=== PATIENT | female | born 1960 | race African-American/Black ===

== ENCOUNTER 2019-05-17 18:24 | Observation (INO) | payer OTHER ==
[2019-05-17] MEDS ORDERED: METOPROLOL TARTRATE 5 MG/5 ML INJ IV ONE ×2 (18:56→19:27)
[2019-05-17] MEDS ORDERED: ENOXAPARIN 100 MG/ML SYR SQ ONE (18:56)
[2019-05-17] MEDS ORDERED: ASPIRIN 81 MG CHEWABLE TABLET ONE (18:56)
[2019-05-17 19:03] LABS: Protime INR 1.32
[2019-05-17 19:04] LABS: Basophils % 1.5 % (0-1.3); Hematocrit 41.5 % (36.0-45.0); Lymphocytes % 20.4 % (15.3-44.8); RBC Red Blood Cell Count 4.98 M/uL (3.86-4.86)
[2019-05-17 19:22] LABS: ALT/SGPT 21 U/L (12-78); AST/SGOT 13 U/L (15-37); Albumin 3.7 g/dL (3.4-5.0); Alkaline Phosphatase 101 U/L (45-117); BUN Blood Urea Nitrogen 8 mg/dL (7-18); Bicarbonate 27 mmol/L (21-32); Bilirubin Direct < 0.1 mg/dL (0-0.2); Bilirubin Total 0.2 mg/dL (0.2-1.0); Glucose Level 127 mg/dL (74-106); NT PRO-BNP 55 pg/mL (<125); Potassium 3.6 mmol/L (3.5-5.1); Protein, Total 8.5 g/dL (6.4-8.2); Sodium Level 143 mmol/L (136-145); Troponin (Emerg Dept Use Only) < 0.02 ng/mL (0.0-0.045)
[2019-05-17] MEDS ORDERED: NITROGLYCERIN 1 GM PKT TD ONE (19:27)
[2019-05-17 19:33] LABS: Blood Morphology Comment NOT SEEN (NOT SEEN); Platelet Estimate ADEQ
--- NOTE | 2019-05-17 19:33 | RAD REPORT ---
EXAM DESCRIPTION: Brando Single View05/17/2019 7:21 pm CLINICAL HISTORY: Chest pain COMPARISON: 2017 FINDINGS: The lungs appear clear of acute infiltrate. The heart is mildly enlarged IMPRESSION: No acute abnormalities displayed
--- NOTE | 2019-05-17 20:07 | EDPHYS ---
Physician Documentation [facility] Name: Chery Mane Age: 58 yrs Sex: Female : 1960 Arrival Date: 05/17/2019 Time: 18:27 Bed 18 Private MD: Caridad Gonzalez ED Physician Edwar Paez HPI: 05/17 18:46 This 58 yrs old Black Female presents to ER via Ambulatory with complaints of Chest pm1 pain. 18:46 The patient or guardian reports chest pain that is located primarily in the mid-sternal pm1 area. Onset: 1 hour prior to arrival. The pain does not radiate. Associated signs and symptoms: Pertinent positives: shortness of breath, Pertinent negatives: abdominal pain, dizziness, headache, nausea, vomiting. The chest pain is described as a pressure. Duration: The patient or guardian reports a single episode, that is still ongoing, but improving. Modifying factors: The symptoms are alleviated by NTG, X1. the symptoms are aggravated by exertion. Severity of pain: in the emergency department the pain has improved. The patient has not recently seen a physician. Patient has not been taking her prescription medications for the past 6 months. Patient is supposed to be taking carvedilol 12.5 mg and simvastatin. Patient with [place] and stent x 1 ten years ago. Historical: - Allergies: 18:45 Codeine; ss 18:45 Sulfa (Sulfonamide Antibiotics); ss 18:45 tramadol; ss 18:45 PENICILLINS; ss - PMHx: 18:45 Myocardial infarction; Hypertension; Hyperlipidemia; ss - PSHx: 18:45 cardiac stent; ss - Immunization history:: Adult Immunizations up to date. - Social history:: Smoking status: Patient/guardian denies using tobacco. - Ebola Screening: : Patient denies exposure to infectious person Patient denies travel to an Ebola-affected area in the 21 days before illness onset. ROS: 18:46 Constitutional: Negative for fever, chills, and weight loss, Eyes: Negative for injury, pm1 pain, redness, and discharge, ENT: Negative for injury, pain, and discharge, Neck: Negative for injury, pain, and swelling. 18:46 Abdomen/GI: Negative for abdominal pain, nausea, vomiting, diarrhea, and constipation, Back: Negative for injury and pain, : Negative for injury, bleeding, discharge, and swelling, MS/Extremity: Negative for injury and deformity, Skin: Negative for injury, rash, and discoloration, Neuro: Negative for headache, weakness, numbness, tingling, and seizure. 18:46 Cardiovascular: Positive for chest pain, palpitations, Negative for edema. 18:46 Respiratory: Positive for shortness of breath. Exam: 18:46 Constitutional: This is a well developed, well nourished patient who is awake, alert, pm1 and in no acute distress. Head/Face: Normocephalic, atraumatic. Eyes: Pupils equal round and reactive to light, extra-ocular motions intact. Lids and lashes normal. Conjunctiva and sclera are non-icteric and not injected. Cornea within normal limits. Periorbital areas with no swelling, redness, or edema. ENT: Nares patent. No nasal discharge, no septal abnormalities noted. Tympanic membranes are normal and external auditory canals are clear. Oropharynx with no redness, swelling, or masses, exudates, or evidence of obstruction, uvula midline. Mucous membranes moist. Neck: Trachea midline, no thyromegaly or masses palpated, and no cervical lymphadenopathy. Supple, full range of motion without nuchal rigidity, or vertebral point tenderness. No Meningismus. Chest/axilla: Normal chest wall appearance and motion. Nontender with no deformity. No lesions are appreciated. Respiratory: Lungs have equal breath sounds bilaterally, clear to auscultation and percussion. No rales, rhonchi or wheezes noted. No increased work of breathing, no retractions or nasal flaring. Abdomen/GI: Soft, non-tender, with normal bowel sounds. No distension or tympany. No guarding or rebound. No evidence of tenderness throughout. 18:46 Cardiovascular: Rate: tachycardic, actual rate is 139 bpm, Rhythm: irregular, Pulses: no pulse deficits are appreciated, Heart sounds: normal, Edema: is not appreciated. Vital Signs: 18:45 BP 148 / 74; Pulse 136; Resp 21; Pulse Ox 98% on R/A; Height 5 ft. 7 in. (170.18 cm); ss Pain 4/10; 18:48 Weight 106.14 kg (R); em 19:00 BP 156 / 84; Pulse 105; Resp 18; Pulse Ox 98% on R/A; em 19:52 BP 129 / 84; Pulse 83; Resp 18; Pulse Ox 97% ; wh 21:30 BP 111 / 55; Pulse 66; Resp 18; Pulse Ox 95% on R/A; wh 21:30 BP 124 / 79; Pulse 70; Resp 18; Pulse Ox 96% on R/A; wh 18:48 Body Mass Index 36.65 (106.14 kg, 170.18 cm) em MDM: 18:35 Patient medically screened. pm1 18:51 Data reviewed: vital signs. Data interpreted: Pulse oximetry: on room air is 98 %. pm1 Interpretation: normal. 20:40 Physician consultation: Edwar Oliveros MD was called at 20:46, was contacted at 20:40, pm1 regarding admission, patient's condition, and will see patient. 05/17 18:38 Order name: Basic Metabolic Panel pm1 05/17 18:38 Order name: CBC with Diff; Complete Time: 19:59 pm1 05/17 18:38 Order name: LFT's pm1 05/17 18:38 Order name: Magnesium; Complete Time: 19:24 pm1 05/17 18:38 Order name: NT PRO-BNP; Complete Time: 19:24 pm1 05/17 18:38 Order name: PT-INR; Complete Time: 19:15 pm1 05/17 18:38 Order name: Troponin (emerg Dept Use Only); Complete Time: 19:24 pm1 05/17 18:39 Order name: Basic Metabolic Panel; Complete Time: 19:24 EDMS 05/17 18:39 Order name: Liver (Hepatic) Function; Complete Time: 19:24 EDMS 05/17 19:06 Order name: Manual Differential; Complete Time: 19:59 EDMS 05/17 21:58 Order name: Basic Metabolic Panel EDMS 05/17 21:58 Order name: Basic Metabolic Panel EDMS 05/17 21:58 Order name: CBC with Automated Diff EDMS 05/17 21:58 Order name: CBC with Automated Diff EDMS 05/17 18:38 Order name: XRAY Chest (1 view); Complete Time: 22:39 pm1 05/17 18:38 Order name: EKG; Complete Time: 18:39 pm1 05/17 21:57 Order name: CONS Physician Consult EDMS 05/17 21:57 Order name: Heart Healthy [facility] 05/17 21:58 Order name: Echo with Doppler [facility] 05/17 21:58 Order name: EKG Electrocardiogram [facility] 05/17 21:58 Order name: Lipid Profile [facility] 05/17 21:58 Order name: Lipid Profile [facility] 05/17 21:58 Order name: Troponin I [facility] 05/17 21:58 Order name: Troponin I [facility] 05/17 21:58 Order name: Troponin I [facility] 05/17 18:38 Order name: Cardiac monitoring; Complete Time: 18:43 pm1 05/17 18:38 Order name: EKG - Nurse/Tech; Complete Time: 18:43 pm1 05/17 18:38 Order name: IV Saline Lock; Complete Time: 18:43 pm1 05/17 18:38 Order name: Labs collected and sent; Complete Time: 18:49 pm1 05/17 18:38 Order name: O2 Per Protocol; Complete Time: 18:49 pm1 05/17 18:38 Order name: O2 Sat Monitoring; Complete Time: 18:49 pm1 05/17 19:13 Order name: EKG - Nurse/Tech; Complete Time: 19:20 05/17 21:58 Order name: EKG Electrocardiogram [facility] EC:46 Rate is 139 beats/min. Rhythm is irregular. QRS [place] is Normal. SC interval is normal. pm1 No Q waves. T waves are Normal. No ST changes noted. Clinical impression: Atrial Fibrillation. 20:25 Rate is 88 beats/min. Rhythm is regular, Normal Sinus Rhythm with No ectopy. QRS [place] pm1 is Normal. No Q waves. T waves are Normal. No ST changes noted. Clinical impression: Normal ECG. Administered Medications: 18:58 Drug: Aspirin 325 mg Route: PO; em 20:42 Follow up: Response: No adverse reaction wh 19:12 Drug: Lovenox 1 mg/kg Route: Sub-Q; Site: right lower abdomen; wh 20:42 Follow up: Response: No adverse reaction wh 19:29 Drug: Nitro-Bid Ointment 2 % 1 inches Route: Transdermal; Site: anterior chest wall; wh 20:42 Follow up: Response: No adverse reaction; Marked relief of symptoms wh 19:36 Drug: Lopressor 5 mg {Note: HR 118 BP 126/107.} Route: IVP; Site: right forearm; wh 20:43 Follow up: Response: No adverse reaction 20:58 Drug: Lopressor 25 mg Route: PO; 21:50 Follow up: Response: No adverse reaction Disposition: 05/18 16:46 Co-signature as Attending Physician, Edwar Paez MD. ma2 Disposition: 05/17/19 20:06 Hospitalization ordered by Edwar Oliveros for Observation. Preliminary diagnosis are Unspecified atrial fibrillation - new onset, Chest pain, unspecified. - Bed requested for Telemetry/MedSurg (observation). - Status is Observation. - Condition is Stable. - Problem is new. - Symptoms have improved. UTI on Admission? No Signatures: Dispatcher [employer] EDAna Laura Melendez RN RN Yoav Moise, CREDENTIALING MANAGER CREDENTIALING MANAGER Jen Kimbrough RN RN ss Nathen Linn, ARCHIVES SPECIALIST ARCHIVES SPECIALIST pm1 Gianni Lynne Jeannine, MD ADRI Vann ma2 Corrections: (The following items were deleted from the chart) 05/17 22:10 20:06 Hospitalization Ordered by Edwar Oliveros MD for Observation. Preliminary diagnosis is Unspecified atrial fibrillation - new onsetChest pain, unspecified. Bed requested for Telemetry/MedSurg (observation). Status is Observation. Condition is Stable. Problem is new. Symptoms have improved. UTI on Admission? No. pm1 23:03 22:10 05/17/2019 20:06 Hospitalization Ordered by Edwar Oliveros MD for Observation. Preliminary diagnosis is Unspecified atrial fibrillation - new onsetChest pain, unspecified. Bed requested for Telemetry/MedSurg (observation). Status is Observation. Condition is Stable. Problem is new. Symptoms have improved. UTI on Admission? No. mw
--- NOTE | 2019-05-17 20:07 | ER ---
Nurse's Notes [facility] Name: Chery Mane Age: 58 yrs Sex: Female : 1960 Arrival Date: 05/17/2019 Time: 18:27 Bed 18 Private MD: Caridad Gonzalez Diagnosis: Chest pain, unspecified;Unspecified atrial fibrillation-new onset Presentation: 05/17 18:40 Presenting complaint: Patient states: abd cramping that began just prior to arrival, ss that lead to nausea. Patient reports she began having chest pain shortly after with palpitations, which she then took a nitro SL which seemed to relieve the pain. Patient reports she has a history of HTN and high cholesterol, but has not been taking her medications because she has not been able to afford them. Transition of care: patient was not received from another setting of care. Onset of symptoms was May 17, 2019. Risk Assessment: Do you want to hurt yourself or someone else? Patient reports no desire to harm self or others. Initial Sepsis Screen: Does the patient meet any 2 criteria? RR > 20 per min. HR > 90 bpm. Does the patient have a suspected source of infection? No. Patient's initial sepsis screen is negative. Note Patient is unsure whether or not she has a history of Atrial fib. 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 18:40 Method Of Arrival: Ambulatory ss 18:40 Acuity: JOHANN 2 ss Historical: - Allergies: 18:45 Codeine; ss 18:45 Sulfa (Sulfonamide Antibiotics); ss 18:45 tramadol; ss 18:45 PENICILLINS; ss - PMHx: 18:45 Myocardial infarction; Hypertension; Hyperlipidemia; ss - PSHx: 18:45 cardiac stent; ss - Immunization history:: Adult Immunizations up to date. - Social history:: Smoking status: Patient/guardian denies using tobacco. - Ebola Screening: : Patient denies exposure to infectious person Patient denies travel to an Ebola-affected area in the 21 days before illness onset. Screenin:47 Abuse screen: Denies threats or abuse. Denies injuries from another. Nutritional ss screening: No deficits noted. Tuberculosis screening: Never had TB. Fall Risk None identified. 18:50 Abuse screen: Denies threats or abuse. Nutritional screening: No deficits noted. em Tuberculosis screening: No symptoms or risk factors identified. Fall Risk None identified. Assessment: 18:47 General: Appears in no apparent distress. comfortable, Behavior is calm, cooperative, ss Denies fever, feeling ill, fatigue, chills. Pain: Complains of pain in chest Pain does not radiate. Pain currently is 4 out of 10 on a pain scale. Quality of pain is described as pressure, Pain began 1 hour ago. Is continuous, Alleviated by Nitro. Neuro: Level of Consciousness is awake, alert, obeys commands, Oriented to person, place, time, situation, Speech is normal, Facial symmetry appears normal, Pupils are PERRLA. Cardiovascular: Capillary refill < 3 seconds is brisk in bilateral fingers. Cardiovascular: Rhythm is atrial fibrillation with rapid ventricular response. Respiratory: Reports shortness of breath on exertion since 1 hour ago Airway is patent Respiratory effort is even, unlabored, Respiratory pattern is regular, symmetrical, Breath sounds are clear bilaterally. GI: Reports brief nausea after episode of abd cramping 1 hour ago just prior to chest pain beginning. : No signs and/or symptoms were reported regarding the genitourinary system. EENT: Oral mucosa is moist. Throat is clear. Derm: Skin is pink, warm \T\ dry. normal. Musculoskeletal: Circulation, motion, and sensation intact. Range of motion: intact in all extremities, Swelling absent. 19:03 Reassessment: held Lopressor, pt rhythm SR, provider notified. em 19:15 Reassessment: Patient appears in no apparent distress at this time. Patient and/or family updated on plan of care and expected duration. Pain level reassessed. Patient is alert, oriented x 3, equal unlabored respirations, skin warm/dry/pink. 19:51 Reassessment: Patient appears in no apparent distress at this time. No changes from previously documented assessment. Patient and/or family updated on plan of care and expected duration. Pain level reassessed. Patient is alert, oriented x 3, equal unlabored respirations, skin warm/dry/pink. 20:10 Reassessment: POC Discussed with Nathen Linn GEOSPATIAL EXTRACTOR ANALYSIS for hospitalization. Repeat EKG wh done with SR. Pt with no more chest pain . 21:00 Reassessment: Patient appears in no apparent distress at this time. No changes from previously documented assessment. Patient and/or family updated on plan of care and expected duration. Pain level reassessed. Patient is alert, oriented x 3, equal unlabored respirations, skin warm/dry/pink. Patient denies pain at this time. 22:05 Reassessment: Patient appears in no apparent distress at this time. No changes from previously documented assessment. Patient and/or family updated on plan of care and expected duration. Pain level reassessed. Patient is alert, oriented x 3, equal unlabored respirations, skin warm/dry/pink. Patient denies pain at this time. Patient states feeling better. Patient states symptoms have improved. 23:00 Reassessment: Patient appears in no apparent distress at this time. No changes from previously documented assessment. Patient and/or family updated on plan of care and expected duration. Pain level reassessed. Patient is alert, oriented x 3, equal unlabored respirations, skin warm/dry/pink. Patient denies pain at this time. Patient states feeling better. Patient states symptoms have improved. Vital Signs: 18:45 BP 148 / 74; Pulse 136; Resp 21; Pulse Ox 98% on R/A; Height 5 ft. 7 in. (170.18 cm); ss Pain 4/10; 18:48 Weight 106.14 kg (R); em 19:00 BP 156 / 84; Pulse 105; Resp 18; Pulse Ox 98% on R/A; em 19:52 BP 129 / 84; Pulse 83; Resp 18; Pulse Ox 97% ; wh 21:30 BP 111 / 55; Pulse 66; Resp 18; Pulse Ox 95% on R/A; wh 21:30 BP 124 / 79; Pulse 70; Resp 18; Pulse Ox 96% on R/A; wh 18:48 Body Mass Index 36.65 (106.14 kg, 170.18 cm) em ED Course: 18:27 Patient arrived in ED. mr 18:27 Caridad Gonzalez is Private Physician. mr 18:34 Nathen Linn NP is PHCP. pm1 18:34 Edwar Paez MD is Attending Physician. pm1 18:38 Yoav Moise LVN is Primary Nurse. em 18:44 Triage completed. ss 18:45 Arm band placed on right wrist. ss 18:47 Patient has correct armband on for positive identification. Placed in gown. Bed in low ss position. Call light in reach. Side rails up X 1. Adult w/ patient. phototypesetting equipment monitor on. Pulse ox on. NIBP on. 18:47 Patient maintains SpO2 saturation greater than 95% on room air. ss 19:22 XRAY Chest (1 view) In Process Unspecified. EDMS 20:05 Edwar Oliveros MD is Hospitalizing Provider. pm1 22:58 No provider procedures requiring assistance completed. Patient admitted, IV remains in place. Administered Medications: 18:58 Drug: Aspirin 325 mg Route: PO; em 20:42 Follow up: Response: No adverse reaction 19:12 Drug: Lovenox 1 mg/kg Route: Sub-Q; Site: right lower abdomen; 20:42 Follow up: Response: No adverse reaction 19:29 Drug: Nitro-Bid Ointment 2 % 1 inches Route: Transdermal; Site: anterior chest wall; 20:42 Follow up: Response: No adverse reaction; Marked relief of symptoms 19:36 Drug: Lopressor 5 mg {Note: HR 118 BP 126/107.} Route: IVP; Site: right forearm; 20:43 Follow up: Response: No adverse reaction 20:58 Drug: Lopressor 25 mg Route: PO; 21:50 Follow up: Response: No adverse reaction Outcome: 20:06 Decision to Hospitalize by Provider. pm1 22:59 Admitted to Tele accompanied by nurse, via wheelchair, room 406, with chart, Report wh called to Sandra Noble RN 22:59 Condition: stable 22:59 Instructed on the need for admit. 23:03 Patient left the ED. Signatures: Dispatcher [employer] HAZELMO Svetlana Still MoiseYoav, MANAGER HOTEL MANAGER HOTEL em Jen Urias, ROBIN RN ss Nathen Linn, GEOSPATIAL EXTRACTOR ANALYSIS GEOSPATIAL EXTRACTOR ANALYSIS pm1 Gianni Lynne Corrections: (The following items were deleted from the chart) 18:50 18:47 Respiratory: Airway is patent Respiratory effort is even, unlabored, Respiratory ss pattern is regular, symmetrical, Breath sounds are clear bilaterally. ss
[2019-05-17] MEDS ORDERED: METOPROLOL TAR 25 MG TAB ONE (20:52)
[2019-05-17] MEDS ORDERED: ACETAMINOPHEN 500 MG TAB PO PRN (21:52)
[2019-05-17] MEDS ORDERED: ALPRAZOLAM 0.25 MG TABLET PO PRN (21:52)
[2019-05-17 23:35] VITALS: BMI 37.3
[2019-05-18 04:27] LABS: Urine Appearance CLEAR; Urine Bilirubin NEGATIVE (NEG); Urine Blood NEGATIVE (NEG); Urine Color YELLOW; Urine Glucose NEGATIVE (NEG); Urine Protein NEGATIVE (NEG); Urine Specific Gravity >=1.030 (1.005-1.030)
[2019-05-18 04:34] LABS: Absolute Lymphocytes (CBC) 2.6 K/uL (0.7-4.9); Hematocrit 37.9 % (36.0-45.0); Lymphocytes % 30.6 % (15.3-44.8); MPV 9.3 fL (7.6-11.3); RBC Red Blood Cell Count 4.48 M/uL (3.86-4.86)
[2019-05-18 04:42] LABS: Potassium 3.9 mmol/L (3.5-5.1)
[2019-05-18 04:44] LABS: Urine Microscopic Reflex NO UMIC
[2019-05-18 05:10] LABS: Troponin I 0.03 ng/mL (0.0-0.045)
--- NOTE | 2019-05-18 07:23 | P.HP ---
Certification for Inpatient Patient admitted to: Observation With expected LOS: <2 Midnights Patient will require the following post-hospital care: None Practitioner: I am a practitioner with admitting privileges, knowledge of patient current condition, hospital course, and medical plan of care. Services: Services provided to patient in accordance with Admission requirements found in Title 42 Section 412.3 of the Code of Federal Regulations Patient History Date of Service: 05/17/19 Reason for admission: Chest pain r/o ACS History of Present Illness: Patient is a 58-year-old female came to the hospital with chest pain. Patient has some nausea. Patient hasn't been taking her medications as she was able to afford them. She did have some nitro laying around so she took a sublingual nitro. Her chest pain resolved. She came into the hospital for further evaluation. In the emergency room her heart rate was elevated. She was found to be in atrial fibrillation with EKG. She was given Lopressor x3 in her rate went to a sinus rhythm. She was also given Lovenox. Patient's initial troponin was negative. She will be admitted to the hospital for further evaluation. Concern for unstable angina as well. Will do a stress test and pending results may need further intervention. Allergies tramadol Allergy (Severe, Verified 12/25/11 14:45) Nausea/Vomiting codeine [Codeine] Allergy (Verified 12/24/11 12:36) Nausea/Vomiting Penicillins Allergy (Unverified 05/25/17 12:45) Unknown Sulfa (Sulfonamide Antibiotics) [Sulfa(Sulfonamide Antibiotics)] Allergy ( Verified 12/24/11 12:36) Rash Penici Allergy (Uncoded 03/21/17 01:35) Unknown Home Medications: Carvedilol [Coreg] 12.5 mg PO BID 05/18/19 - Past Medical/Surgical History Has patient received pneumonia vaccine in the past: No Diabetic: No -: [place] w/ stent placement -: HTN -: HLD -: JELANI w/ Cpap use -: R ankle surgery - Family History Father Medical History: Heart disease Notes: heart disease Sister Medical History: Stroke Notes: stroke Brother Medical History: Heart disease Notes: Heart attack Grand mother Medical History: Heart disease Notes: CHF Grand father Medical History: Stroke Notes: stroke - Social History Smoking Status: Never smoker Alcohol use: No CD- Drugs: No Caffeine use: Yes Place of Residence: Home Review of Systems 10-point ROS is otherwise unremarkable Physical Examination - Vital Signs Temperature: 97 F Blood Pressure: 129/61 Pulse: 65 Respirations: 16 Pulse Ox (%): 97 - Physical Exam General: Alert, In no apparent distress, Oriented x3 HEENT: Atraumatic, PERRLA, Mucous membr. moist/pink, EOMI, Sclerae nonicteric Neck: Supple, 2+ carotid pulse no bruit, No LAD, Without JVD or thyroid abnormality Respiratory: Clear to auscultation bilaterally, Normal air movement Cardiovascular: Regular rate/rhythm, Normal S1 S2, No murmurs Gastrointestinal: Normal bowel sounds, Soft and benign, Non-distended, No tenderness Musculoskeletal: No clubbing, No swelling, No tenderness Integumentary: No rashes Neurological: Normal gait, Normal speech, Normal strength at 5/5 x4 extr, Normal tone, Sensation intact, Cranial nerves 3-12 intact, Normal affect Lymphatics: No axilla or inguinal lymphadenopathy - Studies Laboratory Data (last 24 hrs) 05/17/19 18:50: PT 15.4 H, INR 1.32 05/17/19 18:50: WBC 9.9, Hgb 13.7, Hct 41.5, Plt Count 258 05/17/19 18:50: Sodium 143, Potassium 3.6, BUN 8, Creatinine 1.03, Glucose 127 H , Magnesium 2.0, Total Bilirubin 0.2, AST 13 L, ALT 21, Alkaline Phosphatase 101 Assessment & Plan - Problems (Diagnosis) (1) Chest pain, rule out acute myocardial infarction Current Visit: Yes Status: Acute (2) Unstable angina Current Visit: Yes Status: Acute (3) Atrial fibrillation Current Visit: Yes Status: Acute (4) Hypertension Current Visit: Yes Status: Acute Qualifiers: Hypertension type: essential hypertension Qualified Code(s): I10 - Essential (primary) hypertension - Plan 1. Serial troponins and EKG 2. Cardiology consultation to evaluate chest pain & atrial fibrillation 3. Echocardiogram and stress test in the morning 4. Anti-platelet therapy, anticoagulation, beta-danielito, statin, and O2 as needed 5. IV morphine for pain 6. Nitro paste 7. Strict blood pressure control 8. GI and DVT prophylaxis Discharge Plan: Home Plan to discharge in: 24 Hours - Advance Directives Does patient have a Living Will: No Does patient have a Durable POA for Healthcare: No - Code Status/Comfort Care Code Status Assessed: Yes Code Status: Full Code Critical Care: No Time Spent Managing PTS Care (In Minutes): 45
[2019-05-18] MEDS ORDERED: METOPROLOL TAR 50 MG TAB PO SCH ×2 (08:00→09:00)
[2019-05-18] MEDS: NITROGLYCERIN 1 GM PKT TD SCH ×2 (08:00→08:16)
[2019-05-18 08:04] LABS: Thyroid Stimulating Hormone 1.92 uIU/mL (0.360-3.740)
[2019-05-18] MEDS ORDERED: REGADENOSON 0.4 MG/5 ML SYR IV ONE (08:11)
--- NOTE | 2019-05-18 08:38 | EKG ---
Test Date: 2019-05-17 Test Time: 20:25:28 Entry Level Electrician: EBONIE MEASUREMENT RESULTS: Intervals: Rate: 88 RI: 138 QRSD: 78 QT: 368 QTc: 445 [place]: P: 48 RI: 138 QRS: 52 T: 51 INTERPRETIVE STATEMENTS: Normal sinus rhythm Normal ECG Compared to ECG 05/17/2019 19:16:33 Myocardial infarct finding no longer present Electronically Signed On 05-18-19 08:37:33 LEARNING SUPPORT SERVICES DIRECTOR by Michael Cornejo
[2019-05-18] MEDS ORDERED: SOTALOL HCL 80 MG TAB PO ONE (08:51)
[2019-05-18] MEDS ORDERED: APIXABAN 5 MG TABLET PO SCH (09:00)
[2019-05-18] MEDS ORDERED: ASPIRIN EC 81 MG TAB PO SCH (09:00)
--- NOTE | 2019-05-18 10:57 | P.DS ---
Admission Date: 05/17/19 Discharge Date: 05/18/19 Primary Care Provider: Len Gonzalez NP; Cardiology-Dr. Dodson Disposition: ROUTINE DISCHARGE Discharge Condition: GOOD Reason for Admission: Chest pain r/o ACS Consultations: Cardiology-Dr. Cornejo Procedures: ECHO: EF 61% LEFT VENTRICULAR WALL MOTION: NORMAL DOPPLER/COLOR FLOW: NO AORTIC STENOSIS OR AORTIC REGURGITATION. NORMAL CARDIAC DOPPLER. COMMENTS: NORMAL LEFT VENTRICULAR EJECTION FRACTION. MILD AORTIC SCLEROSIS WITH NO AORTIC STENOSIS OR AORTIC REGURGITATION. STUDY WAS DONE DURING NORMAL SINUS RHYTHM. Medical Problem List: Chest pain secondary to new onset atrial fibrillation with RVR, now normal sinus rhythm Hypertension Hyperlipidemia Brief History of Present Illness: 58-year-old female presented to emergency room with chest pain and nausea. Patient with history of hypertension and hyperlipidemia. Patient admits not taking her medication as she has not been able to get a refill from her PCP. She reports not being able to afford her medication. In the ER patient was found to have atrial fibrillation with RVR on EKG. Patient was given Lopressor. Patient went to sinus rhythm. Patient was admitted for further evaluation. Hospital Course: Patient presented with chest pain. Patient found to have new onset atrial fibrillation with RVR in the emergency room. Patient was given IV Lopressor. Patient converted to normal sinus rhythm. Patient was admitted for further evaluation. Patient seen and evaluated by Cardiology. Cardiology recommended initiation of medication including Eliquis and Betapace. No further intervention is needed at this time. At discharge she will continue with Eliquis 5 mg 1 pill twice daily and Betapace 40 mg 1 pill twice daily. Education on atrial fibrillation, Eliquis and Betapace will be provided. Recommend to follow up with cardiology in 1-2 weeks to follow up this hospitalization. Recommend to recheck lab-BMP and CBC in 1-2 weeks to monitor her progress. Social work consulted to help provide resource is to continue her new medications. Patient with history of hypertension and hyperlipidemia. Patient had not been able to follow up with a PCP to refill medication. Patient previously on carvedilol. Medication has been discontinued since the patient will be on new medication including Betapace. At discharge patient will continue with her regimen as stated above. Patient will continue with Lipitor 20 mg daily for her hyperlipidemia. Recommend to recheck lab-CMP and fasting lipid panel in 4- 6 weeks to monitor progress. Vital Signs/Physical Exam: Temp Pulse Resp BP Pulse Ox 96.8 F 68 18 139/77 96 05/18/19 08:00 05/18/19 08:00 05/18/19 08:00 05/18/19 08:00 05/18/19 08:00 General: Alert, In no apparent distress, Oriented x3, Cooperative HEENT: Atraumatic Neck: Supple Respiratory: Clear to auscultation bilaterally, Normal air movement Cardiovascular: Normal pulses, Regular rate/rhythm Gastrointestinal: Normal bowel sounds, Soft and benign, Non-distended, No tenderness, No masses, No rebound, No guarding Musculoskeletal: No erythema, No tenderness, No warmth Integumentary: No erythema, No warmth, No cyanosis Neurological: Normal speech, Normal strength at 5/5 x4 extr, Normal tone, Normal affect Laboratory Data at Discharge: WBC 8.4 K/uL (4.3-10.9) D 05/18/19 03:35 Hgb 12.3 g/dL (12.0-15.0) 05/18/19 03:35 Hct 37.9 % (36.0-45.0) 05/18/19 03:35 Plt Count 235 K/uL (152-406) 05/18/19 03:35 PT 15.4 SECONDS (9.5-12.5) H 05/17/19 18:50 INR 1.32 05/17/19 18:50 Sodium 143 mmol/L (136-145) 05/18/19 03:35 Potassium 3.9 mmol/L (3.5-5.1) 05/18/19 03:35 BUN 9 mg/dL (7-18) 05/18/19 03:35 Creatinine 0.88 mg/dL (0.55-1.3) 05/18/19 03:35 Glucose 90 mg/dL (74-106) 05/18/19 03:35 Magnesium 2.0 mg/dL (1.8-2.4) 05/17/19 18:50 Total Bilirubin 0.2 mg/dL (0.2-1.0) 05/17/19 18:50 AST 13 U/L (15-37) L 05/17/19 18:50 ALT 21 U/L (12-78) 05/17/19 18:50 Alkaline Phosphatase 101 U/L (45-117) 05/17/19 18:50 Troponin I 0.03 ng/mL (0.0-0.045) 05/18/19 03:35 Triglycerides Cancelled 05/18/19 06:00 Cholesterol Cancelled 05/18/19 06:00 HDL Cholesterol Cancelled 05/18/19 06:00 Cholesterol/HDL Ratio Cancelled 05/18/19 06:00 Home Medications: Apixaban [Eliquis] 5 mg PO BID #60 tablet 05/18/19 Atorvastatin Calcium [Lipitor*] 20 mg PO BEDTIME #30 tab 05/18/19 Sotalol HCl [Betapace*] 40 mg PO BID 6AM 6PM #60 tab 05/18/19 New Medications: Apixaban [Eliquis] 5 mg PO BID #60 tablet Atorvastatin Calcium [Lipitor*] 20 mg PO BEDTIME #30 tab Sotalol HCl [Betapace*] 40 mg PO BID 6AM 6PM #60 tab Patient Discharge Instructions: 1. Follow up with her PCP in 1 week to follow up this hospitalization. 2. Patient presented with chest pain. Patient found to have new onset atrial fibrillation with RVR in the emergency room. Patient was given IV Lopressor. Patient converted to normal sinus rhythm. Patient was admitted for further evaluation. Patient seen and evaluated by Cardiology. Cardiology recommended initiation of medication including Eliquis and Betapace. No further intervention is needed at this time. At discharge she will continue with Eliquis 5 mg 1 pill twice daily and Betapace 40 mg 1 pill twice daily. Education on atrial fibrillation, Eliquis and Betapace will be provided. Recommend to follow up with cardiology in 1-2 weeks to follow up this hospitalization. Recommend to recheck lab-BMP and CBC in 1-2 weeks to monitor her progress. Social work consulted to help provide resource is to continue her new medications. 3. Patient with history of hypertension and hyperlipidemia. Patient had not been able to follow up with a PCP to refill medication. Patient previously on carvedilol. Medication has been discontinued since the patient will be on new medication including Betapace. At discharge patient will continue with her regimen as stated above. Patient will continue with Lipitor 20 mg daily for her hyperlipidemia. Recommend to recheck lab-CMP and fasting lipid panel in 4-6 weeks to monitor progress. Diet: AHA Activity: Fall precautions Time spent managing pt's care (in minutes): 55
--- NOTE | 2019-05-18 11:44 | ECHO ---
HEIGHT: 5 ft 7 in WEIGHT: 238 lb 9.6 oz DATE OF STUDY: 05/18/[address]: Edwar Oliveros MD 2-DIMENSIONAL: YES M.MODE: YES DOPPLER: YES COLOR FLOW: YES TDS: NO PORTABLE: NO DEFINITY: NO BUBBLE STUDY: NO DIAGNOSIS: ATRIAL FIBRILLATION CARDIAC HISTORY: CATHERIZATION: YES SURGERY: NO PROSTHETIC VALVE: NO PACEMAKER: NO MEASUREMENTS (cm) DIASTOLIC (NORMALS) SYSTOLIC (NORMALS) IVSd 1.0 (0.6-1.2) LA Diam 3.5 (1.9-4.0) LVEF 61% LVIDd 4.3 (3.5-5.7) LVIDs 2.9 (2.0-3.5) %FS 32% LVPWd 1.0 (0.6-1.2) Ao Diam 2.5 (2.0-3.7) 2 DIMENSIONAL ASSESSMENT: RIGHT ATRIUM: NORMAL LEFT ATRIUM: NORMAL RIGHT VENTRICLE: NORMAL LEFT VENTRICLE: NORMAL TRICUSPID VALVE: NORMAL MITRAL VALVE: NORMAL PULMONIC VALVE: NORMAL AORTIC VALVE:MILD LEAFLET THICKENING, 3 CUSP PERICARDIAL EFFUSION: NONE AORTIC ROOT: NORMAL LEFT VENTRICULAR WALL MOTION: NORMAL DOPPLER/COLOR FLOW: NO AORTIC STENOSIS OR AORTIC REGURGITATION. NORMAL CARDIAC DOPPLER. COMMENTS: NORMAL LEFT VENTRICULAR EJECTION FRACTION. MILD AORTIC SCLEROSIS WITH NO AORTIC STENOSIS OR AORTIC REGURGITATION. STUDY WAS DONE DURING NORMAL SINUS RHYTHM. TECHNOLOGIST: Kandi MARTINES
[2019-05-18 12:18] VITALS: BP 147/71; TEMP 96.9
--- NOTE | 2019-05-18 13:19 | CON ---
Identifying Data: 58-year-old woman. Chief Complaint: Chest pain. Reason For Consult: Atrial fibrillation. History Of Present Illness: Ms. Mane started having chest pain. She felt her heart fluttering. R oughly an hour later, she came to the hospital. She was in atrial fibrillation. She is in sinus rhy thm presently on telemetry. I do not believe an EKG has been done to prove that. This is the patien t's first episode of chest pain. She had a cardiac cath a little bit more than a year ago that showe d minor coronary plaquing, normal ejection fraction. As an outpatient, she takes carvedilol 12.5 b.i .d. for hypertension. Since being in the hospital, her troponins are all normal. She has resumed si nus rhythm and she feels back to her usual self. Allergies: SHE IS ALLERGIC TO TRAMADOL, CODEINE, PENICILLINS, AND SULFA ANTIBIOTICS. Physical Examination: Vital Signs: 5 feet 7 inches. 238 pounds. General: Obese, alert, oriented, pleasant. Not in distress. Lungs: Clear. Cardiac: Within normal limits. Abdomen: Soft. Extremities: No edema, cyanosis, or clubbing. Laboratory Data: Troponins are all normal. Impression: The patient has paroxysmal atrial fibrillation. We should stop her carvedilol and give her Betapace and Eliquis. Thank you very much for your kind referral of Ms. Mane. I will follow her with you. DIMITRI Voice ID: [id number] Report ID: [id number]
[2019-05-18 14:54] VITALS: O2SAT 95
--- NOTE | 2019-05-18 15:56 | EKG ---
Test Date: 2019-05-17 Test Time: 18:39:38 Sales Trader: ONDINA MEASUREMENT RESULTS: Intervals: Rate: 139 DC: QRSD: 80 QT: 308 QTc: 468 [place]: P: DC: QRS: 62 T: -42 INTERPRETIVE STATEMENTS: Atrial fibrillation with rapid ventricular response Nonspecific ST and T wave abnormality Abnormal ECG Compared to ECG 12/26/2011 07:20:14 ST (T wave) deviation now present Sinus bradycardia no longer present Electronically Signed On 05-18-19 15:54:31 ALLIED HEALTH TEACHER by Michael Cornejo
--- NOTE | 2019-05-18 15:56 | EKG ---
Test Date: 2019-05-17 Test Time: 19:16:33 Fruit Loader Machine Operator: ONDINA MEASUREMENT RESULTS: Intervals: Rate: 99 CA: 130 QRSD: 82 QT: 360 QTc: 462 [place]: P: 47 CA: 130 QRS: 64 T: 131 INTERPRETIVE STATEMENTS: Normal sinus rhythm Lateral infarct, age undetermined Abnormal ECG Compared to ECG 05/17/2019 18:39:38 Myocardial infarct finding now present Atrial fibrillation no longer present ST (T wave) deviation no longer present Electronically Signed On 05-18-19 15:54:27 HOUSEKEEPING COORDINATOR by Michael Cornejo
[2019-05-18] MEDS ORDERED: SOTALOL HCL 80 MG TAB PO SCH (18:00)
[2019-05-18] MEDS ORDERED: ATORVASTATIN 20 MG TAB PO SCH (21:00)
== END 2019-05-18 13:56 | disposition home or self-care (01) ==
LOC: ER 18:24 → 4TH 22:41
PROVIDERS: ADMIT Hospitalist; ATTEND Family Medicine
DX: I48.91 Unspecified atrial fibrillation (principal); I10 Essential (primary) hypertension; E78.5 Hyperlipidemia, unspecified; Z88.0 Allergy status to penicillin; Z88.2 Allergy status to sulfonamides
CPT/HCPCS: 93005 ×3; 93306; 85025 ×2; 80048 ×2; 36415; 83735; 85610; 80061; 80076; 84443; 81003; 84484 ×3; 84439; 83880; 71045; 96372; 96374; 99285; J1650; G0378 ×2; J2785

== ENCOUNTER 2020-04-09 16:15 | Observation (INO) | payer OTHER ==
[2020-04-09 18:10] LABS: Absolute Lymphocytes (CBC) 1.8 K/uL (0.7-4.9); Basophils % 1.4 % (0-1.3); Hematocrit 40.7 % (36.0-45.0); Lymphocytes % 21.9 % (15.3-44.8); MPV 8.8 fL (7.6-11.3); RBC Red Blood Cell Count 4.91 M/uL (3.86-4.86)
[2020-04-09 18:11] LABS: Protime INR 1.57
--- NOTE | 2020-04-09 18:37 | RAD REPORT ---
EXAM DESCRIPTION: RAD - Chest Single View - 04/09/2020 5:50 pm CLINICAL HISTORY: CHEST PAIN Chest pain. COMPARISON: Chest Single View dated 05/17/2019; Chest Pa And Lat (2 Views) dated 03/21/2017; CHEST PA AND LAT 2 VIEW dated 05/21/2012; CHEST SINGLE VIEW dated 12/24/2011 FINDINGS: Portable technique limits examination quality. Mild interstitial pulmonary edema. The heart is moderately enlarged in size. No displaced fractures. IMPRESSION: Mild CHF.
[2020-04-09 18:42] LABS: ALT/SGPT 25 U/L (12-78); AST/SGOT 15 U/L (15-37); Albumin 3.4 g/dL (3.4-5.0); Alkaline Phosphatase 99 U/L (45-117); BUN Blood Urea Nitrogen 10 mg/dL (7-18); Bicarbonate 29 mmol/L (21-32); Bilirubin Direct 0.1 mg/dL (0-0.2); Bilirubin Total 0.4 mg/dL (0.2-1.0); Glucose Level 105 mg/dL (74-106); Magnesium 2.1 mg/dL (1.8-2.4); NT PRO-BNP 56 pg/mL (<125); Potassium 3.7 mmol/L (3.5-5.1); Protein, Total 7.9 g/dL (6.4-8.2); Sodium Level 142 mmol/L (136-145); Troponin (Emerg Dept Use Only) < 0.02 ng/mL (0.0-0.045)
[2020-04-09] MEDS ORDERED: FENTANYL CITR 100 MCG/2 ML ONE (18:46)
--- NOTE | 2020-04-09 18:58 | ER ---
Nurse's Notes [facility] Name: Chery Mane Age: 59 yrs Sex: Female : 1960 Arrival Date: 04/09/2020 Time: 16:16 Bed 13 Private MD: Caridad Gonzalez Diagnosis: Fluid overload, unspecified;Chest pain, unspecified Presentation: 04/09 16:34 Chief complaint: Patient states: Chest pain x 3 days, on the L side, intermittent, ca1 described as sharp pain in the beginning now a cramping pain, non-radiating, pain scale 7/10. Denies injury to chest, Denies cough. Reports CAD with stent. Reports Hx of heart attack. Coronavirus screen: Client denies travel out of the [place] in the last 14 days. At this time, the client does not indicate any symptoms associated with coronavirus-19. Ebola Screen: Patient negative for fever greater than or equal to 101.5 degrees Fahrenheit, and additional compatible Ebola Virus Disease symptoms Patient denies exposure to infectious person. Patient denies travel to an Ebola-affected area in the 21 days before illness onset. No symptoms or risks identified at this time. Initial Sepsis Screen: Does the patient meet any 2 criteria? No. Patient's initial sepsis screen is negative. Does the patient have a suspected source of infection? No. Patient's initial sepsis screen is negative. Risk Assessment: Do you want to hurt yourself or someone else? Patient reports no desire to harm self or others. Onset of symptoms was April 09, 2020. 16:34 Method Of Arrival: Ambulatory ca1 16:34 Acuity: JOHANN 3 ca1 Historical: - Allergies: 16:39 Codeine; ca1 16:39 Sulfa (Sulfonamide Antibiotics); ca1 16:39 PENICILLINS; ca1 16:39 tramadol; ca1 - Home Meds: 16:39 Eliquis 5 mg oral tab 1 tab 2 times per day [Active]; sotalol 80 mg Oral tab 1 tab 2 ca1 times per day [Active]; atorvastatin 20 mg oral tab 1 tab once daily [Active]; - PMHx: 16:39 Hyperlipidemia; Myocardial infarction; Hypertension; CAD; ca1 - PSHx: 16:39 cardiac stent; ca1 - Immunization history:: Adult Immunizations up to date. - Social history:: Smoking status: Patient/guardian denies using tobacco, the patient reports quitting approximately 15 years ago. Screenin:59 Abuse screen: Denies threats or abuse. Nutritional screening: No deficits noted. jd3 Tuberculosis screening: No symptoms or risk factors identified. Fall Risk Ambulatory Aid- None/Bed Rest/Nurse Assist (0 pts). Gait- Normal/Bed Rest/Wheelchair (0 pts) Mental Status- Oriented to own ability (0 pts). Total Silveira Fall Scale indicates No Risk (0-24 pts). Assessment: 16:58 General: Appears in no apparent distress. uncomfortable, Behavior is calm, cooperative, jd3 appropriate for age. Pain: Complains of pain in chest Pain does not radiate. Quality of pain is described as pressure, Pain began gradually, Is intermittent. Neuro: Level of Consciousness is awake, alert, obeys commands, Oriented to person, place, time, situation. Cardiovascular: Heart tones present Capillary refill < 3 seconds Patient's skin is warm and dry. Rhythm is irregular. Respiratory: Reports shortness of breath at rest Airway is patent Respiratory effort is even, unlabored, Respiratory pattern is regular, symmetrical, Breath sounds are clear bilaterally. GI: No signs and/or symptoms were reported involving the gastrointestinal system. : No signs and/or symptoms were reported regarding the genitourinary system. EENT: No signs and/or symptoms were reported regarding the EENT system. Derm: Skin is intact, Skin is dry, Skin is normal, Skin temperature is warm. Musculoskeletal: Circulation, motion, and sensation intact. Range of motion: intact in all extremities. 18:40 Reassessment: Patient appears in no apparent distress at this time. No changes from jd3 previously documented assessment. Patient and/or family updated on plan of care and expected duration. Pain level reassessed. Patient is alert, oriented x 3, equal unlabored respirations, skin warm/dry/pink. 19:51 Reassessment: Patient appears in no apparent distress at this time. Patient and/or jd3 family updated on plan of care and expected duration. Pain level reassessed. Patient is alert, oriented x 3, equal unlabored respirations, skin warm/dry/pink. awaiting admission. Vital Signs: 16:34 BP 143 / 73; Pulse 84; Resp 18 S; Temp 97.5; Pulse Ox 100% on R/A; Weight 106.59 kg ca1 (R); Height 5 ft. 7 in. (170.18 cm) (R); Pain 7/10; 18:40 BP 133 / 53; Pulse 75; Resp 18 S; Pulse Ox 96% on R/A; jd3 19:51 BP 150 / 59; Pulse 77; Resp 17 S; Pulse Ox 98% on R/A; jd3 16:34 Body Mass Index 36.81 (106.59 kg, 170.18 cm) ca1 ED Course: 16:16 Patient arrived in ED. ag5 16:16 Caridad Gonzalez is Private Physician. ag5 16:37 Triage completed. ca1 16:39 Arm band placed on right wrist. ca1 16:48 Ariadna Garcia FNP-C is [facility]. snw 16:48 Evelio Medrano MD is Attending Physician. snw 16:53 Gamal Coleman RN is Primary Nurse. jd3 16:59 Patient has correct armband on for positive identification. Placed in gown. Bed in low jd3 position. Call light in reach. Side rails up X2. Adult w/ patient. groundwater monitoring technician on. Pulse ox on. NIBP on. 17:00 Patient maintains SpO2 saturation greater than 95% on room air. jd3 17:51 XRAY Chest (1 view) In Process Unspecified. EDMS 18:57 Иван Ulloa MD is Hospitalizing Provider. snw 19:57 No provider procedures requiring assistance completed. Patient admitted, IV remains in lp1 place. Administered Medications: 18:38 Drug: fentaNYL (PF) 25 mcg Route: IVP; Site: right wrist; jd3 19:33 Drug: Aspirin Chewable Tablet 324 mg Route: PO; jd3 19:33 Drug: GI Cocktail without - (Maalox Suspension 30 ml, Lidocaine Liquid 2 % 15 jd3 ml) Route: PO; Outcome: 18:57 Decision to Hospitalize by Provider. snw 19:57 Admitted to Med/surg room 212, with chart, Report called to ROBIN Erwin lp1 20:11 Patient left the ED. jd3 20:11 Condition: stable jd3 Signatures: Dispatcher [employer] EDFL Ariadna Garcia FNP-C TIE TAPE MACHINE OPERATOR-Csnw Radha Cornelius RN RN lp1 Gamal Coleman RN RN jd3 Sonya Bailey, RN RN ca1 Duane, Carline ag5
--- NOTE | 2020-04-09 18:58 | EDPHYS ---
Physician Documentation [facility] Name: Chery Mane Age: 59 yrs Sex: Female : 1960 Arrival Date: 04/09/2020 Time: 16:16 Bed 13 Private MD: Caridad Gonzalez ED Physician Evelio Medrano HPI: 04/09 17:39 This 59 yrs old Black Female presents to ER via Ambulatory with complaints of Chest snw Pain. 17:39 Onset: The symptoms/episode began/occurred 3 day(s) ago, and became persistent. snw Associated signs and symptoms: Pertinent positives: chest pain. Modifying factors: The patient symptoms are alleviated by nothing. The patient has experienced a previous episode. It is unknown whether or not the patient has recently seen a physician. sees Len Gonzalez NP and Dr. Dodson. Historical: - Allergies: 16:39 Codeine; ca1 16:39 Sulfa (Sulfonamide Antibiotics); ca1 16:39 PENICILLINS; ca1 16:39 tramadol; ca1 - Home Meds: 16:39 Eliquis 5 mg oral tab 1 tab 2 times per day [Active]; sotalol 80 mg Oral tab 1 tab 2 ca1 times per day [Active]; atorvastatin 20 mg oral tab 1 tab once daily [Active]; - PMHx: 16:39 Hyperlipidemia; Myocardial infarction; Hypertension; CAD; ca1 - PSHx: 16:39 cardiac stent; ca1 - Immunization history:: Adult Immunizations up to date. - Social history:: Smoking status: Patient/guardian denies using tobacco, the patient reports quitting approximately 15 years ago. ROS: 17:36 Constitutional: Negative for fever, chills, and weight loss, Eyes: Negative for injury, snw pain, redness, and discharge, ENT: Negative for injury, pain, and discharge, Neck: Negative for injury, pain, and swelling, Respiratory: Negative for shortness of breath, cough, wheezing, and pleuritic chest pain, Abdomen/GI: Negative for abdominal pain, nausea, vomiting, diarrhea, and constipation, Back: Negative for injury and pain, : Negative for injury, bleeding, discharge, and swelling, MS/Extremity: Negative for injury and deformity, Skin: Negative for injury, rash, and discoloration, Neuro: Negative for headache, weakness, numbness, tingling, and seizure, Psych: Negative for depression, anxiety, suicide ideation, homicidal ideation, and hallucinations. 17:36 Cardiovascular: Positive for chest pain, of the anterior aspect of left upper chest. Exam: 17:36 Constitutional: This is a well developed, well nourished patient who is awake, alert, snw and in no acute distress. Head/Face: Normocephalic, atraumatic. Eyes: Pupils equal round and reactive to light, extra-ocular motions intact. Lids and lashes normal. Conjunctiva and sclera are non-icteric and not injected. Cornea within normal limits. Periorbital areas with no swelling, redness, or edema. ENT: Nares patent. No nasal discharge, no septal abnormalities noted. Tympanic membranes are normal and external auditory canals are clear. Oropharynx with no redness, swelling, or masses, exudates, or evidence of obstruction, uvula midline. Mucous membranes moist. Neck: Trachea midline, no thyromegaly or masses palpated, and no cervical lymphadenopathy. Supple, full range of motion without nuchal rigidity, or vertebral point tenderness. No Meningismus. Chest/axilla: Normal chest wall appearance and motion. Nontender with no deformity. No lesions are appreciated. Respiratory: Lungs have equal breath sounds bilaterally, clear to auscultation and percussion. No rales, rhonchi or wheezes noted. No increased work of breathing, no retractions or nasal flaring. Abdomen/GI: Soft, non-tender, with normal bowel sounds. No distension or tympany. No guarding or rebound. No evidence of tenderness throughout. Back: No spinal tenderness. No costovertebral tenderness. Full range of motion. Skin: Warm, dry with normal turgor. Normal color with no rashes, no lesions, and no evidence of cellulitis. MS/ Extremity: Pulses equal, no cyanosis. Neurovascular intact. Full, normal range of motion. Neuro: Awake and alert, GCS 15, oriented to person, place, time, and situation. Cranial nerves II-XII grossly intact. Motor strength 5/5 in all extremities. Sensory grossly intact. Cerebellar exam normal. Normal gait. Psych: Awake, alert, with orientation to person, place and time. Behavior, mood, and affect are within normal limits. 17:36 Cardiovascular: Rate: normal, Rhythm: regular, Pulses: no pulse deficits are appreciated, Heart sounds: murmur, systolic, grade 3 over 6, Edema: is not appreciated. 17:36 ECG was reviewed by the Attending Physician. Vital Signs: 16:34 BP 143 / 73; Pulse 84; Resp 18 S; Temp 97.5; Pulse Ox 100% on R/A; Weight 106.59 kg ca1 (R); Height 5 ft. 7 in. (170.18 cm) (R); Pain 7/10; 18:40 BP 133 / 53; Pulse 75; Resp 18 S; Pulse Ox 96% on R/A; jd3 19:51 BP 150 / 59; Pulse 77; Resp 17 S; Pulse Ox 98% on R/A; jd3 16:34 Body Mass Index 36.81 (106.59 kg, 170.18 cm) ca1 MDM: 17:24 Patient medically screened. snw 18:50 Data reviewed: vital signs, nurses notes. Counseling: I had a detailed discussion with snw the patient and/or guardian regarding: the historical points, exam findings, and any diagnostic results supporting the discharge/admit diagnosis, lab results, radiology results, the need for further work-up and treatment in the hospital. Physician consultation: Kwadwo KRUGER was called at 18:51, was contacted at 18:51, regarding admission, to the telemetry unit. 04/09 17:25 Order name: Basic Metabolic Panel; Complete Time: 18:50 snw 04/09 17:25 Order name: CBC with Diff; Complete Time: 18:12 snw 04/09 17:25 Order name: LFT's; Complete Time: 18:50 snw 04/09 17:25 Order name: Magnesium; Complete Time: 18:50 snw 04/09 17:25 Order name: NT PRO-BNP; Complete Time: 18:50 snw 04/09 17:25 Order name: PT-INR; Complete Time: 18:12 snw 04/09 16:40 Order name: EKG; Complete Time: 16:40 ca1 04/09 16:40 Order name: EKG - Nurse/Tech; Complete Time: 16:40 ca1 04/09 17:25 Order name: Troponin (emerg Dept Use Only); Complete Time: 18:50 snw 04/09 17:25 Order name: XRAY Chest (1 view); Complete Time: 18:50 snw 04/09 17:25 Order name: Cardiac monitoring; Complete Time: 18:17 snw 04/09 17:25 Order name: IV Saline Lock; Complete Time: 18:17 snw 04/09 17:25 Order name: Labs collected and sent; Complete Time: 18:17 snw 04/09 17:25 Order name: O2 Per Protocol; Complete Time: 18:17 snw 04/09 17:25 Order name: O2 Sat Monitoring; Complete Time: 18:17 snw EC:36 Rate is 83 beats/min. Rhythm is regular. QRS [place] is Normal. [place] interval is normal. QRS snw interval is normal. QT interval is normal. Clinical impression: NSR w/ Non-specific ST/T Changes. Administered Medications: 18:38 Drug: fentaNYL (PF) 25 mcg Route: IVP; Site: right wrist; jd3 19:33 Drug: Aspirin Chewable Tablet 324 mg Route: PO; jd3 19:33 Drug: GI Cocktail without - (Maalox Suspension 30 ml, Lidocaine Liquid 2 % 15 jd3 ml) Route: PO; Disposition: 04/09/20 18:57 Hospitalization ordered by Иван Ulloa for Observation. Preliminary diagnosis are Fluid overload, unspecified, Chest pain, unspecified. - Bed requested for Telemetry/MedSurg (observation). - Status is Observation. jd3 - Condition is Stable. - Problem is new. - Symptoms are unchanged. Addendum: 04/11/2020 07:06 Co-signature as Attending Physician, Evelio Medrano MD I agree with the assessment and k dr plan of care. Signatures: Dispatcher [employer] EDFL Evelio Medrano MD MD kdr Waters, Shelly, BRIM BUSTER-C BRIM BUSTER-Yvette Smart RN RN cg Gamal Coleman RN RN jd3 Sonya Bailey RN RN ca1 Corrections: (The following items were deleted from the chart) 04/09 19:25 18:57 Hospitalization Ordered by Иван Ulloa MD for Observation. Preliminary cg diagnosis is Fluid overload, unspecified; Chest pain, unspecified. Bed requested for Telemetry/MedSurg (observation). Status is Observation. Condition is Stable. Problem is new. Symptoms are unchanged. snw 20:11 19:25 04/09/2020 18:57 Hospitalization Ordered by Иван Ulloa MD for Observation. jd3 Preliminary diagnosis is Fluid overload, unspecified; Chest pain, unspecified. Bed requested for Telemetry/MedSurg (observation). Status is Observation. Condition is Stable. Problem is new. Symptoms are unchanged. cg
--- NOTE | 2020-04-09 19:28 | P.HP ---
Certification for Inpatient Patient admitted to: Observation With expected LOS: <2 Midnights Patient will require the following post-hospital care: None Practitioner: I am a practitioner with admitting privileges, knowledge of patient current condition, hospital course, and medical plan of care. Services: Services provided to patient in accordance with Admission requirements found in Title 42 Section 412.3 of the Code of Federal Regulations <JennaKwadwo - Last Filed: 04/09/20 19:25> Patient History Date of Service: 04/09/20 Primary Care Provider: Caridad Gonzalez, cardiology- Dr. Dodson Reason for admission: Chest pain History of Present Illness: 59-year-old female with history of hypertension, hyperlipidemia, paroxysmal atrial fibrillation on chronic anticoagulation therapy presents emergency department for chest pain. Patient reports the chest pain began approximately 2 days ago and has been constant. Patient describes pain as sharp or Shocky. Pain is nonradiating. Patient reports that she took 1 of her nitro tabs which did relieve the pain for approximately 5 min. Patient had admission in May 2019 with echocardiogram done showing EF of 61%. Patient was admitted and AFib RVR at that time but now is in sinus rhythm. Patient reports last heart catheterization was in 2008 and she had 1 stent placed at that time in unknown vessel. Workup in the emergency department unremarkable, troponin within normal limits, EKG without acute findings. ED provider wishes to admit patient for further evaluation and management. When I saw the patient in the emergency room she is awake, alert, orient x3. Patient is still complaining of sharp chest pain while in the emergency department, will try GI cocktail. Home medications list reviewed: Yes - Past Medical/Surgical History Diabetic: No -: MD w/ stent placement -: Hypertension -: Hyperlipidemia -: JELANI w/ Cpap use -: Paroxysmal atrial fibrillaton on Eliquis -: R ankle surgery Psychosocial/ Personal History: Patient lives at home with her and is disabled. - Family History Father -: Heart disease Notes: heart disease Sister -: Stroke Notes: stroke Brother -: Heart disease Notes: Heart attack Grand mother -: Heart disease Notes: CHF Grand father -: Stroke Notes: stroke - Social History Smoking Status: Never smoker Alcohol use: No CD- Drugs: No Caffeine use: Yes Place of Residence: Home <Kwadwo West - Last Filed: 04/09/20 19:25> Date of Service: 04/13/20 <Иван Ulloa - Last Filed: 04/13/20 13:20> Allergies tramadol Allergy (Severe, Verified 12/25/11 14:45) Nausea/Vomiting codeine [Codeine] Allergy (Verified 12/24/11 12:36) Nausea/Vomiting Sulfa (Sulfonamide Antibiotics) [Sulfa(Sulfonamide Antibiotics)] Allergy (Verified 12/24/11 12:36) Rash Home Medications: Atorvastatin Calcium [Lipitor*] 20 mg PO BEDTIME #30 tab 05/18/19 Apixaban [Eliquis] 5 mg PO DAILY 04/09/20 Sotalol HCl [Betapace*] 80 mg PO BID #60 tab 04/11/20 Review of Systems 10-point ROS is otherwise unremarkable Cardiovascular: Chest Pain, Palpitations <Kwadwo West - Last Filed: 04/09/20 19:25> Physical Examination - Physical Exam General: Alert, In no apparent distress HEENT: Atraumatic, PERRLA, Mucous membr. moist/pink Neck: Supple, 2+ carotid pulse no bruit, No LAD Respiratory: Clear to auscultation bilaterally, Normal air movement Cardiovascular: Regular rate/rhythm, Normal S1 S2 Gastrointestinal: Normal bowel sounds, No tenderness Musculoskeletal: No tenderness Integumentary: No rashes Neurological: Normal gait, Normal speech, Normal strength at 5/5 x4 extr, Normal tone, Normal affect - Studies Laboratory Data (last 24 hrs) 04/09/20 18:01: PT 18.4 H, INR 1.57 04/09/20 18:01: WBC 8.4, Hgb 13.3, Hct 40.7, Plt Count 253 04/09/20 18:01: Sodium 142, Potassium 3.7, BUN 10, Creatinine 1.03, Glucose 105, Magnesium 2.1, Total Bilirubin 0.4, AST 15, ALT 25, Alkaline Phosphatase 99 <Kwadwo West - Last Filed: 04/09/20 19:25> Assessment and Plan - Plan Assessment Chest pain rule out ACS Paroxysmal atrial fibrillation on chronic anticoagulation therapy Hypertension Hyperlipidemia Plan Chest pain rule out ACS: Cardiology consult in place, will trend troponins. Nitro as needed, continue sotalol, Eliquis. Monitor on telemetry. Appreciate further input from cardiology. Paroxysmal atrial fibrillation on chronic anticoagulation therapy: Continue Eliquis, monitor on telemetry. Hypertension: Home medication continued, sotalol. Hyperlipidemia: Continued atorvastatin. Discharge Plan: Home Plan to discharge in: 24 Hours - Advance Directives Does patient have a Living Will: No Does patient have a Durable POA for Healthcare: No - Code Status/Comfort Care Code Status Assessed: Yes (Patient is full code) Critical Care: No Time Spent Managing Pts Care (In Minutes): 55 <Kwadwo West - Last Filed: 04/09/20 19:25> Physician Review Additional Text: Plan of care discussed with Kwadwo West, and I agree with the management plan as noted above. <Иван Ulloa - Last Filed: 04/13/20 13:20>
[2020-04-09] MEDS ORDERED: ASPIRIN 81 MG CHEWABLE TABLET ONE (19:35)
[2020-04-09] MEDS ORDERED: LIDOCAINE VISCOUS 2% SOLN 15 ML UDC ONE (19:35)
[2020-04-09] MEDS ORDERED: MAGNE/ALUM HYDROXD 30 ML UCUP ONE (19:35)
[2020-04-09] MEDS ORDERED: ONDANSETRON 4 MG/2 ML VIAL IV PRN (20:11)
[2020-04-09] MEDS ORDERED: NITROGLYCERIN 0.4 MG/TAB SL PRN (20:11)
[2020-04-09] MEDS ORDERED: ACETAMINOPHEN 500 MG TAB PO PRN (20:11)
[2020-04-09 20:25] VITALS: BMI 36.0
[2020-04-09] MEDS ORDERED: ATORVASTATIN 40 MG TAB PO SCH (21:00)
[2020-04-09] MEDS ORDERED: APIXABAN 5 MG TABLET PO SCH (21:00)
[2020-04-10] MEDS: SOTALOL HCL 80 MG TAB PO SCH ×2 (06:03→17:53)
[2020-04-10] MEDS: PANTOPRAZOLE 40MG TABLET PO SCH (06:03)
[2020-04-10 06:46] LABS: Absolute Lymphocytes (CBC) 1.8 K/uL (0.7-4.9); Basophils % 0.5 % (0-1.3); Hematocrit 39.1 % (36.0-45.0); Lymphocytes % 28.1 % (15.3-44.8); MPV 8.8 fL (7.6-11.3); RBC Red Blood Cell Count 4.71 M/uL (3.86-4.86)
[2020-04-10 07:06] LABS: Potassium 3.7 mmol/L (3.5-5.1); Thyroid Stimulating Hormone 2.04 uIU/mL (0.360-3.740)
[2020-04-10] MEDS: ASPIRIN EC 81 MG TAB PO SCH (07:56)
[2020-04-10] MEDS ORDERED: APIXABAN 5 MG TABLET PO SCH (09:00)
--- NOTE | 2020-04-10 09:18 | P.PN ---
Subjective Date of Service: 04/10/20 Primary Care Provider: Caridad Gonzlaez, cardiology- Dr. Dodson Chief Complaint: Chest pain Subjective: Improving (Slight improvement in chest pain, continues with a mild heaviness in her central chest No shortness of breath at this time, no palpitations) Review of Systems 10-point ROS is otherwise unremarkable Physical Examination - Vital Signs Temperature: 97.0 F Blood Pressure: 113/57 Pulse: 70 Respirations: 17 Pulse Ox (%): 91 - Physical Exam General: Alert, In no apparent distress, Oriented x3 HEENT: Mucous membr. moist/pink Neck: Supple, JVD not distended Respiratory: Clear to auscultation bilaterally, Normal air movement Cardiovascular: Regular rate/rhythm, Normal S1 S2 Gastrointestinal: Soft and benign, Non-distended, No tenderness Musculoskeletal: No tenderness Integumentary: No rashes Neurological: Normal speech, Normal affect - Studies Laboratory Data (last 24 hrs) 04/09/20 18:01: PT 18.4 H, INR 1.57 04/09/20 18:01: WBC 8.4, Hgb 13.3, Hct 40.7, Plt Count 253 04/09/20 18:01: Sodium 142, Potassium 3.7, BUN 10, Creatinine 1.03, Glucose 105, Magnesium 2.1, Total Bilirubin 0.4, AST 15, ALT 25, Alkaline Phosphatase 99 Assessment & Plan Physician Review Additional Text: Chest pain rule out ACS Paroxysmal atrial fibrillation on chronic anticoagulation therapy Hypertension Hyperlipidemia Plan Chest pain, rule out ACS -troponins are negative, continues with some mild heaviness -patient reports prior cardiac catheterization, and believes a stent was placed -normal sinus rhythm on telemetry -continue sotalol; Eliquis held for catheterization tomorrow -cardiology consulted, patient will have cardiac catheterization tomorrow Paroxysmal atrial fibrillation on chronic anticoagulation therapy: Eliquis, monitor on telemetry. Hypertension: -Home medication continued, sotalol. Hyperlipidemia: Continue home atorvastatin. Dispo: pending cardiac cath tomorrow, anticipate dc home in 24-48hrs Time Spent Managing Pts Care (In Minutes): 35
[2020-04-10] MEDS ORDERED: INFLUENZA VACCINE (for 3y+) 0.5 ML DOSE IMVAC ONE (11:00)
[2020-04-10] MEDS ORDERED: ATORVASTATIN 20 MG TAB PO SCH (21:00)
[2020-04-11 04:37] LABS: Hematocrit 39.4 % (36.0-45.0); MPV 9.2 fL (7.6-11.3); RBC Red Blood Cell Count 4.78 M/uL (3.86-4.86)
[2020-04-11 04:42] LABS: Protime INR 1.31
[2020-04-11 04:56] LABS: Potassium 3.9 mmol/L (3.5-5.1)
[2020-04-11] MEDS: SOTALOL HCL 80 MG TAB PO SCH ×2 (05:53→17:23)
[2020-04-11] MEDS: PANTOPRAZOLE 40MG TABLET PO SCH (05:53)
[2020-04-11] MEDS: ASPIRIN EC 81 MG TAB PO SCH (05:53)
[2020-04-11] MEDS ORDERED: HEPA 1000U/500MLS 2,000 UNIT/1,000 ML BAG IV ONE (06:56)
[2020-04-11] MEDS ORDERED: NA CHLORIDE 0.9% 500 ML ONE (08:07)
--- NOTE | 2020-04-11 09:20 | CON ---
Date of Consultation: 04/09/2020 Reason For Consultation: Chest pain, unstable angina. History Of Present Illness: Ms. Mane is a 59-year-old woman who has a history of atrial fibrillati on, coronary artery disease, hypertension, and dyslipidemia. She came in with substernal chest press ure on exertion radiating to the shoulder with some nausea, diaphoresis, shortness of breath. She de nied any PND, orthopnea, pedal edema, palpitation, or syncope. Her symptoms are exertional. Past Medical History: As stated above. Allergies: PENICILLIN, SULFA, CODEINE, AND TRAMADOL. Social History: Negative. Family History: Negative. Review of Systems: Negative. Medications: At home include sotalol, Eliquis, aspirin, and Lipitor. Physical Examination: Vital Signs: Stable. She was afebrile. HEENT: Negative. Neck: Supple. No bruit. Chest: Clear to auscultation and percussion. Cardiac: Exam revealed a regular rhythm and rate. No murmurs, gallops, or rubs. Abdomen: Benign. Extremities: Revealed no clubbing, cyanosis, or edema. Skin: Dry and intact. Neurological: She was nonfocal. Pulses were present distally bilaterally. Diagnostic Data: Her EKG showed LVH. She had a normal echocardiogram in 2019. She had a heart cath eterization approximately 10 years ago showing minimal coronary artery disease. Chest x-ray showed m ild congestive heart failure. Impression And Plan: 1.Ms. Mane is a 59-year-old with classic symptoms for coronary artery disease and had mild coronar y artery disease 10 years ago. Her symptoms are consistent with unstable angina. I think we need to continue her aspirin and Lipitor. I think we need to hold her Eliquis. Continue on sotalol. Plan for heart catheterization early next week. Patient understands the risk and the benefits of the proc edure and she agrees to proceed. 2.Atrial fibrillation and sinus rhythm, on sotalol and Eliquis. 3.Dyslipidemia, on Lipitor. 4.Hypertension, well controlled. NB/MODL Voice ID: [id number] Report ID: [id number]
--- NOTE | 2020-04-11 10:22 | PN ---
Date of Progress Note: 04/10/2020 Subjective: Ms. Mane had come in on 04/09/2020 and was seen on for dyslipidemia, atrial fibrillation, history of coronary artery disease, hypertension, and unstable angina. Her Eliquis waldron s been held. Overnight, she remains in sinus rhythm and does not have any chest pain. Her chest x-r ay has showed mild congestive heart failure. She has been diuresed. She is not having any shortness of breath. She has a normal creatinine. Last catheterization was about 10 years ago with mild abbie nary artery disease and now with unstable angina. Plan: Plan is for heart catheterization on 04/11/2020. We will see what that shows before we make a ny further decisions. CECY Voice ID: [id number] Report ID: [id number]
[2020-04-11] MEDS ORDERED: HEPARIN 5000 UNIT/ML 1 ML VIAL ONE (10:47)
[2020-04-11] MEDS ORDERED: MIDAZOLAM HCL 2 MG/2 ML INJ ONE (10:47)
[2020-04-11] MEDS ORDERED: FENTANYL CITR 100 MCG/2 ML ONE (10:47)
[2020-04-11] MEDS ORDERED: NITROGLYCERIN 100 MCG/ML SYR (for cath lab use only) IV ONE (10:48)
[2020-04-11] MEDS ORDERED: ATROPINE SULF 1 MG/10 ML SYR IV ONE (10:48)
[2020-04-11] MEDS ORDERED: NICARDIPINE HCL 25 MG/10 ML IV ONE (10:48)
[2020-04-11] MEDS ORDERED: ONDANSETRON 4 MG/2 ML VIAL ONE (12:01)
[2020-04-11 12:44] VITALS: O2SAT 99
[2020-04-11 17:16] VITALS: BP 130/61; TEMP 97
--- NOTE | 2020-04-11 21:23 | P.DS ---
Admission Date: 04/09/20 Discharge Date: 04/11/20 Primary Care Provider: Caridad Gonzalez, cardiology- Dr. Dodson Disposition: ROUTINE DISCHARGE Discharge Condition: GOOD Reason for Admission: Chest pain Consultations: Cardiology - Dr. Dodson, Dr. Moran Procedures: CXR (04/09): Mild insterstitial pulmonary edema. The heart is moderately enlarged in size. No displaced fractures. Cardiac Cath (04/11): RCA: 40-50%, LAD: 30%, Diag 40%. No intervention done. Full cath report unavailable at time of discharge. Problem List Chest pain rule out ACS CAD s/p stent Paroxysmal atrial fibrillation on chronic anticoagulation therapy Hypertension Hyperlipidemia Brief History of Present Illness: 59yo F, PMH: HTN, HLD, P. Afib on eliquis, CAD s/p stent who presented to ED due to 2 days of constant chest pain, described as sharp or "shocky" and nondradiation. Patient reports that she took 1 of her nitro tabs which did relieve the pain for approximately 5 min. Workup in the emergency department unremarkable, troponin within normal limits, EKG without acute findings. Hospital Course: Patient was admitted for further evaluation, ACS rule out. Her troponins remained negative. Cardiology was consulted and decided to take patient for cardiac catheterization given her history and continued chest pain She underwent cardiac catheterization as noted above. She was discharged home to / with Cardiology as an outpatient where she will likely be scheduled for FFR. She is to continue her home medications. Vital Signs/Physical Exam: Temp Pulse Resp BP Pulse Ox 97.0 F 54 17 130/61 93 04/11/20 16:00 04/11/20 16:00 04/11/20 16:00 04/11/20 16:00 04/11/20 16:00 General: Alert, In no apparent distress, Obese HEENT: Mucous membr. moist/pink Neck: JVD not distended, No LAD Respiratory: Clear to auscultation bilaterally, Normal air movement Cardiovascular: No edema, Regular rate/rhythm, Normal S1 S2 Gastrointestinal: Normal bowel sounds, Soft and benign, No tenderness Musculoskeletal: No erythema, No tenderness Integumentary: No rashes Neurological: Normal speech, Normal affect Laboratory Data at Discharge: WBC 8.0 K/uL (4.3-10.9) D 04/11/20 03:46 Hgb 13.0 g/dL (12.0-15.0) 04/11/20 03:46 Hct 39.4 % (36.0-45.0) 04/11/20 03:46 Plt Count 228 K/uL (152-406) 04/11/20 03:46 PT 15.4 SECONDS (9.5-12.5) H 04/11/20 03:46 INR 1.31 04/11/20 03:46 Sodium 141 mmol/L (136-145) 04/11/20 03:46 Potassium 3.9 mmol/L (3.5-5.1) 04/11/20 03:46 BUN 11 mg/dL (7-18) 04/11/20 03:46 Creatinine 0.94 mg/dL (0.55-1.3) 04/11/20 03:46 Glucose 89 mg/dL (74-106) 04/11/20 03:46 Magnesium 2.1 mg/dL (1.8-2.4) 04/09/20 18:01 Total Bilirubin 0.4 mg/dL (0.2-1.0) 04/09/20 18:01 AST 15 U/L (15-37) 04/09/20 18:01 ALT 25 U/L (12-78) 04/09/20 18:01 Alkaline Phosphatase 99 U/L (45-117) 04/09/20 18:01 Troponin I < 0.02 ng/mL (0.0-0.045) 04/10/20 06:24 Triglycerides 62 mg/dL (<150) 04/10/20 06:24 Cholesterol 166 mg/dL (<200) 04/10/20 06:24 HDL Cholesterol 55 mg/dL (40-60) 04/10/20 06:24 Cholesterol/HDL Ratio 3.02 04/10/20 06:24 Home Medications: Atorvastatin Calcium [Lipitor*] 20 mg PO BEDTIME #30 tab 05/18/19 Apixaban [Eliquis] 5 mg PO DAILY 04/09/20 Sotalol HCl [Betapace*] 80 mg PO BID #60 tab 04/11/20 Patient Discharge Instructions: Follow up with PCP within 1 week. Follow up with Dr. Dodson in ~2 weeks. Resume home medications. Diet: AHA Activity: Ad yaima Followup: Miguel Dodson MD [ACTIVE - CAN ADMIT] - Time spent managing pt's care (in minutes): 35
--- NOTE | 2020-04-12 00:59 | OP ---
Date of Procedure: 04/11/2020 Surgeon: HALEIGH NIEVES Procedure Performed: Selective coronary angiogram. Indication: Unstable angina. Access: Right radial artery 6-Prydeinig closed with TR band. Anesthesia: Total sedation time was 20 minutes. Complications: None. Bleeding: Less than 5 mL. Description Of Procedure: After risks and benefits and alternatives were explained to the patient ag armando to procedure and signed informed consent and then the patient was brought into the cardiac jacek terization laboratory, prepped and draped in usual sterile fashion, and used fentanyl and Versed in i ncremental doses to achieve adequate moderate sedation. Then, we proceeded with a pediatric micropun cture kit to access the right radial artery and placed a 6-Prydeinig slender sheath, then we took a 5-Fr ench [place] catheter into the aortic root, engaged the left main coronary artery, took standard views, and then engaged the right coronary artery and took standard views and then took the catheter out an d the sheath was removed and placed TR band with good hemostasis. Findings: 1.Left main is normal. 2.LAD proximal and mid normal and has 30% to 40% stenosis in the distal portion. 3.D1 has mid 40%. 4.LCX small with no disease. 5.RCA large dominant vessel with 40% to 50% mid section disease. Conclusion: Moderate coronary artery disease. Recommendation: FFR of the RCA and the LAD. SR/MODL Voice ID: [id number] Report ID: [id number]
== END 2020-04-11 18:48 | disposition home or self-care (01) ==
LOC: ER 16:15 → ERHOLD 19:41 → 2ND 20:05
PROVIDERS: ADMIT Hospitalist; ATTEND Hospitalist
DX: I25.10 Atherosclerotic heart disease of native coronary artery without angina pectoris (principal); Z95.5 Presence of coronary angioplasty implant and graft; I48.0 Paroxysmal atrial fibrillation; Z79.01 Long term (current) use of anticoagulants; E78.5 Hyperlipidemia, unspecified; R07.9 Chest pain, unspecified; I11.0 Hypertensive heart disease with heart failure; I50.9 Heart failure, unspecified; G47.33 Obstructive sleep apnea (adult) (pediatric); I25.2 Old myocardial infarction; Z20.828 Contact with and (suspected) exposure to other viral communicable diseases
CPT/HCPCS: 93005; 85025 ×2; 80048 ×3; 36415 ×3; 83735; 85610 ×2; 80061; 80076; 84443; 85027; 84484 ×3; 84439; 83880; 71045; 93454; 96374; 99285; U0002; C1893; J1644 ×2; J2250; J3010 ×2; G0378 ×5; J7040; J2405

== ENCOUNTER 2020-07-16 10:05 | Emergency (ER) | payer OTHER ==
[2020-07-16 10:49] LABS: Protime INR 1.63
[2020-07-16 10:51] LABS: Absolute Lymphocytes (CBC) 1.6 K/uL (0.7-4.9); Basophils % 1.3 % (0-1.3); Hematocrit 40.9 % (36.0-45.0); Lymphocytes % 17.8 % (15.3-44.8); RBC Red Blood Cell Count 5.02 M/uL (3.86-4.86)
--- NOTE | 2020-07-16 11:00 | RAD REPORT ---
EXAM DESCRIPTION: CT - Head Brain Wo Cont - 07/16/2020 10:51 am CLINICAL HISTORY: DIZZINESS, headache, near syncope, hypertension history COMPARISON: No comparisons TECHNIQUE: Axial 5 mm thick images of the head were obtained without IV contrast. All CT scans are performed using dose optimization technique as appropriate and may include automated exposure control or mA/KV adjustment according to patient size. FINDINGS: No intracranial hemorrhage, mass, edema or shift of mid-line structures. No acute infarcti on changes seen. No abnormal extra-axial fluid collections. Ventricles are normal. Mastoid air cells and visualized portions of the paranasal sinuses are clear. No acute bony findings. IMPRESSION: Negative non-contrast CT head examination.
[2020-07-16 11:04] LABS: ALT/SGPT 19 U/L (12-78); AST/SGOT 15 U/L (15-37); Albumin 3.6 g/dL (3.4-5.0); Alkaline Phosphatase 100 U/L (45-117); BUN Blood Urea Nitrogen 10 mg/dL (7-18); Bicarbonate 31 mmol/L (21-32); Bilirubin Direct < 0.1 mg/dL (0-0.2); Bilirubin Total 0.5 mg/dL (0.2-1.0); Glucose Level 96 mg/dL (74-106); Magnesium 2.1 mg/dL (1.8-2.4); NT PRO-BNP 82 pg/mL (<125); Potassium 3.8 mmol/L (3.5-5.1); Protein, Total 8.5 g/dL (6.4-8.2); Sodium Level 140 mmol/L (136-145); Troponin (Emerg Dept Use Only) < 0.02 ng/mL (0.0-0.045)
[2020-07-16] MEDS ORDERED: MECLIZINE HCL 12.5 MG TAB ONE (11:10)
[2020-07-16] MEDS ORDERED: ONDANSETRON 4 MG/2 ML VIAL ONE (11:10)
[2020-07-16] MEDS ORDERED: NA CHLORIDE 0.9% 500 ML ONE (11:10)
--- NOTE | 2020-07-16 12:07 | RAD REPORT ---
EXAM DESCRIPTION: CT - Neck Angio - 07/16/2020 11:52 am CLINICAL HISTORY: dizziness, weakness, stroke-like symptoms TECHNIQUE: During dynamic enhancement using nonionic IV contrast, axial 2 mm thick images of the nec k were obtained. Sagittal and axial reconstruction images were generated using MIP technique and revi ewed. All CT scans are performed using dose optimization technique as appropriate and may include automated exposure control or mA/KV adjustment according to patient size. COMPARISON: CT head same date FINDINGS: No aneurysm or vascular malformation identified. No carotid or vertebral dissection. Aortic arch is bovine configuration variant. Aortic and great vessel origin calcifications are presen t without significant luminal narrowing. Vertebral artery origins are unremarkable. No vasculitis fin dings. Carotid bulb atherosclerotic changes are present bilaterally. No significant degree of luminal narrowing is seen. Left vertebral artery is the slightly more dominant vessel has a normal variant. No atherosclerotic change or luminal narrowing. No dissection or acute vascular finding. IMPRESSION: Negative CT angio neck examination for acute or significant finding.
--- NOTE | 2020-07-16 12:10 | RAD REPORT ---
EXAM DESCRIPTION: CT - Head angio - 07/16/2020 11:52 am CLINICAL HISTORY: DIZZINESS, weakness, stroke-like symptoms TECHNIQUE: During dynamic enhancement using nonionic IV contrast, axial 1 millimeter thick images of the head were obtained. Sagittal and axial reconstruction images were generated using MIP technique and reviewed. All CT scans are performed using dose optimization technique as appropriate and may include automated exposure control or mA/KV adjustment according to patient size. COMPARISON: CT head same date, CT angio neck same date FINDINGS: No aneurysm or vascular malformation identified. Major venous sinuses are patent. No stenosis, named branch occlusion, vasculitis or other significant vascular finding identifiable. A therosclerotic calcifications are present in the cavernous portion of each internal carotid artery wi thout significant luminal narrowing. A large right posterior communicating artery is present and norm al variant. Small left posterior communicating artery is seen. Anterior communicating artery is also present. IMPRESSION: Atherosclerotic calcifications present in the cavernous portion of each internal caroti d artery. No significant luminal narrowing. CT angio head examination is otherwise without significant finding.
--- NOTE | 2020-07-16 12:39 | RAD REPORT ---
EXAM DESCRIPTION: RAD - Chest Single View - 07/16/2020 11:26 am CLINICAL HISTORY: dizziness, shortness of breath COMPARISON: Portable April 2020 TECHNIQUE: AP portable chest image was obtained 07/16/2020 11:26 am . FINDINGS: No peripheral mass or consolidation seen. Under penetrated technique and large body habitu s further accentuate inherent limitations portable imaging. Heart size is prominent. Central vasculat ure also prominent. No measurable pleural effusion and no pneumothorax. No acute bony abnormality see n. No acute aortic findings suspected. IMPRESSION: No focal mass or consolidation. Mild failure or volume overload suspected.
--- NOTE | 2020-07-16 12:50 | ER ---
Nurse's Notes [facility] Name: Chery Mane Age: 60 yrs Sex: Female : 1960 Arrival Date: 07/16/2020 Time: 10:07 Bed 19 Private MD: Caridad Gonzalez Diagnosis: Dizziness and giddiness Presentation: 07/16 10:16 Chief complaint: Patient states: Dizziness/lightheaded started yesterday, woke at 0800 jl7 with minor GOETZ that's feeling better now. Reports when walking feels like walking downhill. Coronavirus screen: Client denies travel out of the [place] in the last 14 days. At this time, the client does not indicate any symptoms associated with coronavirus-19. Ebola Screen: No symptoms or risks identified at this time. Initial Sepsis Screen: Does the patient meet any 2 criteria? No. Patient's initial sepsis screen is negative. Does the patient have a suspected source of infection? No. Patient's initial sepsis screen is negative. Risk Assessment: Do you want to hurt yourself or someone else? Patient reports no desire to harm self or others. Onset of symptoms was July 15, 2020. Care prior to arrival: None. Transition of care: patient was not received from another setting of care. 10:16 Method Of Arrival: Wheelchair [facility] 10:16 Acuity: JOHANN 2 jl7 Triage Assessment: 10:20 Headache History: The patient has had previous headaches and this one is similar to jl7 previous episodes. General: Appears in no apparent distress. uncomfortable, Behavior is calm, cooperative, appropriate for age. Pain: Complains of pain in GOETZ Pain currently is 3 out of 10 on a pain scale. Pain began 2 hours ago. Also complains of no other associated symptoms. Neuro: Level of Consciousness is awake, alert, obeys commands, Oriented to person, place, time, situation. Historical: - Allergies: 10:20 Codeine; jl7 10:20 PENICILLINS; jl7 10:20 Sulfa (Sulfonamide Antibiotics); jl7 10:20 tramadol; jl7 - Home Meds: 10:20 atorvastatin 20 mg Oral tab 1 tab once daily [Active]; Eliquis 5 mg Oral tab 1 tab jl7 [Active]; sotalol 80 mg Oral tab 1 tab 2 times per day [Active]; - PMHx: 10:20 CAD; Hyperlipidemia; Hypertension; Myocardial infarction; jl7 - PSHx: 10:20 cardiac stent; jl7 - Immunization history:: Adult Immunizations not up to date. - Social history:: Smoking status: Patient denies any tobacco usage or history of. Screenin:20 Abuse screen: Denies threats or abuse. Denies injuries from another. Nutritional ca1 screening: No deficits noted. Tuberculosis screening: No symptoms or risk factors identified. Fall Risk IV access (20 points). Assessment: 10:20 General: Appears in no apparent distress. comfortable, Behavior is calm, cooperative, ca1 appropriate for age. Pain: Complains of pain in forehead Pain does not radiate. Pain currently is 2 out of 10 on a pain scale. Pain began 1 day ago. Is continuous. Neuro: Level of Consciousness is awake, alert, obeys commands, Oriented to person, place, time, situation, Reports dizziness, since yesterday headache frontal area, since yesterday. Cardiovascular: Heart tones S1 S2 present Capillary refill < 3 seconds Patient's skin is warm and dry. Rhythm is sinus rhythm. Respiratory: Airway is patent Respiratory effort is even, unlabored, Respiratory pattern is regular, symmetrical, Breath sounds are clear bilaterally. GI: Abdomen is round non-distended, Bowel sounds present X 4 quads. Abd is soft and non tender X 4 quads. : No signs and/or symptoms were reported regarding the genitourinary system. EENT: No signs and/or symptoms were reported regarding the EENT system. Derm: Skin is intact, is healthy with good turgor, Skin is pink, warm \T\ dry. Musculoskeletal: Circulation, motion, and sensation intact. Capillary refill < 3 seconds. 10:50 Reassessment: Pt in CT at this time. ca1 11:00 Reassessment: Pt back from CT. ca1 12:03 Reassessment: Patient appears in no apparent distress at this time. Patient and/or ca1 family updated on plan of care and expected duration. Pain level reassessed. Patient is alert, oriented x 3, equal unlabored respirations, skin warm/dry/pink. 13:01 Reassessment: Patient appears in no apparent distress at this time. Patient and/or rb3 family updated on plan of care and expected duration. Pain level reassessed. Patient is alert, oriented x 3, equal unlabored respirations, skin warm/dry/pink. Vital Signs: 10:16 BP 179 / 88; Pulse 74; Resp 17; Temp 97.2; Pulse Ox 98% ; Weight 104.33 kg; Height 5 jl7 ft. 8 in. (172.72 cm); Pain 3/10; 11:00 BP 156 / 75; Pulse 68; Resp 15 S; Pulse Ox 95% on R/A; ca1 11:15 BP 156 / 73 Supine; Pulse 66; jb1 11:15 BP 159 / 75 Sitting; Pulse 64; jb1 11:15 BP 153 / 80 Standing; Pulse 71; jb1 12:15 BP 146 / 76; Pulse 64; Resp 18; Pulse Ox 93% ; rb3 13:00 BP 162 / 76; Pulse 67; Resp 15; Pulse Ox 95% ; rb3 10:16 Body Mass Index 34.97 (104.33 kg, 172.72 cm) jl7 ED Course: 10:07 Patient arrived in ED. ag5 10:08 Caridad Gonzalez is Private Physician. ag5 10:15 Sonya Bailey, RN is Primary Nurse. ca1 10:15 Charanjit Valenzuela PA is PHCP. cp 10:15 Alexander Ulloa MD is Attending Physician. cp 10:18 Triage completed. jl7 10:20 Arm band placed on right wrist. jl7 10:20 Patient has correct armband on for positive identification. Placed in gown. Bed in low ca1 position. Call light in reach. Side rails up X2. athletic monitor on. Pulse ox on. NIBP on. Door closed. Noise minimized. Lights dimmed. Warm blanket given. 10:38 Initial lab(s) drawn, by hi, sent to lab. Inserted saline lock: 20 gauge in right ca1 antecubital area, using aseptic technique. Blood collected. 10:51 CT Head Brain wo Cont In Process Unspecified. EDMS 11:26 XRAY Chest (1 view) In Process Unspecified. EDMS 11:52 CT Head Angio In Process Unspecified. EDMS 11:53 CT Neck Angio In Process Unspecified. EDMS 12:50 Caridad Gonzalez is Referral Physician. cp 13:11 No provider procedures requiring assistance completed. IV discontinued, intact, rb3 bleeding controlled, No redness/swelling at site. Pressure dressing applied. Administered Medications: 10:55 Drug: NS 0.9% 500 ml Route: IV; Rate: bolus; Site: right antecubital; ca1 11:30 Follow up: Response: No adverse reaction; IV Status: Completed infusion; IV Intake: ca1 500ml 10:56 Drug: Zofran (Ondansetron) 4 mg Route: IVP; Site: right antecubital; ca1 12:00 Follow up: Response: No adverse reaction; Nausea is decreased ca1 11:00 Drug: Meclizine 25 mg Route: PO; ca1 12:00 Follow up: Response: No adverse reaction; Marked relief of symptoms ca1 Intake: 11:30 IV: 500ml; Total: 500ml. ca1 Outcome: 12:50 Discharge ordered by MD. cp 13:11 Discharged to home via wheelchair, with family. rb3 13:11 Condition: stable 13:11 Discharge instructions given to patient, Instructed on discharge instructions, follow up and referral plans. medication usage, Demonstrated understanding of instructions, follow-up care, medications, Prescriptions given X 2. 13:12 Patient left the ED. rb3 Signatures: Dispatcher [employer] EDMS Carter Burrell1 Charanjit Valenzuela PA PA cp Leal, Jahala RN RN jl7 Sonya Bailey RN RN ca1 Carline Zepeda Cathy Lopez, RN RN rb3
--- NOTE | 2020-07-16 12:50 | EDPHYS ---
Physician Documentation [facility] Name: Chery Mane Age: 60 yrs Sex: Female : 1960 Arrival Date: 07/16/2020 Time: 10:07 Bed 19 Private MD: Caridad Gonzalez ED Physician Alexander Ulloa HPI: 07/16 10:50 This 60 yrs old Black Female presents to ER via Wheelchair with complaints of cp Dizziness, Headache. 10:50 The patient presents with unsteady. Onset: The symptoms/episode began/occurred last cp night. Associated signs and symptoms: Pertinent positives: headache, nausea. Patient's baseline: Neuro: alert and fully oriented, Motor: no deficits, Ambulation: walks without assistance, Speech: normal. 10:50 Severity of symptoms: in the emergency department the symptoms are unchanged. cp 10:50 Modifying factors: the symptoms are aggravated by walking. Patient's describes symptoms cp as "walking downhill", unsteady. Historical: - Allergies: 10:20 Codeine; jl7 10:20 PENICILLINS; jl7 10:20 Sulfa (Sulfonamide Antibiotics); jl7 10:20 tramadol; jl7 - Home Meds: 10:20 atorvastatin 20 mg Oral tab 1 tab once daily [Active]; Eliquis 5 mg Oral tab 1 tab jl7 [Active]; sotalol 80 mg Oral tab 1 tab 2 times per day [Active]; - PMHx: 10:20 CAD; Hyperlipidemia; Hypertension; Myocardial infarction; jl7 - PSHx: 10:20 cardiac stent; jl7 - Immunization history:: Adult Immunizations not up to date. - Social history:: Smoking status: Patient denies any tobacco usage or history of. ROS: 10:51 Constitutional: Negative for body aches, chills, fever, poor PO intake. cp 10:51 Eyes: Negative for injury, pain, redness, and discharge. cp 10:51 Neck: Negative for pain with movement, pain at rest, stiffness. 10:51 Cardiovascular: Negative for chest pain, palpitations. 10:51 Respiratory: Negative for cough, shortness of breath, wheezing. 10:51 Abdomen/GI: Positive for nausea, Negative for abdominal pain, vomiting, diarrhea, constipation, black/tarry stool, rectal bleeding. 10:51 Neuro: Positive for dizziness, headache, Negative for altered mental status, syncope, weakness. 10:51 All other systems are negative. Exam: 10:51 ECG was reviewed by the Attending Physician. cp 10:55 Head/Face: Normocephalic, atraumatic. cp 10:55 Constitutional: The patient appears in no acute distress, alert, awake, non-diaphoretic, non-toxic, well developed, well nourished. 10:55 Eyes: Periorbital structures: appear normal, Pupils: equal, round, and reactive to cp light and accomodation, Extraocular movements: intact throughout, Conjunctiva: normal, no exudate, no injection, Sclera: no appreciated abnormality, Lids and lashes: appear normal, bilaterally. 10:55 ENT: External ear(s): are unremarkable, Ear canal(s): are normal, clear, TM's: dullness, bilaterally, Nose: is normal, Mouth: Lips: moist, Oral mucosa: moist, Posterior pharynx: Airway: no evidence of obstruction, patent. 10:55 Neck: ROM/movement: is normal, is supple, without pain, no range of motions limitations. 10:55 Chest/axilla: Inspection: normal. 10:55 Cardiovascular: Rate: normal, Rhythm: regular, Edema: is not appreciated, JVD: is not appreciated. 10:55 Respiratory: the patient does not display signs of respiratory distress, Respirations: normal, no use of accessory muscles, no retractions, labored breathing, is not present, Breath sounds: are clear throughout, no decreased breath sounds. 10:55 Abdomen/GI: Inspection: abdomen appears normal, Palpation: abdomen is soft and non-tender, in all quadrants, involuntary guarding, is not appreciated. 10:55 Back: pain, is absent, ROM is normal. 10:55 Neuro: Orientation: to person, place \\T\\ time. Mentation: is normal, Cerebellar function: Romberg testing is negative, normal finger to nose testing, heel to barrett testing is normal, Motor: moves all fours, strength is normal, Sensation: is normal. Vital Signs: 10:16 BP 179 / 88; Pulse 74; Resp 17; Temp 97.2; Pulse Ox 98% ; Weight 104.33 kg; Height 5 jl7 ft. 8 in. (172.72 cm); Pain 3/10; 11:00 BP 156 / 75; Pulse 68; Resp 15 S; Pulse Ox 95% on R/A; ca1 11:15 BP 156 / 73 Supine; Pulse 66; jb1 11:15 BP 159 / 75 Sitting; Pulse 64; jb1 11:15 BP 153 / 80 Standing; Pulse 71; jb1 12:15 BP 146 / 76; Pulse 64; Resp 18; Pulse Ox 93% ; rb3 13:00 BP 162 / 76; Pulse 67; Resp 15; Pulse Ox 95% ; rb3 10:16 Body Mass Index 34.97 (104.33 kg, 172.72 cm) jl7 MDM: 10:19 Patient medically screened. cp 11:00 Differential diagnosis: cardiac arrhythmia, CVA, GI bleed, hypovolemia, idiopathic cp dizziness, TIA, vertigo. 12:50 Data reviewed: vital signs, nurses notes, lab test result(s), EKG, radiologic studies, cp CT scan, plain films, I have discussed the patient's presentation/case with the attending Emergency Department Physician; and as a result, I will discharge patient. 12:50 Test interpretation: by ED physician or midlevel provider: ECG. Counseling: I had a cp detailed discussion with the patient and/or guardian regarding: the historical points, exam findings, and any diagnostic results supporting the discharge/admit diagnosis, the presence of at least one elevated blood pressure reading (>120/80) during this emergency department visit, lab results, radiology results, the need for outpatient follow up, a family practitioner, to return to the emergency department if symptoms worsen or persist or if there are any questions or concerns that arise at home. Response to treatment: VSS. Patient reports symptoms improved. Will discharge to home for continued monitoring. 07/16 10:26 Order name: Basic Metabolic Panel; Complete Time: 11:17 cp 07/16 12:42 Interpretation: Normal except: GFR 78. cp 07/16 10:26 Order name: CBC with Diff; Complete Time: 11:17 cp 07/16 10:26 Order name: LFT's; Complete Time: 11:17 cp 07/16 10:26 Order name: Magnesium; Complete Time: 11:17 cp 07/16 10:26 Order name: NT PRO-BNP; Complete Time: 11: cp 07/16 10:26 Order name: PT-INR; Complete Time: 11:17 cp 07/16 10:26 Order name: CT Head Brain wo Cont; Complete Time: 11:17 cp 07/16 10:26 Order name: Troponin (emerg Dept Use Only); Complete Time: 11:17 cp 07/16 10:26 Order name: XRAY Chest (1 view); Complete Time: 12:41 cp 07/16 11:19 Order name: CT Head Angio; Complete Time: 12:39 cp 07/16 11:19 Order name: CT Neck Angio; Complete Time: 12:39 cp 07/16 12:40 Interpretation: Report reviewed. 07/16 10:26 Order name: EKG; Complete Time: 10:27 cp 07/16 10:26 Order name: Cardiac monitoring; Complete Time: 10:47 cp 07/16 10:26 Order name: EKG - Nurse/Tech; Complete Time: 10:47 cp 07/16 10:26 Order name: IV Saline Lock; Complete Time: 10:47 cp 07/16 10:26 Order name: Labs collected and sent; Complete Time: 10:47 cp 07/16 10:26 Order name: O2 Per Protocol; Complete Time: 10:47 cp 07/16 10:26 Order name: O2 Sat Monitoring; Complete Time: 10:47 cp EC:51 Rate is 64 beats/min. Rhythm is regular. NC interval is normal. QRS interval is normal. cp QT interval is normal. T waves are Inverted in lead aVR. Interpreted by me. Reviewed by me. Administered Medications: 10:55 Drug: NS 0.9% 500 ml Route: IV; Rate: bolus; Site: right antecubital; ca1 11:30 Follow up: Response: No adverse reaction; IV Status: Completed infusion; IV Intake: ca1 500ml 10:56 Drug: Zofran (Ondansetron) 4 mg Route: IVP; Site: right antecubital; ca1 12:00 Follow up: Response: No adverse reaction; Nausea is decreased ca1 11:00 Drug: Meclizine 25 mg Route: PO; ca1 12:00 Follow up: Response: No adverse reaction; Marked relief of symptoms ca1 Disposition: 14:15 Co-signature as Attending Physician, Alexander Ulloa MD. rn Disposition: 07/16/20 12:50 Discharged to Home. Impression: Dizziness and giddiness. - Condition is Stable. - Discharge Instructions: Dizziness. - Prescriptions for Meclizine 25 mg Oral Tablet - take 1 tablet by ORAL route every 8 hours As needed; 30 tablet. Zofran 4 mg Oral Tablet - take 1 tablet by ORAL route every 12 hours As needed; 20 tablet. - Medication Reconciliation Form, Thank You Letter, Antibiotic Education, Prescription Opioid Use form. - Follow up: Caridad Gonzalez; When: 2 - 3 days; Reason: Recheck today's complaints. - Problem is new. - Symptoms have improved. Signatures: Dispatcher [employer] EDMS Alexander Ulloa MD MD rn Charanjit Valenzuela PA PA cp Leal, Jahala RN RN jl7 Sonya Bailey RN RN ca1 Cathy Fleming RN RN rb3 Corrections: (The following items were deleted from the chart) 13:12 12:50 07/16/2020 12:50 Discharged to Home. Impression: Dizziness and giddiness. rb3 Condition is Stable. Forms are Medication Reconciliation Form, Thank You Letter, Antibiotic Education, Prescription Opioid Use. Follow up: Caridad Gonzalez; When: 2 - 3 days; Reason: Recheck today's complaints. Problem is new. Symptoms have improved. cp
[2020-07-16 13:16] VITALS: TEMP 97.2
[2020-07-16 13:21] VITALS: BP 162/76; O2SAT 95
--- NOTE | 2020-07-17 07:26 | EKG ---
Test Date: 2020-07-16 Test Time: 10:43:36 Biomass Technician: NICHOLAS MEASUREMENT RESULTS: Intervals: Rate: 64 MD: 140 QRSD: 80 QT: 442 QTc: 455 Sharples: P: 57 MD: 140 QRS: 55 T: 31 INTERPRETIVE STATEMENTS: Normal sinus rhythm Normal ECG Compared to ECG 04/09/2020 16:41:07 No significant changes Electronically Signed On 07-17-20 07:24:08 LOG STACKER OPERATOR by Miguel Dodson
== END 2020-07-16 13:12 | disposition home or self-care (01) ==
LOC: ER 10:05
DX: R42 Dizziness and giddiness (principal); R51.9 Headache, unspecified; I25.10 Atherosclerotic heart disease of native coronary artery without angina pectoris; E78.5 Hyperlipidemia, unspecified; I10 Essential (primary) hypertension; I25.2 Old myocardial infarction; Z95.5 Presence of coronary angioplasty implant and graft
CPT/HCPCS: 96361; 93005; 85025; 80048; 36415; 83735; 85610; 80076; 84484; 83880; 70450; 70496; 70498; 71045; 96374; 99284; Q9967; J7040; J2405

== ENCOUNTER 2020-10-04 21:05 | Emergency (ER) | payer OTHER ==
[2020-10-04] MEDS ORDERED: ACETAMINOPHEN 500 MG TAB ONE (23:24)
[2020-10-04 23:48] LABS: SARS-COV-2 RT PCR POSITIVE (NEGATIVE)
[2020-10-05] MEDS ORDERED: NA CHLORIDE 0.9% 500 ML ONE (00:12)
[2020-10-05 00:34] LABS: Absolute Lymphocytes (CBC) 0.6 K/uL (0.7-4.9); Basophils % 0.5 % (0-1.3); Hematocrit 41.1 % (36.0-45.0); Lymphocytes % 13.1 % (15.3-44.8); MPV 9.1 fL (7.6-11.3); RBC Red Blood Cell Count 5.05 M/uL (3.86-4.86)
[2020-10-05 00:41] LABS: ALT/SGPT 36 U/L (12-78); AST/SGOT 29 U/L (15-37); Albumin 3.4 g/dL (3.4-5.0); Alkaline Phosphatase 86 U/L (45-117); BUN Blood Urea Nitrogen 8 mg/dL (7-18); Bicarbonate 28 mmol/L (21-32); Bilirubin Direct 0.1 mg/dL (0-0.2); Bilirubin Total 0.5 mg/dL (0.2-1.0); Glucose Level 95 mg/dL (74-106); Lipase 53 U/L (73-393); Potassium 3.6 mmol/L (3.5-5.1); Protein, Total 8.2 g/dL (6.4-8.2); Sodium Level 136 mmol/L (136-145)
--- NOTE | 2020-10-05 01:56 | ER ---
Nurse's Notes [facility] Name: Chery Mane Age: 60 yrs Sex: Female : 1960 Arrival Date: 10/04/2020 Time: 21:13 Bed 5 Private MD: Diagnosis: Coronavirus infection, unspecified Presentation: 10/04 21:27 Chief complaint: Patient states: L abd pain, fever, body aches, fatigue, weakness for 1 ll1 week. No appetite. Coronavirus screen: Client denies travel out of the [place] in the last 14 days. diarrhea, fatigue, fever, nausea, Client presents with at least one sign or symptom that may indicate coronavirus-19. Standard/surgical mask placed on the client. Ebola Screen: Patient denies travel to an Ebola-affected area in the 21 days before illness onset. Initial Sepsis Screen: Does the patient meet any 2 criteria? HR > 90 bpm. No. Patient's initial sepsis screen is negative. Does the patient have a suspected source of infection? Yes: Acute abdominal pain. Risk Assessment: Do you want to hurt yourself or someone else? Patient reports no desire to harm self or others. Onset of symptoms was September 26, 2020. 21:27 Method Of Arrival: Wheelchair ll1 21:27 Acuity: JOHANN 3 ll1 Historical: - Allergies: 21:30 Codeine; ll1 21:30 Sulfa (Sulfonamide Antibiotics); ll1 21:30 tramadol; ll1 - PMHx: 21:30 CAD; Hyperlipidemia; Hypertension; Myocardial infarction; ll1 - PSHx: 21:30 cardiac stent; ll1 - Immunization history:: Flu vaccine is not up to date. - Social history:: Smoking status: Patient denies any tobacco usage or history of. Screenin:13 Abuse screen: Denies threats or abuse. Nutritional screening: No deficits noted. ea Tuberculosis screening: No symptoms or risk factors identified. Fall Risk None identified. Assessment: 23:12 General: Appears in no apparent distress. Behavior is calm, cooperative, appropriate ea for age. Pain: Denies pain. Neuro: Level of Consciousness is awake, alert, obeys commands, Oriented to person, place, time, situation. Cardiovascular: Patient's skin is warm and dry. Respiratory: Airway is patent Respiratory effort is even, unlabored, Respiratory pattern is regular, symmetrical. Derm: Skin is pink, warm \T\ dry. 10/05 01:04 Reassessment: Patient and/or family updated on plan of care and expected duration. Pain ea level reassessed. Patient is alert, oriented x 3, equal unlabored respirations, skin warm/dry/pink. Pt returned from CT. 02:06 Reassessment: Patient and/or family updated on plan of care and expected duration. Pain ea level reassessed. Patient is alert, oriented x 3, equal unlabored respirations, skin warm/dry/pink. discharge instruction given to patient verbalized the understanding of instruction. Pt left ED ambulatory tolerating well. Vital Signs: 10/04 21:27 BP 166 / 81; Pulse 106; Resp 20; Temp 101.0; Pulse Ox 92% on R/A; Weight 102.06 kg; ll1 Height 5 ft. 8 in. (172.72 cm); Pain 8/10; 10/05 02:15 BP 144 / 84; Pulse 90; Resp 18; Temp 99.0; Pulse Ox 90% ; ea 10/04 21:27 Body Mass Index 34.21 (102.06 kg, 172.72 cm) ll1 ED Course: 10/04 21:13 Patient arrived in ED. ag3 21:29 Triage completed. ll1 21:30 Arm band placed on. ll1 22:53 Nathen Linn, ZACKARY is PHCP. pm1 22:53 Alexander Ulloa MD is Attending Physician. pm1 23:05 Yaima Estrella, ROBIN is Primary Nurse. ea 23:13 Patient has correct armband on for positive identification. Bed in low position. Call ea light in reach. Side rails up X2. 10/05 00:08 Inserted saline lock: 20 gauge in right forearm, using aseptic technique. Blood ea collected. 00:30 Chest Single View XRAY In Process Unspecified. EDMS 01:08 CT Abd/Pelvis - IV Contrast Only In Process Unspecified. EDMS 02:15 No provider procedures requiring assistance completed. IV discontinued, intact, ea bleeding controlled, No redness/swelling at site. Pressure dressing applied. Administered Medications: 10/04 23:08 Drug: Tylenol 1000 mg Route: PO; ea 10/05 02:20 Follow up: Response: No adverse reaction ea 00:06 Drug: NS 0.9% 500 ml Route: IV; Rate: bolus; Site: right forearm; ea Outcome: 01:56 Discharge ordered by . pm1 02:20 Patient left the ED. ea 02:21 Discharged to ea 02:21 Condition: stable 02:21 Discharge instructions given to patient, Instructed on discharge instructions, follow up and referral plans. Signatures: Dispatcher [employer] EDNathen Dennison NP BILL OF MATERIALS CLERK pm1 Yaima Estrella RN RN Sonia Lopez 3 Helene Mosley RN RN ll1
--- NOTE | 2020-10-05 01:56 | EDPHYS ---
Physician Documentation [facility] Name: Chery Mane Age: 60 yrs Sex: Female : 1960 Arrival Date: 10/04/2020 Time: 21:13 Bed 5 Private MD: ED Physician Alexander Ulloa HPI: 10/04 23:44 This 60 yrs old Black Female presents to ER via Wheelchair with complaints of Fever. pm1 23:44 The patient reports fever, not measured (subjective). Onset: The symptoms/episode pm1 began/occurred 1 week(s) ago. Modifying factors: The patient has had contact with sick significant other, who has similar symptoms. Associated signs and symptoms: Pertinent positives: diarrhea, left flank pain and left lower quadrant pain. Body aches and fatigue, Pertinent negatives: cough, shortness of breath, sore throat. Severity of symptoms: in the emergency department the symptoms are unchanged. The patient has not experienced similar symptoms in the past. The patient has not recently seen a physician. Historical: - Allergies: 21:30 Codeine; ll1 21:30 Sulfa (Sulfonamide Antibiotics); ll1 21:30 tramadol; ll1 - PMHx: 21:30 CAD; Hyperlipidemia; Hypertension; Myocardial infarction; ll1 - PSHx: 21:30 cardiac stent; ll1 - Immunization history:: Flu vaccine is not up to date. - Social history:: Smoking status: Patient denies any tobacco usage or history of. ROS: 23:44 Eyes: Negative for injury, pain, redness, and discharge, ENT: Negative for injury, pm1 pain, and discharge, Neck: Negative for injury, pain, and swelling, Cardiovascular: Negative for chest pain, palpitations, and edema, Respiratory: Negative for shortness of breath, cough, wheezing, and pleuritic chest pain. 23:44 : Negative for injury, bleeding, discharge, and swelling, MS/Extremity: Negative for injury and deformity, Skin: Negative for injury, rash, and discoloration, Neuro: Negative for headache, weakness, numbness, tingling, and seizure. 23:44 Constitutional: Positive for body aches, fatigue, fever, poor PO intake. 23:44 Abdomen/GI: Positive for abdominal pain, diarrhea, of the left lower quadrant, Negative for nausea and vomiting. 23:44 Back: Positive for flank pain, on the left. Exam: 23:44 Constitutional: This is a well developed, well nourished patient who is awake, alert, pm1 and in no acute distress. Head/Face: Normocephalic, atraumatic. 23:44 Respiratory: Lungs have equal breath sounds bilaterally, clear to auscultation and percussion. No rales, rhonchi or wheezes noted. No increased work of breathing, no retractions or nasal flaring. 23:44 Skin: Warm, dry with normal turgor. Normal color with no rashes, no lesions, and no evidence of cellulitis. MS/ Extremity: Pulses equal, no cyanosis. Neurovascular intact. Full, normal range of motion. 23:44 Cardiovascular: Exam negative for acute changes, Rate: tachycardic, actual rate is 105 bpm, Rhythm: regular, Pulses: no pulse deficits are appreciated. 23:44 Abdomen/GI: Inspection: obese Palpation: soft, in all quadrants, mild abdominal tenderness, in the left lower quadrant. 23:44 Back: pain, is absent, CVA tenderness, is absent, vertebral tenderness, is not appreciated. 23:44 Neuro: Exam negative for acute changes, Orientation: is normal, Mentation: is normal, Motor: is normal, moves all fours. Vital Signs: 21:27 BP 166 / 81; Pulse 106; Resp 20; Temp 101.0; Pulse Ox 92% on R/A; Weight 102.06 kg; ll1 Height 5 ft. 8 in. (172.72 cm); Pain 8/10; 10/05 02:15 BP 144 / 84; Pulse 90; Resp 18; Temp 99.0; Pulse Ox 90% ; ea 10/04 21:27 Body Mass Index 34.21 (102.06 kg, 172.72 cm) ll1 MDM: 10/04 23:14 Patient medically screened. pm1 10/05 01:38 Data reviewed: vital signs. pm1 01:50 ED course: Chest X-ray negative per radiologist. pm1 01:56 Counseling: I had a detailed discussion with the patient and/or guardian regarding: the pm1 historical points, exam findings, and any diagnostic results supporting the discharge/admit diagnosis, lab results, radiology results, the need for outpatient follow up, to return to the emergency department if symptoms worsen or persist or if there are any questions or concerns that arise at home. 10/04 23:44 Order name: Basic Metabolic Panel pm1 10/04 23:44 Order name: CBC with Diff pm1 10/04 23:44 Order name: Hepatic Function pm1 10/04 23:44 Order name: Lipase pm1 10/04 23:44 Order name: Urine Microscopic Only pm1 10/04 23:45 Order name: Basic Metabolic Panel; Complete Time: 00:56 EDMS 10/04 23:45 Order name: CBC with Automated Diff; Complete Time: 00:56 EDMS 10/04 23:45 Order name: Liver (Hepatic) Function; Complete Time: 00:56 EDMS 10/04 23:45 Order name: Lipase; Complete Time: 00:56 EDMS 10/04 23:49 Order name: COVID-19/FLU A+B; Complete Time: 00:02 EDMS 10/05 01:58 Order name: Urine Dipstick--Ancillary (enter results) ds4 10/04 23:44 Order name: IV Saline Lock; Complete Time: 00:07 pm1 10/04 23:44 Order name: Labs collected and sent; Complete Time: 00:07 pm1 10/04 23:44 Order name: Urine Dipstick-Ancillary (obtain specimen); Complete Time: 01:56 pm1 10/04 23:44 Order name: CT Abd/Pelvis - IV Contrast Only pm10/05 00:05 Order name: Chest Single View XRAY pm1 10/05 01:58 Order name: Urine Dipstick-Ancillary EDMS Administered Medications: 10/04 23:08 Drug: Tylenol 1000 mg Route: PO; ea 10/05 02:20 Follow up: Response: No adverse reaction 00:06 Drug: NS 0.9% 500 ml Route: IV; Rate: bolus; Site: right forearm; ea Disposition: 03:53 Co-signature as Attending Physician, Alexander Ulloa MD. rn Disposition: 10/05/20 01:56 Discharged to Home. Impression: Coronavirus infection, unspecified. - Condition is Stable. - Discharge Instructions: COVID-19. - Medication Reconciliation Form, Thank You Letter, Antibiotic Education, Prescription Opioid Use form. - Follow up: Emergency Department; When: As needed; Reason: Worsening of condition. Follow up: Private Physician; When: 2 - 3 days; Reason: Recheck today's complaints, Continuance of care, Re-evaluation by your physician. - Problem is new. - Symptoms have improved. Signatures: Dispatcher [employer] [facility] Alexander Ulloa MD MD rn Marinas, Patrick, AMUSEMENT EQUIPMENT OPERATOR AMUSEMENT EQUIPMENT OPERATOR pm1 Yaima Estrella, RN Helene Archer ea RN RN ll1 Corrections: (The following items were deleted from the chart) 10/04 22:32 22:06 CORONAVIRUS+MR.LAB.BRZ ordered. [facility] :32 22:06 Influenza Screen (A \T\ B)+BA.LAB.BRZ ordered. [facility] 10/05 01:51 01:50 ED course: Chest X-ray negative. pm1 pm1 02:20 01:56 10/05/2020 01:56 Discharged to Home. Impression: Coronavirus infection, ea unspecified. Condition is Stable. Forms are Medication Reconciliation Form, Thank You Letter, Antibiotic Education, Prescription Opioid Use. Follow up: Emergency Department; When: As needed; Reason: Worsening of condition. Follow up: Private Physician; When: 2 - 3 days; Reason: Recheck today's complaints, Continuance of care, Re-evaluation by your physician. Problem is new. Symptoms have improved. pm1
[2020-10-05 02:44] LABS: Urine Blood TRACE (Negative); Urine Glucose NEGATIVE (Negative); Urine Protein 1+ (Negative)
[2020-10-05 04:51] VITALS: BP 166/81; TEMP 101; O2SAT 92
--- NOTE | 2020-10-05 09:36 | RAD REPORT ---
EXAM DESCRIPTION: Abdomen Pelvis W Contrast 10/05/2020 1:20 AM CDT CLINICAL HISTORY: 60 years, Female, FLANK PAIN COMPARISON: None TECHNIQUE: Contrast-enhanced images of the abdomen and pelvis were performed utilizing 5 mm slice th ickness at 5 mm interval reconstruction from the lung bases to the ischial tuberosities after the adm inistration of IV contrast. No dosing amount was provided for interpretation. In addition delayed por alvaro venous phase bolus performed. In addition multiplanar reformats in the coronal and sagittal plane were obtained and reviewed. An individualized dose optimization technique, Automated Exposure Control, was utilized for the perfo rmed procedure. FINDINGS: The lung bases demonstrate to be clear. The liver demonstrate slight decreased attenuation perhaps ingesting mild fatty infiltration. Otherwi se the liver, gallbladder, pancreas, spleen and adrenal glands demonstrate to be unremarkable, no foc al lesions are noted. The kidneys demonstrate normal uptake of contrast media. No nephrolithiasis and/or hydronephrosis w as identified. Grossly the unopacified stomach, small bowel and large bowel demonstrate to be within normal limits. There is no evidence for bowel dilatation/or free air. The appendix was not visualized although no significant inflammatory changes are seen within the right lower quadrant. There is very minimal dive rticulosis within the sigmoid colon. The urinary bladder demonstrate to be unremarkable. The uterus demonstrate the presence of the part ially calcified fundal fibroid on axial image 69/95. The aorta demonstrate atherosclerotic disease extending into the aortic bifurcation. There is no retroperitoneal lymphadenopathy. There is no solomon dence for ascites and/or significant abnormal fluid collections. The rest of the soft tissue and bony structures are within normal limits. IMPRESSION: Mild fatty infiltration of the liver. Uterine fibroid. Atherosclerotic disease of the aorta. No evidence for acute intra-abdominal process. Electronically signed by: Carter East MD 10/05/2020 1:24 AM CDT Due to temporary technical issues with the PACS/Fluency reporting system, reports are being signed by the in house radiologist without review as a courtesy to ensure prompt reporting. The interpreting r adiologist is fully responsible for the content of the report.
--- NOTE | 2020-10-05 09:39 | RAD REPORT ---
EXAM DESCRIPTION: Chest Single View 10/05/2020 12:43 AM CDT CLINICAL HISTORY: 60 years, Female, FEVER COMPARISON: None. FINDINGS: Single view of the chest was obtained portable. No prior films are available for compariso n. The cardiomediastinal silhouette demonstrate to be unremarkable. For heart is not enlarged. The thoracic aorta demonstrate minimal intimal calcification. Costophrenic angles are sharp. No areas o f consolidation or masses are seen. The minimal degenerative changes right AC joint. IMPRESSION: NO ACUTE CARDIOPULMONARY DISEASE SEEN. Electronically signed by: Carter East MD 10/05/2020 12:43 AM CDT Due to temporary technical issues with the PACS/Fluency reporting system, reports are being signed by the in house radiologist without review as a courtesy to ensure prompt reporting. The interpreting r adiologist is fully responsible for the content of the report.
== END 2020-10-05 02:20 | disposition home or self-care (01) ==
LOC: ER 21:05
DX: U07.1 COVID-19 (principal); I10 Essential (primary) hypertension; Z95.818 Presence of other cardiac implants and grafts; Z88.2 Allergy status to sulfonamides; Z88.5 Allergy status to narcotic agent; Z88.6 Allergy status to analgesic agent
CPT/HCPCS: 85025; 80048; 36415; 80076; 81003; 83690; 0240U; 74177; 71045; Q9967; 99284

== ENCOUNTER 2020-10-07 22:34 | Inpatient (IN) | payer OTHER ==
[2020-10-07] MEDS ORDERED: METHYLPREDNISOLONE 125 MG INJ ONE (23:51)
[2020-10-07] MEDS ORDERED: NA CHLORIDE 0.9% 1,000 ML ONE (23:58)
[2020-10-07] MEDS ORDERED: ONDANSETRON 4 MG/2 ML VIAL ONE (23:58)
[2020-10-08 00:02] LABS: Absolute Lymphocytes (CBC) 0.5 K/uL (0.7-4.9); Basophils % 0.4 % (0-1.3); Hematocrit 42.3 % (36.0-45.0); Lymphocytes % 9.5 % (15.3-44.8); MPV 8.7 fL (7.6-11.3); RBC Red Blood Cell Count 5.13 M/uL (3.86-4.86)
[2020-10-08 00:03] LABS: Protime INR 1.58
--- NOTE | 2020-10-08 00:19 | ER ---
Nurse's Notes [facility] Name: Chery Mane Age: 60 yrs Sex: Female : 1960 Arrival Date: 10/07/2020 Time: 22:35 Bed 20 Private MD: Diagnosis: Pneumonia due to SARS-associated coronavirus;Acute respiratory failure with hypoxia Presentation: 10/07 22:36 Acuity: JOHANN 2 sg 22:36 Chief complaint: Patient states: Recently DX with COVID at last ER visit earlier this sg week, states having shortness of breath as well as having dry heaving/vomiting, and reports only able to have a "trinkle" when urinating, also states having an increase in urinary frequency. Coronavirus screen: Client presents with at least one sign or symptom that may indicate coronavirus-19. Standard/surgical mask placed on the client. Provider contacted for isolation considerations. Client reports previous positive COVID test result. Date of collection: October 04, 2020 in EMR results are located within the EHR/EMR. Staff notified of need for isolation. Ebola Screen: Patient negative for fever greater than or equal to 101.5 degrees Fahrenheit, and additional compatible Ebola Virus Disease symptoms Patient denies exposure to infectious person. Patient denies travel to an Ebola-affected area in the 21 days before illness onset. No symptoms or risks identified at this time. Initial Sepsis Screen: Does the patient meet any 2 criteria? No. Patient's initial sepsis screen is negative. Does the patient have a suspected source of infection?. Risk Assessment: Do you want to hurt yourself or someone else? Patient reports no desire to harm self or others. Onset of symptoms was October 07, 2020. Care prior to arrival: None. Transition of care: patient was not received from another setting of care. 22:36 Method Of Arrival: Wheelchair sg 22:58 Note pt placed to 4 lpm NC and o2 saturation increased to 95%. sg Historical: - Allergies: 22:43 Codeine; sg 22:43 Sulfa (Sulfonamide Antibiotics); sg 22:43 tramadol; sg - PMHx: 22:43 CAD; Hyperlipidemia; Myocardial infarction; Hypertension; sg - PSHx: 22:43 cardiac stent; sg - Immunization history:: Adult Immunizations up to date. - Social history:: Smoking status: Patient denies any tobacco usage or history of. Screenin/03 00:18 Abuse screen: Denies threats or abuse. Denies injuries from another. Nutritional mg2 screening:. Tuberculosis screening: No symptoms or risk factors identified. Fall Risk IV access (20 points). Assessment: 10/07 23:00 General: Appears in no apparent distress. comfortable, Behavior is calm, cooperative. mg2 Pain: Denies pain. Neuro: Level of Consciousness is awake, alert, obeys commands, Oriented to person, place, time, situation. Cardiovascular: Capillary refill < 3 seconds Patient's skin is warm and dry. Respiratory: Airway is patent Respiratory effort is even, unlabored, Respiratory pattern is regular, symmetrical. GI: Reports nausea, vomiting. : Reports burning with urination. EENT: No signs and/or symptoms were reported regarding the EENT system. Derm: Skin is intact, is healthy with good turgor, Skin is pink, warm \\T\\ dry. normal. Musculoskeletal: Circulation, motion, and sensation intact. Capillary refill < 3 seconds. Vital Signs: 22:36 BP 93 / 50; Pulse 78 MON; Resp 20 S; Temp 98.7(TE); Pulse Ox 86% on R/A; sg 10/08 00:34 BP 134 / 71; Pulse 81; Resp 18; Pulse Ox 100% on 3 lpm NC; mg2 01:46 BP 144 / 69; Pulse 81; Resp 18; Pulse Ox 99% on 3 lpm NC; mg2 ED Course: 10/07 22:35 Patient arrived in ED. cl3 22:36 Triage completed. sg 22:36 Arm band placed on. sg 22:38 Alexis Navarro PA is PHCP. jr8 22:38 Charanjit Crowder MD is Attending Physician. jr8 22:56 Triage completed. sg 23:15 Inserted saline lock: 20 gauge in right forearm, using aseptic technique. Blood mg2 collected. 23:39 Evens Galdamez, ROBIN is Primary Nurse. mg2 23:40 CXR XRAY In Process Unspecified. EDMS 10/08 00:17 Иван Ulloa MD is Hospitalizing Provider. jr8 00:18 Patient has correct armband on for positive identification. statistical clerk advertising on. Pulse mg2 ox on. NIBP on. Door closed. 00:18 No provider procedures requiring assistance completed. mg2 00:34 Gaines cath inserted, using sterile technique, 18 Fr., by wy, balloon inflated, urine mg2 specimen collected. Patient admitted, IV remains in place. Administered Medications: 10/07 23:39 Drug: SOLU-Medrol 125 mg Route: IVP; Site: right forearm; mg2 10/08 00:33 Follow up: Response: No adverse reaction mg2 10/07 23:45 Drug: NS 0.9% 1000 ml Route: IV; Rate: 1 bolus; Site: right forearm; mg2 23:46 Drug: Zofran (Ondansetron) 4 mg Route: IVP; Site: right forearm; mg2 Outcome: 10/08 00:18 Decision to Hospitalize by Provider. jr8 01:53 Admitted to Tele accompanied by tech, via stretcher, room 408, with oxygen, with chart, mg2 Report called to ROBIN Garcia 01:53 Condition: stable 01:53 Instructed on the need for admit, Demonstrated understanding of instructions. 01:54 Patient left the ED. mg2 Signatures: Dispatcher [employer] EDMS Luc Roberts RN RN sg Alexis Navarro PA PA jr8 Evens Galdamez RN RN mg2 Quincy Mosley cl3 Corrections: (The following items were deleted from the chart) 10/07 22:56 22:36 Acuity: JOHANN 3 sg sg 10/08 01:37 10/07 22:36 Coronavirus screen: Client presents with at least one sign or symptom that sg may indicate coronavirus-19. Standard/surgical mask placed on the client. Provider contacted for isolation considerations. Client reports previous positive COVID test result. in EMR sg
--- NOTE | 2020-10-08 00:19 | EDPHYS ---
Physician Documentation [facility] Name: Chery Mane Age: 60 yrs Sex: Female : 1960 Arrival Date: 10/07/2020 Time: 22:35 Bed 20 Private MD: ED Physician Charanjit Crowder HPI: 10/07 23:11 This 60 yrs old Black Female presents to ER via Wheelchair with complaints of COVID+, jr8 Vomiting, Urinary Problem. 23:11 Patient tested positive for COVID 19 this past Saturday. She has since felt worse and is jr8 having difficulty keeping food and liquid down and is SOB. . Historical: - Allergies: 22:43 Codeine; sg 22:43 Sulfa (Sulfonamide Antibiotics); sg 22:43 tramadol; sg - PMHx: 22:43 CAD; Hyperlipidemia; Myocardial infarction; Hypertension; sg - PSHx: 22:43 cardiac stent; sg - Immunization history:: Adult Immunizations up to date. - Social history:: Smoking status: Patient denies any tobacco usage or history of. ROS: 23:12 Cardiovascular: Negative for chest pain, palpitations, and edema, MS/Extremity: jr8 Negative for injury and deformity, Skin: Negative for injury, rash, and discoloration, Neuro: Negative for headache, weakness, numbness, tingling, and seizure. 23:12 Constitutional: Positive for body aches, fever, malaise, poor PO intake. 23:12 Respiratory: Positive for shortness of breath. 23:12 Abdomen/GI: Positive for nausea, vomiting. 23:12 All other systems are negative. jr8 Exam: 23:12 Chest/axilla: Normal chest wall appearance and motion. Nontender with no deformity. jr8 No lesions are appreciated. Cardiovascular: Regular rate and rhythm with a normal S1 and S2. No gallops, murmurs, or rubs. Normal PMI, no JVD. No pulse deficits. Abdomen/GI: Soft, non-tender, with normal bowel sounds. No distension or tympany. No guarding or rebound. No evidence of tenderness throughout. MS/ Extremity: Pulses equal, no cyanosis. Neurovascular intact. Full, normal range of motion. Neuro: Awake and alert, GCS 15, oriented to person, place, time, and situation. Cranial nerves II-XII grossly intact. Motor strength 5/5 in all extremities. Sensory grossly intact. Cerebellar exam normal. Normal gait. 23:12 Constitutional: The patient appears alert, awake, obviously ill. 23:12 Respiratory: mild respiratory distress is noted, Respirations: tachypnea, that is mild, Breath sounds: are clear throughout. 23:12 Abdomen/GI: Inspection: abdomen appears normal, Bowel sounds: normal, Palpation: abdomen is soft and non-tender, in all quadrants. Vital Signs: 22:36 BP 93 / 50; Pulse 78 MON; Resp 20 S; Temp 98.7(TE); Pulse Ox 86% on R/A; sg 10/08 00:34 BP 134 / 71; Pulse 81; Resp 18; Pulse Ox 100% on 3 lpm NC; mg2 01:46 BP 144 / 69; Pulse 81; Resp 18; Pulse Ox 99% on 3 lpm NC; mg2 MDM: 10/07 22:38 Patient medically screened. [facility] 10/08 00:17 Data reviewed: vital signs, nurses notes, lab test result(s), EKG, radiologic studies, [facility] plain films. Data interpreted: Pulse oximetry: on room air is 86 %. Interpretation: hypoxia. Counseling: I had a detailed discussion with the patient and/or guardian regarding: the historical points, exam findings, and any diagnostic results supporting the discharge/admit diagnosis, lab results, radiology results, the need for further work-up and treatment in the hospital. 10/07 23:07 Order name: Blood Culture Adult (2) [facility] 10/07 23:07 Order name: BMP [facility] 10/07 23:07 Order name: C-Reactive Protein [facility] 10/07 23:07 Order name: CBC with Diff; Complete Time: 00:06 [facility] 10/07 23:07 Order name: D-Dimer; Complete Time: 00:06 [facility] 10/07 23:07 Order name: Ferritin; Complete Time: 00:41 [facility] 10/07 23:07 Order name: Lactate; Complete Time: 00:11 [facility] 10/07 23:07 Order name: LFT's; Complete Time: 00:41 [facility] 10/07 23:07 Order name: Procalcitonin; Complete Time: 00:52 [facility] 10/07 23:07 Order name: PT-INR; Complete Time: 00:06 [facility] 10/07 23:07 Order name: Ptt, Activated; Complete Time: 00:06 jr8 10/07 23:07 Order name: Troponin (emerg Dept Use Only); Complete Time: 00:41 jr8 10/07 23:08 Order name: Blood Culture EDTX 10/07 23:08 Order name: Basic Metabolic Panel; Complete Time: 00:41 EDMS 10/07 23:07 Order name: CXR XRAY jr8 10/07 23:07 Order name: EKG; Complete Time: 23:08 8 10/07 23:07 Order name: Cardiac monitoring; Complete Time: 23:46 jr8 10/07 23:07 Order name: Droplet/Contact Precautions; Complete Time: 23:46 8 10/07 23:07 Order name: EKG - Nurse/Tech; Complete Time: 23:46 8 10/07 23:07 Order name: Gaines; Complete Time: 00:34 jr8 10/07 23:07 Order name: IV Start; Complete Time: 23:46 8 10/07 23:07 Order name: Labs collected and sent; Complete Time: 23:46 8 10/07 23:07 Order name: O2 Per Protocol; Complete Time: 23:46 jr8 10/07 23:07 Order name: O2 Sat Monitoring; Complete Time: 23:46 8 10/07 23:07 Order name: Urine Dipstick-Ancillary (obtain specimen); Complete Time: 00:44 jr8 10/07 23:08 Order name: C-Reactive Protein; Complete Time: 00:41 EDMS 10/08 00:34 Order name: Urine Dipstick-Ancillary; Complete Time: 00:41 EDMS Administered Medications: 10/07 23:39 Drug: SOLU-Medrol 125 mg Route: IVP; Site: right forearm; mg2 10/08 00:33 Follow up: Response: No adverse reaction mg2 10/07 23:45 Drug: NS 0.9% 1000 ml Route: IV; Rate: 1 bolus; Site: right forearm; mg2 23:46 Drug: Zofran (Ondansetron) 4 mg Route: IVP; Site: right forearm; mg2 Disposition: 10/08 08:52 Co-signature as Attending Physician, Charanjit Crowder MD I agree with the assessment and kalyani plan of care. Disposition: 04/03/21 00:18 Hospitalization ordered by Иван Ulloa for Inpatient Admission. Preliminary diagnosis are Pneumonia due to SARS-associated coronavirus, Acute respiratory failure with hypoxia. - Bed requested for Telemetry/MedSurg (Inpatient). - Status is Inpatient Admission. mg2 - Condition is Fair. - Problem is new. - Symptoms have improved. Signatures: Dispatcher [employer] EDMS Luc Roberts RN RN Charanjit Crowder MD MD cha Roszak, Josh, PA PA jr8 Yvette Avina RN RN Evens Galdamez RN RN mg2 Corrections: (The following items were deleted from the chart) 01:43 00:18 Hospitalization Ordered by Иван Ulloa MD for Inpatient Admission. Preliminary cg diagnosis is Pneumonia due to SARS-associated coronavirus; Acute respiratory failure with hypoxia. Bed requested for Telemetry/MedSurg (Inpatient). Status is Inpatient Admission. Condition is Fair. Problem is new. Symptoms have improved. jr8 01:54 01:43 10/08/2020 00:18 Hospitalization Ordered by Иван Ulloa MD for Inpatient mg2 Admission. Preliminary diagnosis is Pneumonia due to SARS-associated coronavirus; Acute respiratory failure with hypoxia. Bed requested for Telemetry/MedSurg (Inpatient). Status is Inpatient Admission. Condition is Fair. Problem is new. Symptoms have improved. cg
[2020-10-08 00:35] LABS: Urine Blood Negative (Negative); Urine Glucose Negative (Negative); Urine Protein 2+ (Negative); Urine Specific Gravity 1.025 (1.005-1.030)
[2020-10-08 00:38] LABS: ALT/SGPT 38 U/L (12-78); AST/SGOT 46 U/L (15-37); Albumin 2.9 g/dL (3.4-5.0); Alkaline Phosphatase 77 U/L (45-117); BUN Blood Urea Nitrogen 9 mg/dL (7-18); Bicarbonate 29 mmol/L (21-32); Bilirubin Direct 0.1 mg/dL (0-0.2); Bilirubin Total 0.4 mg/dL (0.2-1.0); Ferritin 540.2 ng/mL (8-388); Glucose Level 104 mg/dL (74-106); Potassium 3.6 mmol/L (3.5-5.1); Protein, Total 7.7 g/dL (6.4-8.2); Sodium Level 134 mmol/L (136-145); Troponin (Emerg Dept Use Only) < 0.02 ng/mL (0.0-0.045)
[2020-10-08] MEDS ORDERED: BENZONATATE 100 MG CAP PO PRN (01:59)
[2020-10-08] MEDS ORDERED: MELATONIN 5 MG TABLET PO PRN (01:59)
[2020-10-08] MEDS ORDERED: ONDANSETRON 4 MG/2 ML VIAL IV PRN (01:59)
[2020-10-08] MEDS ORDERED: NA CHLORIDE 0.9% 1,000 ML IV SCH (02:00)
--- NOTE | 2020-10-08 02:06 | P.HP ---
Certification for Inpatient Patient admitted to: Inpatient With expected LOS: >2 Midnights Patient will require the following post-hospital care: None Practitioner: I am a practitioner with admitting privileges, knowledge of patient current condition, hospital course, and medical plan of care. Services: Services provided to patient in accordance with Admission requirements found in Title 42 Section 412.3 of the Code of Federal Regulations <Kwadwo West - Last Filed: 10/08/20 02:02> Patient History Date of Service: 10/08/20 Reason for admission: COVID pneumonia History of Present Illness: 60-year-old female with history of paroxysmal atrial fibrillation on chronic anticoagulation therapy, hypertension, hyperlipidemia presents emergency department for shortness of breath. Patient reports testing positive for Monte virus on October 04, 2020 with increasing shortness of breath, vomiting since then. Patient reports decreased urine out, nausea and shortness of breath at this time. Evaluated in the emergency department labs significant for mildly elevated D-dimer 540 CRP 132 pro calcitonin 0.18 ferritin 540 sodium 134. Chest x-ray demonstrates viral infiltrate pattern. Patient requiring nasal cannula oxygen at 2-4 L to maintain saturations greater than 90%, for this reason ED provider wishes to admit for further evaluation and management. - Past Medical/Surgical History Diabetic: No -: [place] w/ stent placement -: Hypertension -: Hyperlipidemia -: JELANI w/ Cpap use -: Paroxysmal atrial fibrillaton on Eliquis -: R ankle surgery Psychosocial/ Personal History: Patient lives at home with her and is disabled. - Family History Father -: Heart disease Notes: heart disease Sister -: Heart disease, Diabetes, Stroke Notes: stroke Brother -: Heart disease Notes: Heart attack Mother -: Heart disease, GI disease Grand mother -: Heart disease Notes: CHF Grand father -: Stroke Notes: stroke - Social History Alcohol use: No CD- Drugs: No Caffeine use: Yes <Kwadwo West - Last Filed: 10/08/20 02:02> Date of Service: 10/08/20 <Иван Ulloa - Last Filed: 10/08/20 09:26> Allergies tramadol Allergy (Severe, Verified 12/25/11 14:45) Nausea/Vomiting codeine [Codeine] Allergy (Verified 12/24/11 12:36) Nausea/Vomiting Sulfa (Sulfonamide Antibiotics) [Sulfa(Sulfonamide Antibiotics)] Allergy (Verified 12/24/11 12:36) Rash Home Medications: Atorvastatin Calcium [Lipitor*] 20 mg PO BEDTIME #30 tab 05/18/19 Apixaban [Eliquis] 5 mg PO BID 04/09/20 Sotalol HCl [Betapace*] 80 mg PO BID #60 tab 04/11/20 Fluoxetine HCl [Prozac] 40 mg PO DAILY 10/08/20 Review of Systems 10-point ROS is otherwise unremarkable General: Fever, Chills, Weakness, Malaise Respiratory: Cough, Shortness of Breath Gastrointestinal: Abdominal Pain (Mild right lower quadrant abdominal pain) Genitourinary: Other (Decreased urine output) <Kwadwo West - Last Filed: 10/08/20 02:02> Physical Examination - Physical Exam General: Alert, In no apparent distress HEENT: Atraumatic, PERRLA, Other (Mucous membranes dry), EOMI, Sclerae nonicteric Neck: Supple, 2+ carotid pulse no bruit, No LAD, Without JVD or thyroid abnormality Respiratory: Normal air movement, Diminished (Bilaterally) Cardiovascular: Regular rate/rhythm, Normal S1 S2 Capillary refill: <2 Seconds Gastrointestinal: Normal bowel sounds, No tenderness Musculoskeletal: No tenderness Integumentary: No rashes Neurological: Normal speech, Normal strength at 5/5 x4 extr, Normal tone, Normal affect - Studies Laboratory Data (last 24 hrs) 10/07/20 23:15: PT 18.3 H, INR 1.58, APTT 32.5 10/07/20 23:15: WBC 5.80 D, Hgb 13.8, Hct 42.3, Plt Count 211 10/07/20 23:15: Sodium 134 L, Potassium 3.6, BUN 9, Creatinine 0.59, Glucose 104, Total Bilirubin 0.4, AST 46 H, ALT 38, Alkaline Phosphatase 77 <Kwadwo West - Last Filed: 10/08/20 02:02> - Studies Laboratory Data (last 24 hrs) 10/07/20 23:15: PT 18.3 H, INR 1.58, APTT 32.5 10/07/20 23:15: WBC 5.80 D, Hgb 13.8, Hct 42.3, Plt Count 211 10/07/20 23:15: Sodium 134 L, Potassium 3.6, BUN 9, Creatinine 0.59, Glucose 104, Total Bilirubin 0.4, AST 46 H, ALT 38, Alkaline Phosphatase 77 <Иван Ulloa - Last Filed: 10/08/20 09:26> Assessment and Plan - Plan Assessment Hypoxia secondary to COVID pneumonia Paroxysmal atrial fibrillation on chronic anticoagulation therapy Hypertension Hyperlipidemia CAD Plan Hypoxia secondary to COVID pneumonia: Continue IV steroids, oral supplemen tations, ivermectin. Pulmonology consulted, and oxygen supplementation as needed, respiratory therapy consult in place. Daily room air saturations. Continue Eliquis for DVT prophylaxis. Patient is DNR but states that she is not yet sure if she would be okay with being intubated if her respiratory symptoms significantly worsen, stated she did discuss this with her family. Paroxysmal atrial fibrillation on chronic anticoagulation therapy: Continue Eliquis, sotalol. Monitor on tele Hypertension: Continue sotalol Hyperlipidemia: Continue atorvastatin CAD: Stable, continue home meds. Discharge Plan: Home Plan to discharge in: 48 Hours - Advance Directives Does patient have a Living Will: No Does patient have a Durable POA for Healthcare: No - Code Status/Comfort Care Code Status Assessed: Yes (DNR) Critical Care: No Time Spent Managing Pts Care (In Minutes): 55 <Kwadwo West - Last Filed: 10/08/20 02:02> - Plan Plan of care reviewed as noted above by Kwadwo West Acute hypoxemic respiratory failure secondary to COVID 19 pneumonia IV steroids, oral supplementations, ivermectin ordered Continue home Eliquis and other home medications seen later this morning, pt still hypoxic, feels slightly better continue IVF likely dc home in ~24-48hrs, will likely need home O2 <Иван Ulloa - Last Filed: 10/08/20 09:26>
[2020-10-08 03:02] VITALS: BMI 34.4
[2020-10-08] MEDS: SOTALOL HCL 80 MG TAB PO SCH ×2 (05:32→17:13)
[2020-10-08 05:46] LABS: Thyroid Stimulating Hormone 0.694 uIU/mL (0.360-3.740)
[2020-10-08] MEDS ORDERED: POTASSIUM CL SA 10 MEQ TAB PO ONE (09:00)
--- NOTE | 2020-10-08 09:30 | RAD REPORT ---
EXAM DESCRIPTION: Brando Single View10/07/2020 11:40 pm CLINICAL HISTORY: Shortness of breath COMPARISON: October 05 FINDINGS: [id number] bilateral pulmonary opacities. Heart is mildly enlarged IMPRESSION: Mild to moderate bilateral pulmonary opacities likely pneumonia
[2020-10-08] MEDS: IVERMECTIN 3 MG TABLET PO SCH (09:47)
[2020-10-08] MEDS: ASCORBIC ACID 500 MG TABLET PO SCH ×4 (09:47→20:17)
[2020-10-08] MEDS: APIXABAN 5 MG TABLET PO SCH ×2 (09:47→20:16)
[2020-10-08] MEDS: THIAMINE HCL 100 MG TABLET PO SCH (09:47)
[2020-10-08] MEDS: VITAMIN D 1000 UNIT TAB PO SCH (09:48)
[2020-10-08] MEDS: METHYLPREDNISOLONE 40 MG INJ IV SCH ×2 (09:48→20:17)
[2020-10-08] MEDS: ZINC SULFATE 220 MG CAP PO SCH (09:49)
[2020-10-08] MEDS: ACETAMINOPHEN 500 MG TAB PO PRN ×2 (10:32→20:16)
[2020-10-08] MEDS ORDERED: Remdesivir 200 MG in NA CHLORIDE 0.9% 250 ML IV ONE (12:00)
--- NOTE | 2020-10-08 12:04 | P.CNS ---
Date of Consult: 10/08/20 Reason for Consult: Monte virus pneumonia Chief Complaint: COVID pneumonia History of Present Illness: Patient is 60 years of age admitted with progressive shortness of breath she was diagnosed with monte virus in October 04 was discharged from the emergency room came back again worsening dyspnea feeling better on steroid Patient has chronic AFib on anticoagulation Allergies tramadol Allergy (Severe, Verified 12/25/11 14:45) Nausea/Vomiting codeine [Codeine] Allergy (Verified 12/24/11 12:36) Nausea/Vomiting Sulfa (Sulfonamide Antibiotics) [Sulfa(Sulfonamide Antibiotics)] Allergy (Verified 12/24/11 12:36) Rash Home Medications: Atorvastatin Calcium [Lipitor*] 20 mg PO BEDTIME #30 tab 05/18/19 Apixaban [Eliquis] 5 mg PO BID 04/09/20 Sotalol HCl [Betapace*] 80 mg PO BID #60 tab 04/11/20 Fluoxetine HCl [Prozac] 40 mg PO DAILY 10/08/20 - Past Medical/Surgical History Diabetic: No -: [place] w/ stent placement -: Hypertension -: Hyperlipidemia -: JELANI w/ Cpap use -: Paroxysmal atrial fibrillaton on Eliquis -: R ankle surgery Psychosocial/ Personal History: Patient lives at home with her and is disabled. - Family History Father Medical History: Heart disease Notes: heart disease Sister Medical History: Heart disease, Diabetes, Stroke Notes: stroke Brother Medical History: Heart disease Notes: Heart attack Mother Medical History: Heart disease, GI disease Grand mother Medical History: Heart disease Notes: CHF Grand father Medical History: Stroke Notes: stroke - Social History Smoking Status: Unknown if ever smoked Alcohol use: No CD- Drugs: No Caffeine use: Yes Place of Residence: Home Review of Systems General: Weakness Respiratory: Shortness of Breath Physical Examination Temp Pulse Resp BP Pulse Ox 97 F 76 17 118/56 L 93 10/08/20 08:00 10/08/20 08:00 10/08/20 08:00 10/08/20 08:00 10/08/20 08:00 Laboratory Data (last 24 hrs) 10/07/20 23:15: PT 18.3 H, INR 1.58, APTT 32.5 10/07/20 23:15: WBC 5.80 D, Hgb 13.8, Hct 42.3, Plt Count 211 10/07/20 23:15: Sodium 134 L, Potassium 3.6, BUN 9, Creatinine 0.59, Glucose 104, Total Bilirubin 0.4, AST 46 H, ALT 38, Alkaline Phosphatase 77 - Problems (1) Acute respiratory failure due to severe acute respiratory syndrome coronavirus 2 (SARS-CoV-2) infection Current Visit: Yes Status: Acute Plan: Patient is 60 years of age admitted with acute respiratory failure from monte virus chest x-ray shows minimal interstitial changes patient is stable on nasal cannula oxygen labs read continue with present therapy possible discharge in 1 or 2 days on oxygen continue with prednisone at discharge 20 b.i.d. for a week then 10 twice a day with me in a week anticoagulation
[2020-10-08] MEDS: ATORVASTATIN 20 MG TAB PO SCH (20:16)
[2020-10-09 05:19] LABS: Absolute Lymphocytes (CBC) 0.6 K/uL (0.7-4.9); Basophils % 0.1 % (0-1.3); Hematocrit 37.1 % (36.0-45.0); Lymphocytes % 6.7 % (15.3-44.8); MPV 8.5 fL (7.6-11.3); RBC Red Blood Cell Count 4.59 M/uL (3.86-4.86)
[2020-10-09 05:27] LABS: ALT/SGPT 33 U/L (12-78); AST/SGOT 31 U/L (15-37); Albumin 2.6 g/dL (3.4-5.0); Alkaline Phosphatase 71 U/L (45-117); BUN Blood Urea Nitrogen 10 mg/dL (7-18); Bicarbonate 32 mmol/L (21-32); Bilirubin Direct 0.1 mg/dL (0-0.2); Bilirubin Total 0.3 mg/dL (0.2-1.0); Ferritin 432.4 ng/mL (8-388); Glucose Level 121 mg/dL (74-106); Magnesium 2.4 mg/dL (1.8-2.4); Potassium 4.2 mmol/L (3.5-5.1); Protein, Total 7.4 g/dL (6.4-8.2); Sodium Level 140 mmol/L (136-145)
[2020-10-09] MEDS: SOTALOL HCL 80 MG TAB PO SCH ×2 (06:03→17:22)
[2020-10-09] MEDS: ACETAMINOPHEN 500 MG TAB PO PRN ×2 (06:07→10:29)
[2020-10-09] MEDS: APIXABAN 5 MG TABLET PO SCH ×2 (07:59→21:01)
[2020-10-09] MEDS: THIAMINE HCL 100 MG TABLET PO SCH (07:59)
[2020-10-09] MEDS: ASCORBIC ACID 500 MG TABLET PO SCH ×4 (07:59→21:02)
[2020-10-09] MEDS: ZINC SULFATE 220 MG CAP PO SCH (08:00)
[2020-10-09] MEDS: METHYLPREDNISOLONE 40 MG INJ IV SCH ×2 (08:00→21:03)
[2020-10-09] MEDS: VITAMIN D 1000 UNIT TAB PO SCH (08:00)
[2020-10-09] MEDS: Remdesivir 100 MG in NA CHLORIDE 0.9% 250 ML IV SCH (09:44)
--- NOTE | 2020-10-09 14:14 | P.PN ---
Subjective Date of Service: 10/09/20 Chief Complaint: COVID pneumonia Subjective: No new changes (feeling slightly better, minimal PO intake, very tired still, GERARD) Review of Systems 10-point ROS is otherwise unremarkable Physical Examination - Vital Signs Temperature: 97.4 F Blood Pressure: 134/61 Pulse: 67 Respirations: 18 Pulse Ox (%): 90 Assessment & Plan Physician Review Additional Text: Physical Exam General: Alert, In no apparent distress HEENT: Normal conjunctiva, sclerae anicteric Pulmonary: Diminished breath sounds bilaterally, nonlabored respirations on 2 L nasal cannula CV: Regular rate and rhythm, no murmur Abdomen: Soft, nontender, nondistended Ext: no edema, no rash Neuro: normal affect, moves all extremities Sánchez in place Problem list Acute hypoxemic respiratory failure secondary to COVID 19 pneumonia Paroxysmal atrial fibrillation on chronic anticoagulation therapy Hypertension Hyperlipidemia CAD -wean O2 as tolerated -continue steroids, oral supplementations, however my 10, room to severe -pulmonology consulted -daily room air saturations -continue home Eliquis -continue home medications for hypertension and atrial fibrillation -CRP and ferritin improving -Sánchez placed in the ED due to minimal urine output, due to poor pedal and intake, urine output has been normal since IV fluids were started. -DC sánchez today VTE: eliquis Code: DNR Dispo: anticipate dc home in ~24hrs, needs home O2 Time Spent Managing Pts Care (In Minutes): 35
[2020-10-09] MEDS: ATORVASTATIN 20 MG TAB PO SCH (21:02)
[2020-10-10 05:00] LABS: Absolute Lymphocytes (CBC) 0.7 K/uL (0.7-4.9); Basophils % 0.4 % (0-1.3); Hematocrit 36.5 % (36.0-45.0); Lymphocytes % 5.6 % (15.3-44.8); MPV 8.4 fL (7.6-11.3); RBC Red Blood Cell Count 4.52 M/uL (3.86-4.86)
[2020-10-10 05:23] LABS: ALT/SGPT 35 U/L (12-78); AST/SGOT 27 U/L (15-37); Albumin 2.7 g/dL (3.4-5.0); Alkaline Phosphatase 69 U/L (45-117); BUN Blood Urea Nitrogen 15 mg/dL (7-18); Bicarbonate 32 mmol/L (21-32); Bilirubin Direct 0.1 mg/dL (0-0.2); Bilirubin Total 0.3 mg/dL (0.2-1.0); Ferritin 387.7 ng/mL (8-388); Glucose Level 129 mg/dL (74-106); Magnesium 2.4 mg/dL (1.8-2.4); Protein, Total 7.3 g/dL (6.4-8.2); Sodium Level 140 mmol/L (136-145)
[2020-10-10] MEDS: SOTALOL HCL 80 MG TAB PO SCH ×2 (05:27→18:34)
[2020-10-10 05:33] LABS: Blood Morphology Comment NOT SEEN (NOT SEEN); Platelet Estimate ADEQ
[2020-10-10] MEDS ORDERED: METHYLPREDNISOLONE 125 MG INJ IV SCH (09:00)
[2020-10-10] MEDS: VITAMIN D 1000 UNIT TAB PO SCH (09:35)
[2020-10-10] MEDS: Remdesivir 100 MG in NA CHLORIDE 0.9% 250 ML IV SCH (09:35)
[2020-10-10] MEDS: THIAMINE HCL 100 MG TABLET PO SCH (09:36)
[2020-10-10] MEDS: ASCORBIC ACID 500 MG TABLET PO SCH ×4 (09:36→21:05)
[2020-10-10] MEDS: ZINC SULFATE 220 MG CAP PO SCH (09:36)
[2020-10-10] MEDS: APIXABAN 5 MG TABLET PO SCH ×2 (09:45→21:04)
[2020-10-10] MEDS: IVERMECTIN 3 MG TABLET PO SCH (09:46)
--- NOTE | 2020-10-10 17:19 | P.PN ---
Subjective Date of Service: 10/10/20 Chief Complaint: COVID pneumonia Subjective: No new changes (Did not feel well overnight, patient noted to be bradycardic to 39 briefly, otherwise was in the 40s for some time. Patient states she is unaware of ever being this low. Still very fatigued and dyspneic, no nausea/vomiting, no diarrhea.) Review of Systems 10-point ROS is otherwise unremarkable Physical Examination - Vital Signs Temperature: 97.9 F Blood Pressure: 152/72 Pulse: 70 Respirations: 20 Pulse Ox (%): 93 Assessment & Plan Physician Review Additional Text: Physical Exam General: Alert, In no apparent distress HEENT: Normal conjunctiva, sclerae anicteric Pulmonary: Diminished breath sounds bilaterally, nonlabored respirations on 2 L nasal cannula CV: Regular rate and rhythm, no murmur Abdomen: Soft, nontender, nondistended Ext: no edema, no rash Neuro: normal affect, moves all extremities Problem list Acute hypoxemic respiratory failure secondary to COVID 19 pneumonia Paroxysmal atrial fibrillation on chronic anticoagulation therapy Hypertension Hyperlipidemia CAD -wean O2 as tolerated -continue steroids, oral supplementations -pulmonology consulted -daily room air saturations -continue home Eliquis -continue home medications for hypertension and atrial fibrillation -Coreg initially held this morning due to bradycardia, briefly discussed with her bean picker machine operator over the phone who recommended continuation at same dose and monitor -CRP and ferritin improving -Gaines placed in the ED due to minimal urine output, due to poor p.o. intake, urine output has been normal since IV fluids were started. -Gaines discontinued on 10/09, voiding without issue, good urine output VTE: eliquis Code: DNR Dispo: anticipate dc home tomorrow, needs home oxygen, monitoring bradycardia, to get out of bed today Time Spent Managing Pts Care (In Minutes): 35
[2020-10-10] MEDS: ATORVASTATIN 20 MG TAB PO SCH (21:04)
[2020-10-10] MEDS: METHYLPREDNISOLONE 125 MG INJ IV SCH (21:05)
[2020-10-11 04:01] LABS: Absolute Lymphocytes (CBC) 0.6 K/uL (0.7-4.9); Basophils % 0.5 % (0-1.3); Hematocrit 38.3 % (36.0-45.0); Lymphocytes % 5.5 % (15.3-44.8); MPV 8.3 fL (7.6-11.3); RBC Red Blood Cell Count 4.69 M/uL (3.86-4.86)
[2020-10-11 04:47] LABS: ALT/SGPT 41 U/L (12-78); AST/SGOT 26 U/L (15-37); Albumin 2.7 g/dL (3.4-5.0); Alkaline Phosphatase 70 U/L (45-117); BUN Blood Urea Nitrogen 15 mg/dL (7-18); Bicarbonate 31 mmol/L (21-32); Bilirubin Direct 0.1 mg/dL (0-0.2); Bilirubin Total 0.4 mg/dL (0.2-1.0); Ferritin 352.9 ng/mL (8-388); Glucose Level 132 mg/dL (74-106); Magnesium 2.5 mg/dL (1.8-2.4); Potassium 4.2 mmol/L (3.5-5.1); Protein, Total 7.1 g/dL (6.4-8.2); Sodium Level 140 mmol/L (136-145)
[2020-10-11] MEDS: SOTALOL HCL 80 MG TAB PO SCH ×2 (06:00→18:22)
[2020-10-11] MEDS: ASCORBIC ACID 500 MG TABLET PO SCH ×3 (09:04→17:29)
[2020-10-11] MEDS: THIAMINE HCL 100 MG TABLET PO SCH (09:04)
[2020-10-11] MEDS: Remdesivir 100 MG in NA CHLORIDE 0.9% 250 ML IV SCH (09:04)
[2020-10-11] MEDS: APIXABAN 5 MG TABLET PO SCH (09:04)
[2020-10-11] MEDS: ZINC SULFATE 220 MG CAP PO SCH (09:04)
[2020-10-11] MEDS: ACETAMINOPHEN 500 MG TAB PO PRN (09:04)
[2020-10-11] MEDS: METHYLPREDNISOLONE 125 MG INJ IV SCH (09:04)
[2020-10-11] MEDS: VITAMIN D 1000 UNIT TAB PO SCH (09:04)
[2020-10-11 12:07] VITALS: O2SAT 93
[2020-10-11] MEDS ORDERED: SOD CHLORIDE 0.65% NASAL SPRAY NAS PRN (16:14)
[2020-10-11 16:20] VITALS: BP 168/74; TEMP 97.2
--- NOTE | 2020-10-11 17:25 | P.PN ---
Subjective Date of Service: 10/11/20 Chief Complaint: COVID pneumonia Patient states she feels better. She has tolerated 2 L oxygen by nasal cannula. Physical Examination - Vital Signs Temperature: 97.2 F Blood Pressure: 168/74 Pulse: 63 Respirations: 16 Pulse Ox (%): 92 - Physical Exam General: Alert, In no apparent distress, Oriented x3, Obese HEENT: Other (Oxygen by nasal cannula) Respiratory: Other (No labored breathing) Cardiovascular: No edema, Regular rate/rhythm Gastrointestinal: Soft and benign, Non-distended Musculoskeletal: No swelling Integumentary: No rashes Neurological: Normal strength at 5/5 x4 extr Assessment And Plan Physician Review Additional Text: Physical Exam General: Alert, In no apparent distress HEENT: Normal conjunctiva, sclerae anicteric Pulmonary: Diminished breath sounds bilaterally, nonlabored respirations on 2 L nasal cannula CV: Regular rate and rhythm, no murmur Abdomen: Soft, nontender, nondistended Ext: no edema, no rash Neuro: normal affect, moves all extremities Problem list Acute hypoxemic respiratory failure secondary to COVID 19 pneumonia Paroxysmal atrial fibrillation on chronic anticoagulation therapy Hypertension Hyperlipidemia CAD -wean O2 as tolerated -continue steroids, oral supplementations -pulmonology is following -continue Eliquis -continue home medications for hypertension and atrial fibrillation. -Gaines placed in the ED due to minimal urine output, due to poor p.o. intake, urine output has been normal since IV fluids were started. -Gaines discontinued on 10/09, voiding without issue, good urine output. -patient to complete the last dose of Remdesivir tomorrow. VTE: eliquis Code: DNR Dispo: anticipate dc home tomorrow, home oxygen arranged.
--- NOTE | 2020-10-11 18:05 | P.DS ---
Admission Date: 10/08/20 Discharge Date: 10/11/20 Disposition: ROUTINE DISCHARGE Discharge Condition: FAIR Reason for Admission: COVID pneumonia Consultations: Pulmonary-Dr. Prasad. Brief History of Present Illness: 60-year-old woman with a history of paroxysmal atrial fibrillation on Eliquis anticoagulation presented to the emergency department with a complaint of shortness of breath. Patient reports being diagnosed with COVID 19 on October 04, 2020. She received her 1st dose COVID vaccine a few days prior to the onset of the shortness of breath. Chest x-ray demonstrated mild bilateral interstitial opacities. Patient was requiring 2-4 L of oxygen by nasal cannula. She was admitted for further management. Hospital Course: Patient admitted to the medical floor and started on IV steroids, vitamins, zinc and IV Remdesivir therapy. Patient was stable on 2 L of oxygen by nasal cannula during the hospital stay. She is on Betapace for paroxysmal AFib. Patient heart rate was as low as 58 at some point but overall her heart rate was stable on the Betapace. Patient has been stable on oxygen by nasal cannula. He is discharged with home oxygen and prednisone therapy to continue treatment for the COVID pneumonia. She will follow with Dr. Prasad within 1 week. Vital Signs/Physical Exam: Temp Pulse Resp BP Pulse Ox 97.2 F 63 16 168/74 H 92 10/11/20 17:25 10/11/20 17:25 10/11/20 17:25 10/11/20 17:25 10/11/20 17:25 General: Alert, In no apparent distress, Oriented x3 Respiratory: Other (Nonlabored breathing) Cardiovascular: Regular rate/rhythm, Normal S1 S2 Gastrointestinal: Soft and benign, Non-distended Integumentary: No rashes Neurological: Normal strength at 5/5 x4 extr Laboratory Data at Discharge: WBC 11.80 K/uL (4.3-10.9) H 10/11/20 03:14 Hgb 12.5 g/dL (12.0-15.0) 10/11/20 03:14 Hct 38.3 % (36.0-45.0) 10/11/20 03:14 Plt Count 341 K/uL (152-406) 10/11/20 03:14 PT 18.3 SECONDS (9.5-12.5) H 10/07/20 23:15 INR 1.58 10/07/20 23:15 APTT 32.5 SECONDS (24.3-36.9) 10/07/20 23:15 Sodium 140 mmol/L (136-145) 10/11/20 03:14 Potassium 4.2 mmol/L (3.5-5.1) 10/11/20 03:14 BUN 15 mg/dL (7-18) 10/11/20 03:14 Creatinine 0.66 mg/dL (0.55-1.3) 10/11/20 03:14 Glucose 132 mg/dL (74-106) H 10/11/20 03:14 Magnesium 2.5 mg/dL (1.8-2.4) H 10/11/20 03:14 Total Bilirubin 0.4 mg/dL (0.2-1.0) 10/11/20 03:14 AST 26 U/L (15-37) 10/11/20 03:14 ALT 41 U/L (12-78) 10/11/20 03:14 Alkaline Phosphatase 70 U/L (45-117) 10/11/20 03:14 Troponin I < 0.02 ng/mL (0.0-0.045) 10/09/20 18:52 Home Medications: Atorvastatin Calcium [Lipitor*] 20 mg PO BEDTIME #30 tab 05/18/19 Apixaban [Eliquis] 5 mg PO BID 04/09/20 Sotalol HCl [Betapace*] 80 mg PO BID #60 tab 04/11/20 Fluoxetine HCl [Prozac] 40 mg PO DAILY 10/08/20 Ascorbic Acid [Vitamin C*] 500 mg PO QID #120 tablet 10/11/20 Benzonatate [Tessalon Perle*] 100 mg PO TID PRN #30 cap 10/11/20 Cholecalciferol (Vitamin D3) [Vitamin D 1000 Iu Tab*] 4,000 unit PO DAILY #120 tab 10/11/20 Melatonin 5 mg PO BEDTIME PRN PRN #30 tablet 10/11/20 Thiamine HCl [Vitamin B-1*] 200 mg PO DAILY #30 tablet 10/11/20 Zinc Sulfate [Zinc Sulfate*] 220 mg PO DAILY #30 cap 10/11/20 predniSONE [Deltasone] 20 mg PO BID #21 tab 10/11/20 New Medications: Melatonin 5 mg PO BEDTIME PRN PRN #30 tablet PRN Reason: Insomnia predniSONE [Deltasone] 20 mg PO BID #21 tab Benzonatate [Tessalon Perle*] 100 mg PO TID PRN #30 cap PRN Reason: Cough Thiamine HCl [Vitamin B-1*] 200 mg PO DAILY #30 tablet Ascorbic Acid [Vitamin C*] 500 mg PO QID #120 tablet Cholecalciferol (Vitamin D3) [Vitamin D 1000 Iu Tab*] 4,000 unit PO DAILY #120 tab Zinc Sulfate [Zinc Sulfate*] 220 mg PO DAILY #30 cap Diet: AHA Activity: Ad yaima Followup: Ricardo Prasad MD [ACTIVE - CAN ADMIT] - 1 Week NONE,NONE [Primary Care Provider] - 1-2 Weeks Time spent managing pt's care (in minutes): 36
[2020-10-12 11:39] LABS: Urine Blood Trace-intact (Negative); Urine Glucose Negative (Negative); Urine Protein 1+ (Negative)
== END 2020-10-11 17:00 | disposition home or self-care (01) | DRG 177 ==
LOC: ER 22:34 → ERHOLD 10-08 01:26 → 4TH 10-08 01:46
PROVIDERS: ADMIT Hospitalist; ATTEND Internal Medicine
PROC: XW033E5 Introduction of Remdesivir Anti-infective into Peripheral Vein, Percutaneous Approach, New Technology Group 5 (ICD-10-PCS; principal; 2020-10-08)
DX: U07.1 COVID-19 (principal); J12.82 Pneumonia due to coronavirus disease 2019; J96.01 Acute respiratory failure with hypoxia; I48.0 Paroxysmal atrial fibrillation; I25.10 Atherosclerotic heart disease of native coronary artery without angina pectoris; I10 Essential (primary) hypertension; I25.2 Old myocardial infarction; E78.5 Hyperlipidemia, unspecified; E66.9 Obesity, unspecified; Z68.34 Body mass index [BMI] 34.0-34.9, adult; Z66 Do not resuscitate; Z88.5 Allergy status to narcotic agent; Z88.1 Allergy status to other antibiotic agents; Z95.5 Presence of coronary angioplasty implant and graft; Z79.01 Long term (current) use of anticoagulants; Z79.899 Other long term (current) drug therapy; Z79.52 Long term (current) use of systemic steroids
CPT/HCPCS: 0240U; 36415; 51702; 71045; 74177; 80048; 80053; 80076; 81003; 82248; 82728; 83605; 83690; 83735; 84145; 84439; 84443; 84484; 85025; 85379; 85610; 85730; 86140; 87040; 93005; 96374; 96375; 99284; 99285; J2405; J2920; J2930; J7030; J7050; Q9967

== ENCOUNTER 2021-12-06 02:41 | Observation (INO) | payer OTHER ==
[2021-12-06] MEDS ORDERED: METOPROLOL TARTRATE 5 MG/5 ML INJ IV ONE (03:28)
[2021-12-06 03:29] LABS: Absolute Lymphocytes (CBC) 2.6 K/uL (0.7-4.9); Hematocrit 46.2 % (36.0-45.0); MPV 8.7 fL (7.6-11.3); Protime INR 1.36; RBC Red Blood Cell Count 5.56 M/uL (3.86-4.86)
[2021-12-06 03:50] LABS: ALT/SGPT 23 U/L (12-78); AST/SGOT 12 U/L (15-37); Albumin 3.6 g/dL (3.4-5.0); Alkaline Phosphatase 106 U/L (45-117); BUN Blood Urea Nitrogen 11 mg/dL (7-18); Bicarbonate 28 mmol/L (21-32); Bilirubin Total 0.3 mg/dL (0.2-1.0); Glomerular Filtration Rate 62 ml/min (=/>90); Glucose Level 118 mg/dL (74-106); NT PRO-BNP 50 pg/mL (<125); Potassium 3.6 mmol/L (3.5-5.1); Protein, Total 8.3 g/dL (6.4-8.2); Sodium Level 139 mmol/L (136-145); Troponin High Sensitivity 48.8 pg/mL (<58.9)
[2021-12-06 04:04] LABS: Bilirubin Direct < 0.1 mg/dL (0-0.2)
--- NOTE | 2021-12-06 05:15 | EDPHYS ---
Physician Documentation [facility] Name: Chery Mane Age: 61 yrs Sex: Female : 1960 Arrival Date: 12/06/2021 Time: 02:42 Bed 2 Private MD: ED Physician Alexandr Méndez HPI: 12/06 03:20 This 61 yrs old Black Female presents to ER via Wheelchair with complaints of Chest mh7 Pain > 30 y/o. 03:20 The patient or guardian reports chest pain that is located primarily in the substernal mh7 area. Onset: today. The pain radiates to the left arm. Associated signs and symptoms: Pertinent positives: shortness of breath, Pertinent negatives: abdominal pain, cough, diaphoresis, dizziness, headache, lower extremity pain, lower extremity swelling, lightheadedness, nausea, near syncope, palpitations, recent travel, syncope, vomiting. The chest pain is described as a pressure. Duration: The patient or guardian reports multiple episodes, that are intermittent, that wax and wane, with no pattern. Modifying factors: The symptoms are alleviated by nothing. the symptoms are aggravated by nothing. Severity of pain: At its worst the pain was moderate today, in the emergency department the pain has improved moderately. Historical: - Allergies: 02:56 Codeine; vc1 02:56 Sulfa (Sulfonamide Antibiotics); vc1 02:56 tramadol; vc1 - Home Meds: 02:56 atorvastatin 20 mg Oral tab 1 tab once daily [Active]; Eliquis 5 mg Oral tab 1 tab vc1 [Active]; sotalol 80 mg Oral tab 1 tab 2 times per day [Active]; - PMHx: 02:56 CAD; Hyperlipidemia; Hypertension; Myocardial infarction; vc1 02:56 Atrial fibrillation; vc1 - Immunization history:: Adult Immunizations up to date, Client reports receiving the 2nd dose of the Covid vaccine. - Social history:: Smoking status: Patient denies any tobacco usage or history of. ROS: 03:20 Constitutional: Negative for fever, chills, and weight loss, Eyes: Negative for injury, mh7 pain, redness, and discharge, ENT: Negative for injury, pain, and discharge, Neck: Negative for injury, pain, and swelling, Abdomen/GI: Negative for abdominal pain, nausea, vomiting, diarrhea, and constipation, Back: Negative for injury and pain, : Negative for injury, bleeding, discharge, and swelling, MS/Extremity: Negative for injury and deformity, Skin: Negative for injury, rash, and discoloration, Neuro: Negative for headache, weakness, numbness, tingling, and seizure, Psych: Negative for depression, anxiety, suicide ideation, homicidal ideation, and hallucinations, Allergy/Immunology: Negative for hives, rash, and allergies, Endocrine: Negative for neck swelling, polydipsia, polyuria, polyphagia, and marked weight changes, Hematologic/Lymphatic: Negative for swollen nodes, abnormal bleeding, and unusual bruising. Exam: 03:20 Constitutional: This is a well developed, well nourished patient who is awake, alert, mh7 and in no acute distress. Head/Face: Normocephalic, atraumatic. Eyes: Pupils equal round and reactive to light, extra-ocular motions intact. Lids and lashes normal. Conjunctiva and sclera are non-icteric and not injected. Cornea within normal limits. Periorbital areas with no swelling, redness, or edema. Neck: Trachea midline, no thyromegaly or masses palpated, and no cervical lymphadenopathy. Supple, full range of motion without nuchal rigidity, or vertebral point tenderness. No Meningismus. Chest/axilla: Normal chest wall appearance and motion. Nontender with no deformity. No lesions are appreciated. 03:20 Respiratory: Lungs have equal breath sounds bilaterally, clear to auscultation and percussion. No rales, rhonchi or wheezes noted. No increased work of breathing, no retractions or nasal flaring. Abdomen/GI: Soft, non-tender, with normal bowel sounds. No distension or tympany. No guarding or rebound. No evidence of tenderness throughout. Back: No spinal tenderness. No costovertebral tenderness. Full range of motion. Skin: Warm, dry with normal turgor. Normal color with no rashes, no lesions, and no evidence of cellulitis. MS/ Extremity: Pulses equal, no cyanosis. Neurovascular intact. Full, normal range of motion. Neuro: Awake and alert, GCS 15, oriented to person, place, time, and situation. Cranial nerves II-XII grossly intact. Motor strength 5/5 in all extremities. Sensory grossly intact. Cerebellar exam normal. Normal gait. Psych: Awake, alert, with orientation to person, place and time. Behavior, mood, and affect are within normal limits. 03:20 Cardiovascular: Rate: tachycardic, Rhythm: irregularly irregular, Pulses: no pulse deficits are appreciated, Heart sounds: normal, normal S1and S2, Edema: is not appreciated, JVD: is not appreciated. Vital Signs: 02:45 Weight 106.14 kg; Height 5 ft. 7 in. (170.18 cm); Pain 9/10; vc1 02:45 BP 154 / 87; Pulse 149; Resp 20; Temp 97.6; Pulse Ox 97% ; vc1 03:20 BP 147 / 96; Pulse 128; Resp 17 S; Pulse Ox 97% on R/A; as6 03:55 BP 121 / 62; Pulse 95; Resp 17 S; Pulse Ox 95% on R/A; as6 04:03 BP 114 / 59; Pulse 117; Resp 18; Pulse Ox 93% ; ke1 04:07 BP 114 / 79; Pulse 105; Resp 19; ke1 04:17 BP 113 / 66; Pulse 104; ke1 04:50 BP 98 / 70; Pulse 109; ke1 06:18 BP 96 / 69; Pulse 102; Resp 23 S; Pulse Ox 94% on R/A; as6 02:45 Body Mass Index 36.65 (106.14 kg, 170.18 cm) vc1 MDM: 05:12 Differential diagnosis: abnormal EKG, acute myocardial infarction, acute pericarditis, mh7 anxiety, coronary artery disease chest wall pain, congestive heart failure costochondritis, gastroesophageal reflux disease (GERD). HEART Score: History: Moderately Suspicious (1), ECG: Non specific repolarization disturbance / LBTB / PM (1), Age: > 45 and < 65 years (1), Risk Factors: 1 or 2 risk factors (1), [Hypercholesterolemia] [Hypertension] Troponin: < or = 1 x Normal Limit (0), Total Score = 4. Data reviewed: vital signs, nurses notes, lab test result(s), cardiac enzymes, CBC, electrolytes, EKG, radiologic studies, plain films. Data interpreted: Pulse oximetry: on room air is 95 %. Interpretation: normal. Counseling: I had a detailed discussion with the patient and/or guardian regarding: the historical points, exam findings, and any diagnostic results supporting the discharge/admit diagnosis, lab results, radiology results, the need for further work-up and treatment in the hospital. Response to treatment: the patient's symptoms have mildly improved after treatment. 05:14 Patient medically screened. [facility] 12/06 03:07 Order name: Basic Metabolic Panel; Complete Time: 04:38 [facility] 12/06 03:07 Order name: CBC with Diff; Complete Time: 04:38 [facility] 12/06 03:07 Order name: LFT's; Complete Time: 04:38 [facility] 12/06 03:07 Order name: Magnesium; Complete Time: 04:38 [facility] 12/06 03:07 Order name: NT PRO-BNP; Complete Time: 04:38 [facility] 12/06 03:07 Order name: PT-INR; Complete Time: 04:38 [facility] 12/06 03:07 Order name: Troponin HS; Complete Time: 04:38 [facility] 12/06 03:07 Order name: XRAY Chest (1 view) [facility] 12/06 03:07 Order name: EKG; Complete Time: 03:08 [facility] 12/06 03:07 Order name: Cardiac monitoring; Complete Time: 03:15 [facility] 12/06 03:07 Order name: EKG - Nurse/Tech; Complete Time: 03:15 [facility] 12/06 03:07 Order name: IV Saline Lock; Complete Time: 03:15 [facility] 12/06 05:37 Order name: SARS-COV-2 RT PCR (Document "Date of Onset" if Symptomatic) [facility] 12/06 03:07 Order name: Labs collected and sent; Complete Time: 03:18 [facility] 12/06 03:07 Order name: O2 Per Protocol; Complete Time: 03:16 [facility] 12/06 03:07 Order name: O2 Sat Monitoring; Complete Time: 03:16 [facility] Administered Medications: 03:24 Drug: Metoprolol 5 mg Route: IVP; Site: left antecubital; as6 04:00 Drug: Metoprolol 5 mg Route: IVP; Site: left antecubital; ke1 04:05 Drug: Metoprolol 5 mg Route: IVP; Site: left antecubital; ke1 06:19 Follow up: Response: No adverse reaction as6 Disposition Summary: 12/06/21 05:14 Hospitalization Ordered Hospitalization Status: Inpatient Admission mh7 Provider: Kenneth Damico Condition: Stable [facility] Problem: an acute exacerbation mh7 Symptoms: have improved mh7 Bed/Room Type: Standard [facility] Location: [facility] ER HOLD(12/06/21 09:31) [facility] Room Assignment: ERHOLD-(12/06/21 09:31) [facility] Diagnosis - Chest pain, unspecified mh7 - Atrial Fibrillation with RVR mh7 Forms: - Medication Reconciliation Form mh7 - SBAR form 7 Signatures: Dispatcher [employer] Sivan Leung RN RN Yvette St RN RN Manjula Mckeon5 Alexandr Méndez MD MD 7 Guanako Lockwood RN RN as6 Tabatha Ruth RN RN vc1 Anastasia Mckeon RN RN ke1 Corrections: (The following items were deleted from the chart) 05:23 05:14 Telemetry/MedSurg (Inpatient) mh7 cg 05:23 05:14 mh7 cg 07:30 05:23 [facility] ER HOLD cg dw 07:30 05:23 ERHOLD- cg dw 08:22 07:30 229 dw dw 09:31 07:30 Telemetry/MedSurg (Inpatient) dw mh5 09:31 08:22 208 dw mh5
--- NOTE | 2021-12-06 05:15 | ER ---
Nurse's Notes [facility] Name: Chery Mane Age: 61 yrs Sex: Female : 1960 Arrival Date: 12/06/2021 Time: 02:42 Bed 2 Private MD: Diagnosis: Chest pain, unspecified;Atrial Fibrillation with RVR Presentation: 12/06 02:45 Chief complaint: Patient states: "I started having chest pain about 0215, I took two vc1 nitro and it got better after the second one.". Coronavirus screen: Vaccine status: Patient reports receiving the 2nd dose of the covid vaccine. Moderna At this time, the client does not indicate any symptoms associated with coronavirus-19. Ebola Screen: No symptoms or risks identified at this time. Initial Sepsis Screen: Does the patient meet any 2 criteria? HR > 90 bpm. No. Patient's initial sepsis screen is negative. Does the patient have a suspected source of infection? No. Patient's initial sepsis screen is negative. Risk Assessment: Do you want to hurt yourself or someone else? Patient reports no desire to harm self or others. Onset of symptoms was December 06, 2021 at 02:15. 02:45 Method Of Arrival: Wheelchair vc1 02:45 Acuity: JOHANN 2 vc1 02:57 Care prior to arrival: Medication(s) given: Nitroglycerin, 0.4 mg SL x 2. vc1 Triage Assessment: 02:56 General: Appears in no apparent distress. uncomfortable, Behavior is calm, cooperative, vc1 appropriate for age. Pain: Complains of pain in chest Pain radiates to right arm Pain currently is 9 out of 10 on a pain scale. at worst was 10 out of 10 on a pain scale. Quality of pain is described as sharp. Historical: - Allergies: 02:56 Codeine; vc1 02:56 Sulfa (Sulfonamide Antibiotics); vc1 02:56 tramadol; vc1 - Home Meds: 02:56 atorvastatin 20 mg Oral tab 1 tab once daily [Active]; Eliquis 5 mg Oral tab 1 tab vc1 [Active]; sotalol 80 mg Oral tab 1 tab 2 times per day [Active]; - PMHx: 02:56 CAD; Hyperlipidemia; Hypertension; Myocardial infarction; vc1 02:56 Atrial fibrillation; vc1 - Immunization history:: Adult Immunizations up to date, Client reports receiving the 2nd dose of the Covid vaccine. - Social history:: Smoking status: Patient denies any tobacco usage or history of. Screenin:20 Abuse screen: Denies threats or abuse. Denies injuries from another. Nutritional as6 screening: No deficits noted. Tuberculosis screening: No symptoms or risk factors identified. Fall Risk None identified. Assessment: 03:18 General: Appears in no apparent distress. Behavior is calm, cooperative. Pain: as6 Complains of pain in chest Pain radiates to right arm Quality of pain is described as heavy, pressure, radiating, sharp. Neuro: Dawn Agitation-Sedation Scale (RASS): 0 - Alert and Calm Level of Consciousness is awake, alert, obeys commands, Oriented to person, place, time, situation. Cardiovascular: Reports chest pain, palpitations, shortness of breath, Patient's skin is warm and dry. Rhythm is atrial fibrillation with rapid ventricular response. Respiratory: Reports shortness of breath Respiratory effort is even, unlabored, Respiratory pattern is regular, symmetrical. Vital Signs: 02:45 Weight 106.14 kg; Height 5 ft. 7 in. (170.18 cm); Pain 9/10; vc1 02:45 BP 154 / 87; Pulse 149; Resp 20; Temp 97.6; Pulse Ox 97% ; vc1 03:20 BP 147 / 96; Pulse 128; Resp 17 S; Pulse Ox 97% on R/A; as6 03:55 BP 121 / 62; Pulse 95; Resp 17 S; Pulse Ox 95% on R/A; as6 04:03 BP 114 / 59; Pulse 117; Resp 18; Pulse Ox 93% ; ke1 04:07 BP 114 / 79; Pulse 105; Resp 19; ke1 04:17 BP 113 / 66; Pulse 104; ke1 04:50 BP 98 / 70; Pulse 109; ke1 06:18 BP 96 / 69; Pulse 102; Resp 23 S; Pulse Ox 94% on R/A; as6 02:45 Body Mass Index 36.65 (106.14 kg, 170.18 cm) vc1 ED Course: 02:42 Patient arrived in ED. bp1 02:56 Triage completed. vc1 02:58 Arm band placed on right wrist. vc1 03:01 Guanako Lockwood, RN is Primary Nurse. as6 03:06 Alexandr Méndez MD is Attending Physician. mh7 03:16 Inserted saline lock: 18 gauge in left antecubital area, using aseptic technique. Blood as6 collected. 03:20 Bed in low position. Call light in reach. Side rails up X 1. Adult w/ patient. Client as6 placed on continuous cardiac and pulse oximetry monitoring. NIBP monitoring applied. Warm blanket given. 03:30 XRAY Chest (1 view) In Process Unspecified. EDMS 05:13 Kenneth Damico is Hospitalizing Provider. mh7 06:18 No provider procedures requiring assistance completed. Patient admitted, IV remains in as6 place. Administered Medications: 03:24 Drug: Metoprolol 5 mg Route: IVP; Site: left antecubital; as6 04:00 Drug: Metoprolol 5 mg Route: IVP; Site: left antecubital; ke1 04:05 Drug: Metoprolol 5 mg Route: IVP; Site: left antecubital; ke1 06:19 Follow up: Response: No adverse reaction as6 Medication: 03:20 VIS not applicable for this client. as6 Outcome: 05:14 Decision to Hospitalize by Provider. mh7 06:18 Admitted to ER Hold. Please see [facility] for further documentation. as6 06:18 Condition: stable 06:18 Instructed on the need for admit. 10:35 Patient left the ED. jl7 Signatures: Dispatcher [employer] EDNH Otf Marquez RN RN jl7 Chioma Handy Maurice, MD MD 7 Guanako Lockwood RN RN as6 Tabatha Ruth RN RN 1 Anastasia Mckeon RN RN ke1
--- NOTE | 2021-12-06 05:49 | P.HP ---
Certification for Inpatient Patient admitted to: Observation With expected LOS: <2 Midnights Patient will require the following post-hospital care: None Practitioner: I am a practitioner with admitting privileges, knowledge of patient current condition, hospital course, and medical plan of care. Services: Services provided to patient in accordance with Admission requirements found in Title 42 Section 412.3 of the Code of Federal Regulations Patient History Date of Service: 12/06/21 Reason for admission: Afib RVR History of Present Illness: Patient is a 61-year-old female with past medical history of [place], A. fib on Eliquis, hypertension, hyperlipidemia who presented to the ED with complaints of irregular heart rate and chest pain. EKG recorded A. fib with a rate of 149. BP 154/87. She was given 3 doses of 5 mg metoprolol IV with successful conversion. No significant lab abnormalities. Patient reports that she fell asleep and forgot to take her medications before bed. She states she is otherwise good about taking her medications. She reports some residual chest pain, but otherwise is feeling much better. ED provider wishes to admit patient for observation. Allergies tramadol Allergy (Severe, Verified 12/25/11 14:45) Nausea/Vomiting codeine [Codeine] Allergy (Verified 12/24/11 12:36) Nausea/Vomiting Sulfa (Sulfonamide Antibiotics) [Sulfa(Sulfonamide Antibiotics)] Allergy (Verified 12/24/11 12:36) Rash Home Medications: Atorvastatin Calcium [Lipitor*] 20 mg PO BEDTIME #30 tab 05/18/19 Apixaban [Eliquis] 5 mg PO BID 04/09/20 Sotalol HCl [Betapace*] 80 mg PO BID #60 tab 04/11/20 Fluoxetine HCl [Prozac] 40 mg PO DAILY 10/08/20 Ascorbic Acid [Vitamin C*] 500 mg PO QID #120 tablet 10/11/20 Benzonatate [Tessalon Perle*] 100 mg PO TID PRN #30 cap 10/11/20 Cholecalciferol (Vitamin D3) [Vitamin D 1000 Iu Tab*] 4,000 unit PO DAILY #120 tab 10/11/20 Melatonin 5 mg PO BEDTIME PRN PRN #30 tablet 10/11/20 Thiamine HCl [Vitamin B-1*] 200 mg PO DAILY #30 tablet 04/06/21 Zinc Sulfate [Zinc Sulfate*] 220 mg PO DAILY #30 cap 10/11/20 predniSONE [Deltasone] 20 mg PO BID #21 tab 10/11/20 - Past Medical/Surgical History Diabetic: No -: [place] w/ stent placement -: Hypertension -: Hyperlipidemia -: JELANI w/ Cpap use -: Paroxysmal atrial fibrillaton on Eliquis -: R ankle surgery Psychosocial/ Personal History: Patient lives at home with her and is disabled. - Family History Father -: Heart disease Notes: heart disease Sister -: Heart disease, Diabetes, Stroke Notes: stroke Brother -: Heart disease Notes: Heart attack Mother -: Heart disease, GI disease Grand mother -: Heart disease Notes: CHF Grand father -: Stroke Notes: stroke - Social History Smoking Status: Never smoker Alcohol use: No CD- Drugs: No Caffeine use: Yes Place of Residence: Home Review of Systems 10-point ROS is otherwise unremarkable Cardiovascular: Chest Pain Physical Examination - Physical Exam General: Alert, In no apparent distress HEENT: Atraumatic, PERRLA, EOMI, Sclerae nonicteric Neck: Supple, 2+ carotid pulse no bruit, No LAD, Without JVD or thyroid abnormality Respiratory: Clear to auscultation bilaterally, Normal air movement Cardiovascular: No edema, Irregular heart rate/rhythm Gastrointestinal: Normal bowel sounds, No tenderness Musculoskeletal: No tenderness Integumentary: No rashes Neurological: Normal speech, Normal strength at 5/5 x4 extr, Normal affect - Studies Laboratory Data (last 24 hrs) 12/06/21 03:16: PT 15.0 H, INR 1.36 12/06/21 03:16: WBC 11.7 H, Hgb 14.8, Hct 46.2 H, Plt Count 278 12/06/21 03:16: Sodium 139, Potassium 3.6, BUN 11, Creatinine 1.02, Glucose 118 H, Magnesium 2.0 D, Total Bilirubin 0.3, AST 12 L, ALT 23, Alkaline Phosphatase 106 Assessment and Plan - Problems (Diagnosis) (1) Atrial fibrillation with RVR Current Visit: Yes Status: Acute (2) Chest pain Current Visit: Yes Status: Acute Qualifiers: Chest pain type: unspecified Qualified Code(s): R07.9 - Chest pain, unspecified (3) Hypertension Current Visit: Yes Status: Chronic Qualifiers: Hypertension type: primary hypertension Qualified Code(s): I10 - Essential (primary) hypertension - Plan -Admit for observation -Cont to monitor on telemetry and control ventricular rate as needed -Cardiology consulted -Cont anticoagulation with eliquis -Chest pain secondary to afib RVR. Troponin negative -Full Code Discharge Plan: Home Plan to discharge in: 24 Hours - Advance Directives Does patient have a Living Will: Yes Does patient have a Durable POA for Healthcare: No - Code Status/Comfort Care Code Status Assessed: Yes (Full) Critical Care: No Time Spent Managing Pts Care (In Minutes): 50
[2021-12-06] MEDS ORDERED: ONDANSETRON 4 MG/2 ML VIAL IV PRN (06:01)
[2021-12-06] MEDS ORDERED: ACETAMINOPHEN 500 MG TAB PO PRN (06:01)
[2021-12-06 06:07] VITALS: BMI 36.6
--- NOTE | 2021-12-06 07:50 | EKG ---
Test Date: 2021-12-06 Test Time: 02:51:18 Chemical Production Technician: SAV MEASUREMENT RESULTS: Intervals: Rate: 142 AR: QRSD: 82 QT: 312 QTc: 479 [place]: P: AR: QRS: 50 T: 108 INTERPRETIVE STATEMENTS: Atrial fibrillation with rapid ventricular response Nonspecific ST and T wave abnormality Abnormal ECG Compared to ECG 10/09/2020 10:07:21 ST (T wave) deviation now present Sinus rhythm no longer present Electronically Signed On 12-06-21 07:50:16 CDT by Miguel Dodson
[2021-12-06] MEDS ORDERED: APIXABAN 5 MG TABLET PO SCH (09:00)
[2021-12-06 10:48] VITALS: TEMP 97.6
[2021-12-06 10:59] VITALS: BP 96/69; O2SAT 94
--- NOTE | 2021-12-06 18:57 | RAD REPORT ---
EXAM DESCRIPTION: XR Chest, 1 View CLINICAL HISTORY: The patient is 61 years old and is Female; CHEST PAIN TECHNIQUE: Frontal view of the chest. COMPARISON: No relevant prior studies available. FINDINGS: Lungs: Mildly prominent interstitial markings. No consolidation. Pleural space: Unremarkable. No pneumothorax. Heart: Unremarkable. Mediastinum: Unremarkable. Bones/joints: Unremarkable. IMPRESSION: Mildly prominent interstitial markings. No consolidation. Electronically signed by: Nsaim Valladares MD 12/06/2021 3:43 AM CDT Due to temporary technical issues with the PACS/Fluency reporting system, reports are being signed by the in house radiologists without review as a courtesy to insure prompt reporting. The interpreting radiologist is fully responsible for the content of the report.
--- NOTE | 2021-12-10 15:56 | CON ---
Date of Consultation: 12/06/[address] Méndez' service and Dr. Oliveros's service on 12/06/2021. I saw the patient on 2. Reason For Consultation: Chest pain. History Of Present Illness: Ms. Mane is a 61-year-old. She is known to me from previous office vi sits and admission. She does have a history of coronary artery disease, hypertension, dyslipidemia a s well as atrial fibrillation for which she takes sotalol and Eliquis. She was taking sotalol 40 mg b.i.d., missed it for 2 days. She came back in atrial fibrillation and chest pain with that. Denies any PND, orthopnea, pedal edema. Denied any syncope. Denied any nausea, vomiting, diaphoresis, fev er or chills. She is asymptomatic by the time I saw her, back in normal rhythm after receiving 1 dos e of sotalol. Allergies: SHE IS ALLERGIC TO CODEINE, SULFA, AND TRAMADOL. Medications: At home include Lipitor, Eliquis, sotalol. Review of Systems: Negative. Social History: Negative. Family History: Noncontributory. Physical Examination: Vital Signs: When I saw her, she was back in sinus rhythm. Her vital signs were otherwise stable, a febrile. HEENT: Negative. Neck: Supple with no bruit. Chest: Clear to auscultation and percussion. Cardiac: Revealed a regular rhythm and rate. No murmurs, gallops, or rubs. Abdomen: Benign. Extremities: Revealed no clubbing, cyanosis, or edema. Diagnostic Data: Chest x-ray was unremarkable. EKG showed atrial fibrillation with rapid ventricula r response. Diagnostic data were otherwise normal. Impression And Plan: Recurrent atrial fibrillation after missing sotalol, I would put her back on 80 b.i.d., continue on Eliquis and send her home. I will see her in the office in the future. Her cor onary artery disease, hypertension, and dyslipidemia are stable. She follows up with me on a regular basis. I will see her soon. ZOFIA/NEVILLE Voice ID: [id number] Report ID: [id number]
== END 2021-12-06 10:41 | disposition home health service (06) ==
LOC: ER 02:41 → ERHOLD 05:42 → UNDOADMOB 05:48 → ERHOLD 05:48 → 2ND 08:29
PROVIDERS: ADMIT Hospitalist; ATTEND Hospitalist
DX: I48.91 Unspecified atrial fibrillation (principal); I25.10 Atherosclerotic heart disease of native coronary artery without angina pectoris; I10 Essential (primary) hypertension; E78.5 Hyperlipidemia, unspecified; I25.2 Old myocardial infarction; G47.33 Obstructive sleep apnea (adult) (pediatric); Z95.5 Presence of coronary angioplasty implant and graft; Z79.01 Long term (current) use of anticoagulants; Z79.899 Other long term (current) drug therapy; Z99.81 Dependence on supplemental oxygen; Z88.5 Allergy status to narcotic agent; Z88.2 Allergy status to sulfonamides; Z20.822 Contact with and (suspected) exposure to COVID-19; Z82.49 Family history of ischemic heart disease and other diseases of the circulatory system; Z82.3 Family history of stroke; Z83.3 Family history of diabetes mellitus; Z83.79 Family history of other diseases of the digestive system
CPT/HCPCS: 93005; 85025; 80048; 36415; 83735; 85610; 80076; 84484; 83880; 71045; 96374; 99285; U0003; G0378 ×2

== ENCOUNTER 2021-12-14 16:59 | Emergency (ER) | payer OTHER ==
[2021-12-14 18:52] LABS: Absolute Lymphocytes (CBC) 2.1 K/uL (0.7-4.9); Hematocrit 40.2 % (36.0-45.0); Lymphocytes % 22.6 % (15.3-44.8); MPV 8.7 fL (7.6-11.3); RBC Red Blood Cell Count 4.92 M/uL (3.86-4.86)
[2021-12-14 19:03] LABS: Albumin 3.5 g/dL (3.4-5.0); Bilirubin Total 0.6 mg/dL (0.2-1.0); Potassium 3.5 mmol/L (3.5-5.1); Protein, Total 7.5 g/dL (6.4-8.2)
--- NOTE | 2021-12-14 19:41 | RAD REPORT ---
EXAM DESCRIPTION: CT - Abdomen Pelvis W Contrast - 12/14/2021 7:31 pm CLINICAL HISTORY: Abdominal pain COMPARISON: 2020 TECHNIQUE: Computed axial tomography of the abdomen pelvis was obtained. 100 cc Isovue-300 was admin istered intravenously. Oral contrast was not requested which limits evaluation of bowel and appendix All CT scans are performed using dose optimization technique as appropriate and may include automated exposure control or mA/KV adjustment according to patient size. FINDINGS: Small bilateral pleural effusions The liver, spleen, pancreas, adrenal and kidneys appear unremarkable. There is no evidence of diverticulitis. Trace amount of ascites. Atherosclerotic disease. 2.4 centimeter uterine fibroid IMPRESSION: Small bilateral pleural effusions Trace amount of ascites
--- NOTE | 2021-12-14 19:42 | RAD REPORT ---
EXAM DESCRIPTION: Brando Single View12/14/2021 6:05 pm CLINICAL HISTORY: Chest pain COMPARISON: December 06, 2021 FINDINGS: The lungs appear clear of acute infiltrate. The heart is moderately enlarged
[2021-12-14] MEDS ORDERED: FUROSEMIDE 20 MG/ 2ML VIAL ONE (21:30)
--- NOTE | 2021-12-14 22:11 | ER ---
Nurse's Notes [facility] Name: Chery Mane Age: 61 yrs Sex: Female : 1960 Arrival Date: 12/14/2021 Time: 17:01 Bed 12 Private MD: Caridad Gonzalez Diagnosis: Diarrhea, unspecified;Unspecified combined systolic (congestive) and diastolic (congestive) heart failure Presentation: 12/14 17:19 Chief complaint: Patient states: Diarrhea since Saturday. Black stool and bilateral ll1 abdominal pain. + SOB got worse than usual last night. Coronavirus screen: Vaccine status: Patient reports receiving the 2nd dose of the covid vaccine. Client denies travel out of the [place] in the last 14 days. At this time, the client does not indicate any symptoms associated with coronavirus-19. Ebola Screen: Patient denies travel to an Ebola-affected area in the 21 days before illness onset. Initial Sepsis Screen: Does the patient meet any 2 criteria? No. Patient's initial sepsis screen is negative. Does the patient have a suspected source of infection? Yes: Acute abdominal pain. Risk Assessment: Do you want to hurt yourself or someone else? Patient reports no desire to harm self or others. Onset of symptoms was December 10, 2021. 17:19 Method Of Arrival: Wheelchair ll1 17:19 Acuity: JOHANN 3 ll1 Triage Assessment: 17:23 General: Appears uncomfortable, ill, Behavior is cooperative, appropriate for age. ll1 Pain: Complains of pain in abdomen Quality of pain is described as aching, Is continuous. Respiratory: Reports shortness of breath. GI: Reports lower abdominal pain, upper abdominal pain, diarrhea. Historical: - Allergies: 17:19 Codeine; ll1 17:19 Sulfa (Sulfonamide Antibiotics); ll1 17:19 tramadol; ll1 - PMHx: 17:19 Atrial fibrillation; CAD; Hyperlipidemia; Hypertension; Myocardial infarction; ll1 - PSHx: 17:22 leg SX; ll1 - Immunization history:: Client reports receiving the 2nd dose of the Covid vaccine. - Social history:: Smoking status: Patient denies any tobacco usage or history of. Screenin:03 Abuse screen: Denies threats or abuse. Denies injuries from another. Nutritional ld1 screening: No deficits noted. Tuberculosis screening: No symptoms or risk factors identified. Fall Risk None identified. Assessment: 19:03 General: Appears in no apparent distress. comfortable, Behavior is calm, cooperative, ld1 appropriate for age. Pain: Complains of pain in low back area Pain does not radiate. Pain currently is 8 out of 10 on a pain scale. Neuro: Level of Consciousness is awake, alert, obeys commands, Oriented to person, place, time, situation. Cardiovascular: Capillary refill < 3 seconds Patient's skin is warm and dry. Rhythm is sinus rhythm. Respiratory: Airway is patent Respiratory effort is even, unlabored. GI: Abdomen is round non-distended, Bowel sounds present X 4 quads. Abd is soft Abd is non tender. : No signs and/or symptoms were reported regarding the genitourinary system. EENT: No signs and/or symptoms were reported regarding the EENT system. Derm: No signs and/or symptoms reported regarding the dermatologic system. Musculoskeletal: No signs and/or symptoms reported regarding the musculoskeletal system. 20:27 Reassessment: Patient appears in no apparent distress at this time. Patient is alert, ld1 oriented x 3, equal unlabored respirations, skin warm/dry/pink. Vital Signs: 17:19 BP 166 / 86; Pulse 66; Resp 18; Temp 97.8; Pulse Ox 91% ; Weight 106.14 kg; Height 5 ll1 ft. 7 in. (170.18 cm); Pain 7/10; 19:03 BP 165 / 75; Pulse 60; Resp 18; Pulse Ox 95% on R/A; Pain 6/10; ld1 20:27 BP 159 / 72; Pulse 65; Resp 18; Pulse Ox 100% on R/A; ld1 21:26 BP 146 / 82; Pulse 62; Resp 18; Pulse Ox 95% on R/A; ld1 17:19 Body Mass Index 36.65 (106.14 kg, 170.18 cm) ll1 ED Course: 17:01 Patient arrived in ED. mr 17:02 Caridad Gonzalez is Private Physician. mr 17:04 Lay Negron FNP-C is [facility]. kb 17:04 Milton Kennedy MD is Attending Physician. kb 17:21 Triage completed. ll1 17:23 Arm band placed on. ll1 18:06 Chest Single View XRAY In Process Unspecified. EDMS 18:51 Felicitas Serna, RN is Primary Nurse. ld1 19:03 Patient has correct armband on for positive identification. Placed in gown. Bed in low ld1 position. Call light in reach. Side rails up X2. fulling mill operator on. Pulse ox on. NIBP on. Door closed. Noise minimized. Warm blanket given. 19:03 No provider procedures requiring assistance completed. Inserted saline lock: 20 gauge ld1 in left antecubital area, using aseptic technique. Blood collected. 19:33 CT Abd/Pelvis - IV Contrast Only In Process Unspecified. EDMS 20:26 COVID-19 SARS RT PCR (Document "Date of Onset" if Symptomatic) Sent. ld1 20:26 Troponin HS Sent. ld1 20:57 PHCP role handed off by Lay Negron FNP-C cp 20:57 Charanjit Valenzuela PA is PHCP. cp 20:58 COVID-19 SARS RT PCR (Document "Date of Onset" if Symptomatic) Sent. ld1 22:20 IV discontinued, intact, bleeding controlled, No redness/swelling at site. ld1 Administered Medications: 21:26 Drug: Lasix (furosemide) 20 mg Route: IVP; Site: left antecubital; ld1 Medication: 19:03 VIS not applicable for this client. ld1 Outcome: 22:10 Discharge ordered by . cp 22:20 Discharged to home ambulatory, with family. ld1 22:20 Condition: stable 22:20 Discharge instructions given to patient, family, Instructed on discharge instructions, follow up and referral plans. Demonstrated understanding of instructions, follow-up care. 22:20 Patient left the ED. ld1 Signatures: Dispatcher [employer] EDTN Lay Negron, SASKIA Carrillo Svetlana Still mr Charanjit Valenzuela PA PA cp Helene Mosley RN RN ll1 Felicitas Serna, ROBIN RN ld1 Corrections: (The following items were deleted from the chart) 17:22 17:19 Pulse 66bpm; Resp 18bpm; 106.14 kg; Height 5 ft. 7 in.; BMI: 36.6; Pain 7/10; ll1 ll1
--- NOTE | 2021-12-14 22:12 | EDPHYS ---
Physician Documentation [facility] Name: Chery Mane Age: 61 yrs Sex: Female : 1960 Arrival Date: 12/14/2021 Time: 17:01 Bed 12 Private MD: Caridad Gonzalez ED Physician Milton Kennedy HPI: 12/14 19:39 This 61 yrs old Black Female presents to ER via Wheelchair with complaints of Abdominal kb Pain, Shortness Of Breath, Black/Tarry Stools. 19:39 The patient presents with abdominal pain that is diffuse. Onset: The symptoms/episode kb began/occurred 4 day(s) ago. The symptoms do not radiate. Associated signs and symptoms: Pertinent positives: diarrhea, shortness of breath. The symptoms are described as constant. Modifying factors: The symptoms are alleviated by nothing, the symptoms are aggravated by nothing. Severity of pain: At its worst the pain was mild moderate in the emergency department the pain is unchanged. The patient has not experienced similar symptoms in the past. The patient has not recently seen a physician. Pt reports diffuse abd pain and diarrhea for 4 days. States the diarrhea got better yesterday, but now stool is dark. Reports shortness of breath that has been intermittent for a while, but felt like it was worse last night. Historical: - Allergies: 17:19 Codeine; ll1 17:19 Sulfa (Sulfonamide Antibiotics); ll1 17:19 tramadol; ll1 - PMHx: 17:19 Atrial fibrillation; CAD; Hyperlipidemia; Hypertension; Myocardial infarction; ll1 - PSHx: 17:22 leg SX; ll1 - Immunization history:: Client reports receiving the 2nd dose of the Covid vaccine. - Social history:: Smoking status: Patient denies any tobacco usage or history of. ROS: 19:38 Constitutional: Negative for fever, chills, and weight loss. kb 19:38 Respiratory: Positive for shortness of breath. 19:38 Abdomen/GI: Positive for abdominal pain, diarrhea. 19:38 All other systems are negative. Exam: 19:38 Constitutional: This is a well developed, well nourished patient who is awake, alert, kb and in no acute distress. Head/Face: Normocephalic, atraumatic. ENT: Moist Mucous membranes Cardiovascular: Regular rate and rhythm with a normal S1 and S2. No gallops, murmurs, or rubs. No pulse deficits. Respiratory: Respirations even and unlabored. No increased work of breathing. Talking in full sentences Abdomen/GI: Soft, non-tender. No distention Skin: Warm, dry with normal turgor. Normal color. MS/ Extremity: Pulses equal, no cyanosis. Neurovascular intact. Full, normal range of motion. Neuro: Awake and alert, GCS 15, oriented to person, place, time, and situation. Moves all extremities. Normal gait. Psych: Awake, alert, with orientation to person, place and time. Behavior, mood, and affect are within normal limits. 19:38 Abdomen/GI: Rectal exam: Stool: guaiac negative. 20:18 ECG was reviewed by the Attending Physician. cp Vital Signs: 17:19 BP 166 / 86; Pulse 66; Resp 18; Temp 97.8; Pulse Ox 91% ; Weight 106.14 kg; Height 5 ll1 ft. 7 in. (170.18 cm); Pain 7/10; 19:03 BP 165 / 75; Pulse 60; Resp 18; Pulse Ox 95% on R/A; Pain 6/10; ld1 20:27 BP 159 / 72; Pulse 65; Resp 18; Pulse Ox 100% on R/A; ld1 21:26 BP 146 / 82; Pulse 62; Resp 18; Pulse Ox 95% on R/A; ld1 17:19 Body Mass Index 36.65 (106.14 kg, 170.18 cm) ll1 MDM: 17:28 Patient medically screened. kb 19:38 Data reviewed: vital signs, nurses notes. Data interpreted: Pulse oximetry: on room air kb is 95 %. Interpretation: normal. 20:07 Transition of care: After a detail discussion of the patient's case, care is kb transferred to Charanjit GOEL. ED course: Pt now reports she is getting short of breath on exertion and reports oxygen level at home of 87%. No history of CHF that is known. Will add cardiac labs. 21:06 ED course: Patient reports she has not been taking prescribed diuretic over past cp several days due to diarrhea. Patient reports shortness of breath with exertion in ED, will give IV Lasix and monitor. 12/14 17:29 Order name: CBC with Diff; Complete Time: 19:18 kb 12/14 20:58 Interpretation: Reviewed. cp 12/14 17:29 Order name: CMP; Complete Time: 19:06 kb 12/14 20:58 Interpretation: Normal except: GFR 68. cp 12/14 17:29 Order name: Lipase; Complete Time: 19:06 kb 12/14 17:32 Order name: Occult Blood--Ancillary dh3 12/14 20:05 Order name: NT PRO-BNP; Complete Time: 20:57 kb 12/14 20:57 Interpretation: Abnormal: NT PRO-BNP 402. cp 12/14 20:05 Order name: Troponin HS; Complete Time: 20:57 kb 12/14 17:29 Order name: Chest Single View XRAY; Complete Time: 19:47 kb 12/14 17:29 Order name: CT Abd/Pelvis - IV Contrast Only; Complete Time: 19:47 kb 12/14 17:29 Order name: IV Saline Lock; Complete Time: 19:03 kb 12/14 17:29 Order name: Labs collected and sent; Complete Time: 19:03 kb 12/14 20:05 Order name: EKG; Complete Time: 20:06 kb 12/14 20:05 Order name: Cardiac monitoring; Complete Time: 20:26 kb 09 20:06 Order name: COVID-19 SARS RT PCR (Document "Date of Onset" if Symptomatic); Complete kb Time: 21:41 12/14 20:05 Order name: EKG - Nurse/Tech; Complete Time: 20:26 kb 12/14 20:05 Order name: O2 Per Protocol; Complete Time: 20:26 kb 12/14 20:05 Order name: O2 Sat Monitoring; Complete Time: 20:26 kb EC:18 Rate is 55 beats/min. Rhythm is regular. [place] interval is normal. QRS interval is normal. cp QT interval is normal. T waves are Inverted in lead aVR. Interpreted by me. Reviewed by me. Administered Medications: 21:26 Drug: Lasix (furosemide) 20 mg Route: IVP; Site: left antecubital; ld1 Disposition Summary: 12/14/21 22:10 Discharge Ordered Location: Home cp Problem: new cp Symptoms: have improved cp Condition: Stable cp Diagnosis - Diarrhea, unspecified cp - Unspecified combined systolic (congestive) and diastolic (congestive) heart failure cp Followup: cp - With: Private Physician - When: 1 - 2 days - Reason: Recheck today's complaints Discharge Instructions: - Discharge Summary Sheet cp - Food Choices to Help Relieve Diarrhea, Adult cp - Diarrhea, Adult cp - Heart Failure Exacerbation cp - Heart Failure Eating Plan cp Forms: - Medication Reconciliation Form cp - Thank You Letter cp - Antibiotic Education cp - Prescription Opioid Use cp Addendum: 12/17/2021 19:29 Attestation: The patient's history, exam findings, diagnostics, and a summary of any j r11 interventions or procedures was reviewed in detail with Charanjit GOEL. Signatures: Dispatcher [employer] EDMS Lay Negron, ZANDRA-C ROTOR WINDER-Kikob Charanjit Valenzuela PA PA cp Lewis, Lynsay, RN RN ll1 Felicitas Serna RN RN ld1 Milton Kennedy MD MD [id number] Corrections: (The following items were deleted from the chart) 12/14 20:08 19:48 Counseling: I had a detailed discussion with the patient and/or guardian new regarding: the historical points, exam findings, and any diagnostic results supporting the discharge/admit diagnosis, lab results, radiology results, the need for outpatient follow up, a family practitioner, to return to the emergency department if symptoms worsen or persist or if there are any questions or concerns that arise at home, kb
[2021-12-14 22:29] VITALS: TEMP 97.8
[2021-12-14 22:35] VITALS: BP 146/82; O2SAT 95
--- NOTE | 2021-12-15 06:16 | EKG ---
Test Date: 2021-12-14 Test Time: 20:12:52 Assurance Senior Manager: JESSICA MEASUREMENT RESULTS: Intervals: Rate: 55 ND: 136 QRSD: 82 QT: 436 QTc: 417 [place]: P: 64 ND: 136 QRS: 72 T: 29 INTERPRETIVE STATEMENTS: Sinus bradycardia Nonspecific ST abnormality Abnormal ECG Compared to ECG 12/06/2021 02:51:18 Atrial fibrillation no longer present ST (T wave) deviation still present Electronically Signed On 12-15-21 06:15:54 CDT by Miguel Dodson
== END 2021-12-14 22:20 | disposition home or self-care (01) ==
LOC: ER 16:59
DX: I50.40 Unspecified combined systolic (congestive) and diastolic (congestive) heart failure (principal); R19.7 Diarrhea, unspecified; I10 Essential (primary) hypertension; I48.91 Unspecified atrial fibrillation; Z20.822 Contact with and (suspected) exposure to COVID-19; Z88.2 Allergy status to sulfonamides; Z88.5 Allergy status to narcotic agent
CPT/HCPCS: 93005; 85025; 36415; 84484; 83690; 80053; 83880; 74177; 71045; 96374; 99284; U0003; Q9967; J1940

== ENCOUNTER 2024-02-29 19:00 | Emergency (ER) | payer OTHER ==
--- OUTSIDE RECORDS SUMMARY | 2024-02-29 19:02 | XMS REPORT | Continuity of Care Document ---
Author Name Unknown Address [address] [facility] [address] th[address] Address [address] [facility] [address] [place] [address] Care Team Providers Care Laboratory Geneticist Name Role Phone AWA Attending Clinician Unavailable AWA Admitting Clinician Unavailable Encounters Start Date/Time End Date/Time Encounter Type Admission Type Attending Clinicians Care Facility Care Department Encounter ID Source 2023-01-28 09:38:13 2023-01-28 09:38:13 Outpatient [facility] [id number] Michael Marin 2022-12-28 08:51:48 2022-12-28 08:51:48 Outpatient [facility] [id number] Michael Marin 2022-01-16 10:12:00 2022-01-16 10:12:00 Outpatient [facility]IA [facility] [id number] Joe vann [facility] Program
[2024-02-29 20:35] LABS: SARS-CoV-2 Antigen CONTROL BLUE LINE VIS/BG OK; SARS-CoV-2 Antigen Rapid Res Negative (Negative)
[2024-02-29] MEDS ORDERED: AZITHROMYCIN 250 MG TAB ONE (22:18)
[2024-02-29] MEDS ORDERED: ACETAMINOPHEN 500 MG TAB ONE (22:18)
[2024-02-29] MEDS ORDERED: GUAIFENESIN/DM 5 ML UCUP ONE (22:19)
--- NOTE | 2024-02-29 22:19 | EDPHYS ---
Physician Documentation [facility] Name: Chery Mane Age: 63 yrs Sex: Female : 1960 Arrival Date: 02/29/2024 Time: 19:00 Bed 21 Private MD: ED Physician Deangelo Diaz HPI: 02/28 19:07 This 63 yrs old Black Female presents to ER via Unassigned with complaints of Flu sp4 Symptoms, Shortness Of Breath. 03/01 07:46 Patient presents with complaint of productive cough and some trouble breathing. . sp4 Historical: - Allergies: 02/28 20:02 Codeine; bm8 20:02 Sulfa (Sulfonamide Antibiotics); bm8 20:02 tramadol; bm8 - Home Meds: 20:02 atorvastatin 20 mg Oral tab 1 tab once daily [Active]; Eliquis 5 mg Oral tab 1 tab bm8 [Active]; sotalol 80 mg Oral tab 1 tab 2 times per day [Active]; - PMHx: 20:02 Atrial fibrillation; CAD; Hyperlipidemia; Hypertension; Myocardial infarction; bm8 - PSHx: 20:02 Leg sx; bm8 - Immunization history:: Adult Immunizations unknown. - Infectious Disease History:: Denies. - Social history:: Smoking status: Patient denies any tobacco usage or history of. - Family history:: not pertinent. ROS: 03/01 07:46 Constitutional: Negative for fever, chills, and weight loss, Respiratory: Positive sp4 cough and productive cough All other systems are negative, Exam: 07:46 Constitutional: This is a well developed, well nourished patient who is awake, alert, sp4 and in no acute distress. Head/Face: Normocephalic, atraumatic. Eyes: Pupils equal round and reactive to light, extra-ocular motions intact. Lids and lashes normal. Conjunctiva and sclera are not injected. Cornea within normal limits. Periorbital areas with no swelling, redness, or edema. ENT: Nares patent. No nasal discharge, no septal abnormalities noted. Tympanic membranes are normal and external auditory canals are clear. Oropharynx with no redness, swelling, or masses, exudates, or evidence of obstruction, uvula midline. Mucous membranes moist. Neck: Trachea midline, no thyromegaly or masses palpated, and no cervical lymphadenopathy. Supple, full range of motion without nuchal rigidity, or vertebral point tenderness. Chest/axilla: Normal chest wall appearance and motion. Nontender with no deformity. No lesions are appreciated. Cardiovascular: Regular rate and rhythm with a normal S1 and S2. No gallops, murmurs, or rubs. Normal PMI, no JVD. No pulse deficits. Respiratory: Lungs have equal breath sounds bilaterally, clear to auscultation and percussion. No rales, rhonchi or wheezes noted. No increased work of breathing, no retractions or nasal flaring. Abdomen/GI: Soft, with normal bowel sounds. No distension or tympany. No guarding or rebound. No evidence of tenderness throughout. Back: No spinal tenderness. No costovertebral tenderness. Skin: Warm, dry with normal turgor. Normal color with no rashes, no lesions, and no evidence of cellulitis. MS/ Extremity: Pulses equal, no cyanosis. Neurovascular intact. Full, normal range of motion. Neuro: Awake and alert, GCS 15, oriented to person, place, time, and situation. Cranial nerves II-XII grossly intact. Motor strength 5/5 in all extremities. Sensory grossly intact. Psych: Awake, alert, with orientation to person, place and time. Behavior, mood, and affect are within normal limits Vital Signs: 02/28 19:58 BP 179 / 88; Pulse 76; Resp 16; Temp 98.2; Pulse Ox 94% ; Weight 99.79 kg; Height 5 ft. bm8 7 in. ; Pain 0/10; 22:00 BP 182 / 79; Pulse 78; Resp 18; Temp 98.2; Pulse Ox 95% on R/A; Pain 0/10; bm8 19:58 Body Mass Index 34.46 (99.79 kg, 170.18 cm) bm8 19:58 Pain Scale: Adult bm8 22:00 Pain Scale: Adult bm8 22:00 pt states that she will take her bp medication when she gets home bm8 [place] Coma Score: 20:04 Eye Response: spontaneous(4). Motor Response: obeys commands(6). Verbal Response: bm8 oriented(5). Total: 15. MDM: 19:07 Patient medically screened. sp4 03/01 07:46 Differential diagnosis: asthma, Bronchitis reactive airway disease. Data reviewed: sp4 vital signs, nurses notes, COVID - 19 negative , stable for discharge home . 02/28 19:07 Order name: SARS RAPID; Complete Time: 21:44 sp4 Administered Medications: 02/28 22:19 Drug: AZITHromycin PO 500 mg PO once Route: PO; bm8 22:25 Follow up: Response: No adverse reaction bm8 22:19 Drug: Dextromethorphan-Guaifenesin PO Liquid 10 mg-100 mg/5 mL 10 ml PO once Route: PO; bm8 22:25 Follow up: Response: No adverse reaction bm8 22:19 Drug: Acetaminophen PO 1000 mg PO once Route: PO; bm8 22:25 Follow up: Response: No adverse reaction bm8 Disposition: 03/01 08:04 Chart complete. sp4 Disposition Summary: 02/29/24 22:19 Discharge Ordered Notes: Location: Home sp4 Problem: new sp4 Symptoms: have improved sp4 Condition: Stable sp4 Diagnosis - Acute bronchitis, unspecified sp4 Followup: sp4 - With: Private Physician - When: 7 - 10 days - Reason: Recheck today's complaints Discharge Instructions: - Discharge Summary Sheet sp4 - Acute Bronchitis, Adult sp4 Forms: - Patient Portal Instructions sp4 Prescriptions: - dextromethorphan-guaifenesin 60-1,200 mg Oral Tablet, Extended Release 12 hr - take 1 tablet ORAL route every 12 hours PRN cough; 30 tablet; Refills: 0, sp4 Product Selection Permitted - Zithromax Z-Siva 250 mg Oral Tablet - take 1 tablet ORAL route as directed for 5 days Day 1 - take two (2) tablets sp4 one time. Day 2, 3, 4 , 5 take one (1) tablet once daily.; 6 tablet; Refills: 0, Product Selection Permitted Signatures: Dispatcher [employer] EDDeangelo Payne MD MD sp4 Jean-Pierre Edward RN RN bm8 Corrections: (The following items were deleted from the chart) 02/28 19:08 19:08 SARS-COV-2 Antigen Rapid+I.LAB.BRZ ordered. EDMS EDMS
--- NOTE | 2024-02-29 22:19 | ER ---
Nurse's Notes [facility] Name: Chery Mane Age: 63 yrs Sex: Female : 1960 Arrival Date: 02/29/2024 Time: 19:00 Bed 21 Private MD: Diagnosis: Acute bronchitis, unspecified Presentation: 02/28 20:01 Chief complaint: Patient states: I have been feeling short of breath since Saturday, but bm8 no fevers. Coronavirus screen: At this time, the client does not indicate any symptoms associated with coronavirus-19. Ebola Screen: Patient negative for fever greater than or equal to 101.5 degrees Fahrenheit, and additional compatible Ebola Virus Disease symptoms Patient denies exposure to infectious person. Patient denies travel to an Ebola-affected area in the 21 days before illness onset. No symptoms or risks identified at this time. Initial Sepsis Screen: Does the patient meet any 2 criteria? No. Patient's initial sepsis screen is negative. Does the patient have a suspected source of infection? No. Patient's initial sepsis screen is negative. Risk Assessment: Do you want to hurt yourself or someone else? Patient reports no desire to harm self or others. Onset of symptoms was February 25, 2024 at 08:00. 20:01 Method Of Arrival: Ambulatory bm8 20:01 Acuity: JOHANN 4 bm8 Triage Assessment: 20:02 General: Appears in no apparent distress. comfortable, Behavior is calm, cooperative, bm8 appropriate for age. Pain: Denies pain. EENT: No deficits noted. Neuro: No deficits noted. Level of Consciousness is awake, alert, obeys commands, Oriented to person, place, time, situation, Appropriate for age. Cardiovascular: Denies chest pain, Heart tones S1 S2 present. Respiratory: Reports shortness of breath on exertion Airway is patent Trachea midline Respiratory effort is even, unlabored, Respiratory pattern is regular, symmetrical, Breath sounds are clear bilaterally. Onset: The symptoms/episode began/occurred gradually, the patient has mild shortness of breath. GI: No signs and/or symptoms were reported involving the gastrointestinal system. : No signs and/or symptoms were reported regarding the genitourinary system. Derm: No signs and/or symptoms reported regarding the dermatologic system. Musculoskeletal: No signs and/or symptoms reported regarding the musculoskeletal system. Historical: - Allergies: 20:02 Codeine; bm8 20:02 Sulfa (Sulfonamide Antibiotics); bm8 20:02 tramadol; bm8 - Home Meds: 20:02 atorvastatin 20 mg Oral tab 1 tab once daily [Active]; Eliquis 5 mg Oral tab 1 tab bm8 [Active]; sotalol 80 mg Oral tab 1 tab 2 times per day [Active]; - PMHx: 20:02 Atrial fibrillation; CAD; Hyperlipidemia; Hypertension; Myocardial infarction; bm8 - PSHx: 20:02 Leg sx; bm8 - Immunization history:: Adult Immunizations unknown. - Infectious Disease History:: Denies. - Social history:: Smoking status: Patient denies any tobacco usage or history of. - Family history:: not pertinent. Screenin:04 [facility] ED Fall Risk Assessment (Adult) History of falling in the last 3 months, bm8 including since admission No falls in past 3 months (0 pts) Confusion or Disorientation No (0 pts) Intoxicated or Sedated No (0 pts) Impaired Gait No (0 pts) Mobility Assist Device Used No (0 pt) Altered Elimination No (0 pt) Score/Fall Risk Level 0 - 2 = Low Risk Oriented to surroundings, Maintained a safe environment, Educated pt \T\ family on fall prevention, incl call for assistance when getting out of bed, Assessed \T\ reinforced patient's understanding of fall precautions, Hourly rounding (assess needs \T\ fall precautionary measures) done, Used ambulatory aids as needed (educated on \T\ assisted with), Used gait belt as appropriate. Abuse screen: Denies threats or abuse. Nutritional screening: No deficits noted. Tuberculosis screening: No symptoms or risk factors identified. Assessment: 22:00 Reassessment: Patient appears in no apparent distress at this time. No changes from bm8 previously documented assessment. Patient and/or family updated on plan of care and expected duration. Pain level reassessed. Patient is alert, oriented x 3, equal unlabored respirations, skin warm/dry/pink. Patient denies pain at this time. Vital Signs: 19:58 BP 179 / 88; Pulse 76; Resp 16; Temp 98.2; Pulse Ox 94% ; Weight 99.79 kg; Height 5 ft. bm8 7 in. ; Pain 0/10; 22:00 BP 182 / 79; Pulse 78; Resp 18; Temp 98.2; Pulse Ox 95% on R/A; Pain 0/10; bm8 19:58 Body Mass Index 34.46 (99.79 kg, 170.18 cm) bm8 19:58 Pain Scale: Adult bm8 22:00 Pain Scale: Adult bm8 22:00 pt states that she will take her bp medication when she gets home bm8 Enriqueta Coma Score: 20:04 Eye Response: spontaneous(4). Motor Response: obeys commands(6). Verbal Response: bm8 oriented(5). Total: 15. ED Course: 19:02 Patient arrived in ED. mr 19:07 Deangelo Diaz MD is Attending Physician. sp4 19:44 Jean-Pierre Edward, RN is Primary Nurse. bm8 20:02 Triage completed. bm8 20:02 Arm band placed on right wrist. bm8 20:04 Patient has correct armband on for positive identification. Call light in reach. Client bm8 placed on continuous cardiac and pulse oximetry monitoring. NIBP monitoring applied. Pulse ox on. NIBP on. Door closed. Noise minimized. Warm blanket given. Pillow given. Verbal reassurance given. 20:04 No provider procedures requiring assistance completed. COVID swab sent to lab. bm8 22:00 Provided Education on: post er care. bm8 22:00 Patient did not have IV access during this emergency room visit. bm8 Administered Medications: 22:19 Drug: AZITHromycin PO 500 mg PO once Route: PO; bm8 22:25 Follow up: Response: No adverse reaction bm8 22:19 Drug: Dextromethorphan-Guaifenesin PO Liquid 10 mg-100 mg/5 mL 10 ml PO once Route: PO; bm8 22:25 Follow up: Response: No adverse reaction bm8 22:19 Drug: Acetaminophen PO 1000 mg PO once Route: PO; bm8 22:25 Follow up: Response: No adverse reaction bm8 Medication: 20:04 VIS not applicable for this client. bm8 Outcome: 22:19 Discharge ordered by . sp4 22:25 Discharged to home ambulatory, with family, bm8 22:25 Condition: stable 22:25 Discharge instructions given to patient, family, Instructed on discharge instructions, follow up and referral plans. Demonstrated understanding of instructions, follow-up care, Prescriptions given X 2, 22:26 Prescriptions given X bm8 22:34 Patient left the ED. bm8 Signatures: Svetlana Still, Reg Reg mr Deangelo Diaz MD MD sp4 Jean-Pierre Edward, RN RN bm8 Corrections: (The following items were deleted from the chart) 22:26 22:25 Discharge instructions given to patient, family, Instructed on discharge bm8 instructions, follow up and referral plans. Demonstrated understanding of instructions, follow-up care, Prescriptions given X bm8
[2024-02-29 23:07] VITALS: TEMP 98.2
[2024-02-29 23:08] VITALS: BP 182/79; O2SAT 95
== END 2024-02-29 22:34 | disposition home or self-care (01) ==
LOC: ER 19:00
DX: J20.9 Acute bronchitis, unspecified (principal); Z11.52 Encounter for screening for COVID-19; I10 Essential (primary) hypertension; I48.91 Unspecified atrial fibrillation; I25.2 Old myocardial infarction; Z79.01 Long term (current) use of anticoagulants
CPT/HCPCS: 36415; 87811; 99284

== ENCOUNTER 2025-03-27 11:36 | Emergency (ER) | payer OTHER ==
--- OUTSIDE RECORDS SUMMARY | 2025-03-27 11:41 | XMS REPORT | Continuity of Care Document ---
Author Name Unknown Address [address] [facility] [address] [place] [address] [facility] Address [address] [facility] [address] [place] [address] Care Team Providers Care Cemetery Manager Name Role Phone Carlos RAYMUNDO, Katina Primary Care Physician [phone] AWA Attending Clinician Unavailable AWA Admitting Clinician Unavailable Allergies, Adverse Reactions, Alerts Allergy Name Allergy Type Status Severity Reaction(s) Onset Date Inactive Date Treating Clinician Comments Source geo Arellano ty to adverse reaction to drug Active 2023-07 00:00: 00 Michael Marin Medications Ordered Medication Name Filled Medication Name Start Date Stop Date Current Medication? Ordering Clinician Indication Dosage Frequency Signature (SIG) Comments Components Source cyclobenzap rine 10 mg tablet 03-09 00:00: 00 Yes 1mg Michael Marin diclofenac sodium 75 mg tablet,ephraim yed release 03-09 00:00: 00 Yes 1mg Michael Marin Anoro Ellipta 62.5 mcg-25 mcg/actuati on powder for inhalation 11-10 00:00: 00 Yes 1mcg/ac tuation Michael Marin furosemide 40 mg tablet -06 00:00: 00 Yes 1mg Michael Marin nystatin 100,000 unit/mL oral suspension 15 00:00: 00 Yes 5unit/m L Michael Marin Anoro Ellipta 62.5 mcg-25 mcg/actuati on powder for inhalation 14 00:00: 00 Yes 1mcg/ac tuation Michael Marin furosemide 40 mg tablet -08 00:00: 00 Yes 1mg Michael Marin arformotero l 15 mcg/2 mL solution for nebulizatio n 10-07 00:00: 00 Yes 1mcg/2 mL Michael Marin furosemide 40 mg tablet 10-07 00:00: 00 Yes 1mg Michael Marin oxybutynin chloride ER 10 mg tablet,exte nded release 24 hr 09-11 00:00: 00 Yes mg Michael Marin ipratropium 0.5 mg-albutero l 3 mg (2.5 mg base)/3 mL nebulizatio n soln 09-11 00:00: 00 Yes 30mg base)/3 mL Michael Marin albuterol sulfate HFA 90 mcg/actuati on aerosol inhaler 09-11 00:00: 00 Yes 1mcg/ac tuation Michael Marin atorvastati n 80 mg tablet 09-11 00:00: 00 Yes 1mg Michael Marin cetirizine 10 mg tablet 09-11 00:00: 00 Yes 1mg Michael Marin spironolact one 25 mg tablet 09-11 00:00: 00 Yes 1mg Michael Marin citalopram 20 mg tablet 09-11 00:00: 00 Yes 1mg Michael Marin amlodipine 10 mg tablet 09-11 00:00: 00 Yes 1mg Michael Marin Eliquis 5 mg tablet 09-11 00:00: 00 Yes 1mg Michael Marin Entresto 97 mg-103 mg tablet 09-11 00:00: 00 Yes 1mg Michael Marin spironolact one 25 mg tablet - 00:00: 00 Yes 1mg Michael Marin atorvastati n 80 mg tablet 2023-07 00:00: 00 Yes 1mg Michael Marin oxybutynin chloride ER 10 mg tablet,exte nded release 24 hr 2023-07 00:00: 00 Yes mg Michael Marin ipratropium 0.5 mg-albutero l 3 mg (2.5 mg base)/3 mL nebulizatio n soln 2023-07 00:00: 00 Yes 30mg base)/3 mL Michael Marin albuterol sulfate HFA 90 mcg/actuati on aerosol inhaler 2023-07 00:00: 00 Yes 1mcg/ac tuation Michael Marin atorvastati n 40 mg tablet 2023-07 00:00: 00 Yes 1mg Michael Marin cetirizine 10 mg tablet 2023-07 00:00: 00 Yes 1mg Michael Marin spironolact one 25 mg tablet 2023-07 00:00: 00 Yes 1mg Michael Marin citalopram 20 mg tablet 2023-07 00:00: 00 Yes 1mg Michael Marin amlodipine 10 mg tablet 2023-07 00:00: 00 Yes 1mg Michael Marin Eliquis 5 mg tablet 2023-07 00:00: 00 Yes 1mg Michael Marin Entresto 97 mg-103 mg tablet 2023-07 00:00: 00 Yes 1mg Michael Marin spironolact one 25 mg tablet 2023-07 00:00: 00 Yes 1mg Michael Marin oxybutynin chloride ER 10 mg tablet,exte nded release 24 hr 03-20 00:00: 00 Yes mg Michael Marin albuterol sulfate HFA 90 mcg/actuati on aerosol inhaler 03-20 00:00: 00 Yes 1mcg/ac tuation Michael Marin cetirizine 10 mg tablet 03-20 00:00: 00 Yes 1mg Michael Marin citalopram 20 mg tablet 03-20 00:00: 00 Yes 1mg Michael Marin amlodipine 10 mg tablet 03-20 00:00: 00 Yes 1mg Michael Marin atorvastati n 40 mg tablet 03-20 00:00: 00 Yes 1mg Michael Marin Eliquis 5 mg tablet 03-20 00:00: 00 Yes 1mg Michael Marin Entresto 97 mg-103 mg tablet 03-20 00:00: 00 Yes 1mg Michael Marin citalopram 20 mg tablet 2024-0 8-21 00:00: 00 Yes mg Michael Marin citalopram 20 mg tablet 5-20 00:00: 00 Yes mg Michael Marin amlodipine 5 mg tablet 4-16 00:00: 00 Yes mg Michael Marin ipratropium 0.5 mg-albutero l 3 mg (2.5 mg base)/3 mL nebulizatio n soln 3-26 00:00: 00 Yes 30mg base)/3 mL Michael Marin ipratropium 0.5 mg-albutero l 3 mg (2.5 mg base)/3 mL nebulizatio n soln 3-19 00:00: 00 Yes 1mg base)/3 mL Michael Marin TAKE 1 TABLET BY MOUTH ONCE DAILY 1-04 00:00: 00 Yes Michael Marin SPIRONOLACT ONE 25 MG 2022-07 0 00:00: 00 Yes Michael Marin ALBUTEROL HFA 90 MCG INHALER 01-29 00:00: 00 Yes Michael Marin INHALE 1-2 PUFFS EVERY 4-6 HOURS NEEDED AND DIRECTED. 01-29 00:00: 00 10-02 00:00 :00 No [id number] Michael Marin 1 TABLET PO QD 01-28 00:00: 00 Yes 10 Michael Marin 1 TAB PO BID 12-31 00:00: 00 10-02 00:00 :00 No 100 Michael Marin TAKE 1 TABLET DAILY. 12-28 00:00: 00 Yes 20 Michael Marin TAKE 1 TABLET BY MOUTH TWICE A DAY 12-28 00:00: 00 Yes [id number] Michael Marin 1 TAB PO BID 12-28 00:00: 00 Yes 5 Michael Marin TAKE 1 TABLET DAILY. 12-28 00:00: 00 Yes 40 Michael Marin 1 OR 2 TABS PO QD PRN FOR PEDAL EDEMA 12-28 00:00: 00 10-02 00:00 :00 No 20 Michael Marin TAKE 1 TABLET DAILY. 12-28 00:00: 00 10-02 00:00 :00 No 5 Michael Marin TAKE 1 TABLET EVERY MORNING NEEDED. 12-28 00:00: 00 10-02 00:00 :00 No 10 Michael Marin INHALE 1 PUFF EVERY 4 HOURS NEEDED. 12-28 00:00: 00 10-02 00:00 :00 No 45 Michael Marin FUROSEMIDE 40 MG 04-05 00:00: 00 Yes 40 Michael Marin TAKE 1 TABLET BY MOUTH ONCE DAILY 04-05 00:00: 00 10-02 00:00 :00 No Michael Marin ENTRESTO 97 MG-103 MG 8-15 00:00: 00 10-02 00:00 :00 No [id number] Michael Marin ENTRESTO 49 MG-51 MG 7-25 00:00: 00 Yes [id number] Michael Marin TAKE 1 TABLET BY MOUTH TWICE DAILY 12-25 00:00: 00 Yes Michael Marin INHALE 1 PUFF INTO LUNGS EVERY 4 HOURS NEEDED ( SHORT ACTING RESCUE INHALER FOR ASTHMA ) 12-25 00:00: 00 10-02 00:00 :00 No Michael Marin Immunizations Ordered Immunization Name Filled Immunization Name Date Status Comments Source Moderna COVID-19 Vaccine Moderna COVID-19 Vaccine 2021-06-06 00:00:00 Completed Michael Marin Moderna COVID-19 Vaccine Moderna COVID-19 Vaccine 2020-10-14 00:00:00 Completed Michael Marin Moderna COVID-19 Vaccine Moderna COVID-19 Vaccine 2020-09-14 00:00:00 Completed Michael Marin Vital Signs Vital Name Observation Time Observation Value Comments S debbie BP Systolic 2025-03-09 10:42:00 174 mm[Hg] Bhavesh Marin BP Diastolic 2025-03-09 10:42:00 66 mm[Hg] Romie porras Indio Marin Weight Measured 2025-03-09 10:42:00 240.00 pounds Michaeldara Marin Height Measured 2025-03-09 10:42:00 66.50 inches Michael F Tomas Body Temperature 2025-03-09 10:42:00 97.70 degrees Michael F Tomas Heart Rate 2025-03-09 10:42:00 74.00 /min Lee Ann en F Tomas Respiratory Rate 2025-03-09 10:42:00 18.00 /min Michael F Tomas BP Systolic 2024-12-23 10:27:00 138 mm[Hg] Step hen F Tomas BP Diastolic 2024-12-23 10:27:00 76 mm[Hg] Romie phen F Tomas Weight Measured 2024-12-23 10:27:00 241.00 pounds Michael F Tomas Height Measured 2024-12-23 10:27:00 66.50 inches Michael F Tomas Body Temperature 2024-12-23 10:27:00 98.10 degrees Michael F Tomas Heart Rate 2024-12-23 10:27:00 82.00 /min Lee Ann en F Tomas Respiratory Rate 2024-12-23 10:27:00 16.00 /min Michael F Tomas BP Systolic 2024-11-05 10:12:00 138 mm[Hg] Step hen F Tomas BP Diastolic 2024-11-05 10:12:00 70 mm[Hg] Romie phen F Tomas Weight Measured 2024-11-05 10:12:00 239.80 pounds Michael F Tomas Height Measured 2024-11-05 10:12:00 66.50 inches Michael F Tomas Body Temperature 2024-11-05 10:12:00 97.90 degrees Mihcael F Tomas Heart Rate 2024-11-05 10:12:00 66.00 /min Lee Ann en F Tomas Respiratory Rate 2024-11-05 10:12:00 Michael F Tomas BP Systolic 2024-10-07 10:41:00 134 mm[Hg] Step hen F Tomas BP Diastolic 2024-10-07 10:41:00 74 mm[Hg] Romie phen F Tomas Weight Measured 2024-10-07 10:41:00 238.20 pounds Michael F Tomas Height Measured 2024-10-07 10:41:00 66.50 inches Michael F Tomas Body Temperature 2024-10-07 10:41:00 97.50 degrees Michael F Tomas Heart Rate 2024-10-07 10:41:00 65.00 /min Lee Ann en F Tomas Respiratory Rate 2024-10-07 10:41:00 Michael F Tomas BP Systolic 2024-09-16 11:37:00 132 mm[Hg] Step hen F Tomas BP Diastolic 2024-09-16 11:37:00 84 mm[Hg] Romie phen F Tomas Weight Measured 2024-09-16 11:37:00 234.00 pounds Michael F Tomas Height Measured 2024-09-16 11:37:00 66.50 inches Michael F Tomas Body Temperature 2024-09-16 11:37:00 Michael F Tomas Heart Rate 2024-09-16 11:37:00 Lee Ann en F Tomas Respiratory Rate 2024-09-16 11:37:00 Michael F Tomas BP Systolic 2024-09-11 10:50:00 138 mm[Hg] Step hen F Tomas BP Diastolic 2024-09-11 10:50:00 76 mm[Hg] Romie phen F Tomas Weight Measured 2024-09-11 10:50:00 237.00 pounds Michael F Tomas Height Measured 2024-09-11 10:50:00 66.50 inches Michael F Tomas Body Temperature 2024-09-11 10:50:00 98.50 degrees Michael F Tomas Heart Rate 2024-09-11 10:50:00 70.00 /min Lee Ann en F Tomas Respiratory Rate 2024-09-11 10:50:00 20.00 /min Michael F Tomas BP Systolic 2024-05-25 09:21:00 136 mm[Hg] Step hen F Tomas BP Diastolic 2024-05-25 09:21:00 88 mm[Hg] Romie phen F Tomas Weight Measured 2024-05-25 09:21:00 236.00 pounds Michael F Tomas Height Measured 2024-05-25 09:21:00 66.50 inches Michael F Tomas Body Temperature 2024-05-25 09:21:00 96.80 degrees Michael F Tomas Heart Rate 2024-05-25 09:21:00 69.00 /min Lee Ann en F Tomas Respiratory Rate 2024-05-25 09:21:00 18.00 /min Michael F Tomas Body Temperature 2024-03-20 11:09:00 97.90 degrees Michael F Tomas Heart Rate 2024-03-20 11:09:00 77.00 /min Lee Ann en F Tomas Respiratory Rate 2024-03-20 11:09:00 20.00 /min Michael F Tomas BP Systolic 2024-03-20 11:09:00 130 mm[Hg] Step hen F Tomas BP Diastolic 2024-03-20 11:09:00 88 mm[Hg] Romie phen F Tomas Weight Measured 2024-03-20 11:09:00 241.00 pounds Michael F Tomas Height Measured 2024-03-20 11:09:00 66.50 inches Michael F Tomas BP Systolic 2023-01-28 09:54:00 136 mm[Hg] Step hen F Tomas BP Diastolic 2023-01-28 09:54:00 74 mm[Hg] Romie phen F Tomas Weight Measured 2023-01-28 09:54:00 237.00 pounds Michael F Tomas Height Measured 2023-01-28 09:54:00 66.50 inches Michael F Tomas Body Temperature 2023-01-28 09:54:00 97.40 degrees Michael F Tomas Heart Rate 2023-01-28 09:54:00 81.00 /min Lee Ann en F Tomas Respiratory Rate 2023-01-28 09:54:00 20.00 /min Michael F Tomas BP Systolic 2022-12-31 11:33:00 Step hen F Tomas BP Diastolic 2022-12-31 11:33:00 Romie phen F Tomas Weight Measured 2022-12-31 11:33:00 234.00 pounds Michael F Tomas Height Measured 2022-12-31 11:33:00 66.50 inches Michael F Tomas Body Temperature 2022-12-31 11:33:00 Michael F Tomas Heart Rate 2022-12-31 11:33:00 Lee Ann en F Tomas Respiratory Rate 2022-12-31 11:33:00 Michael F Tomas BP Systolic 2022-12-28 08:53:00 150 mm[Hg] Step hen F Tomas BP Diastolic 2022-12-28 08:53:00 76 mm[Hg] Romie phen F Tomas Weight Measured 2022-12-28 08:53:00 234.00 pounds Michael F Tomas Height Measured 2022-12-28 08:53:00 66.50 inches Michael F Tomas Body Temperature 2022-12-28 08:53:00 97.60 degrees Michael Marin Heart Rate 2022-12-28 08:53:00 73.00 /min Lee Ann Marin Respiratory Rate 2022-12-28 08:53:00 18.00 /min Michael Marin Encounters Start Date/Time End Date/Time Encounter Type Admission Type Attending [facility] Care Department Encounter ID Source 2025-03-15 09:57:44 2025-03-15 09:57:44 Outpatient SFA SFA [id number] Michael Marin 2025-03-10 17:06:03 2025-03-10 17:06:03 Outpatient SFA SFA [id number] Michael Marin 2025-03-09 10:31:40 2025-03-09 10:31:40 Outpatient SFA [id number] [id number] Michael Marin 2025-03-09 00:00:00 2025-03-09 00:00:00 Outpatient Visit SFA [id number] Michael Marin 2024-12-25 09:17:16 2024-12-25 09:17:16 Outpatient SFA SFA [id number] Michael Marin 2024-12-23 10:15:15 2024-12-23 10:15:15 Outpatient SFA SFA [id number] Michael Marin 2024-12-23 00:00:00 2024-12-23 00:00:00 Outpatient Visit SFA [id number] Michael Marin 2024-11-05 10:10:47 2024-11-05 10:10:47 Outpatient SFA SFA [id number] Michael Marin 2024-11-05 00:00:00 2024-11-05 00:00:00 Outpatient Visit SFA [id number] Michael Marin 2024-10-19 16:09:21 2024-10-19 16:09:21 Outpatient SFA SFA [id number] Michael Marin 2024-10-07 10:38:15 2024-10-07 10:38:15 Outpatient SFA SFA [id number] Michael Marin 2024-10-07 00:00:00 2024-10-07 00:00:00 Outpatient Visit SFA SFA [id number] Michael Marin 2024-09-16 11:20:31 2024-09-16 11:20:31 Outpatient SFA SFA [id number] Michael Marin 2024-09-16 00:00:00 2024-09-16 00:00:00 Outpatient Visit SFA [id number] Michael Marin 2024-09-11 10:50:11 2024-09-11 10:50:11 Outpatient SFA SFA [id number] Michael Marin 2024-09-11 00:00:00 2024-09-11 00:00:00 Outpatient Visit SFA [id number] Michael Marin 2024-05-25 09:12:04 2024-05-25 09:12:04 Outpatient SFA [id number] [id number] Michael Marin 2024-05-25 00:00:00 2024-05-25 00:00:00 Outpatient Visit SFA [id number] Michael Marin 2024-03-20 11:07:17 2024-03-20 11:07:17 Outpatient SFA SFA [id number] Michael Marin 2024-03-20 00:00:00 2024-03-20 00:00:00 Outpatient Visit SFA [id number] Michael Marin 2023-01-28 09:38:13 2023-01-28 09:38:13 Outpatient SFA SFA [id number] Michael Marin 2022-12-28 08:51:48 2022-12-28 08:51:48 Outpatient [facility] [id number] Michael Marin Results Test Description Test Time Test Comments Results Result Co mments Source Michael Borjas AustinURINALYSIS W/REFLEX [id number] 00:00:00* Test Item Value Reference Range Interpretation Comme nts COLOR (test code = 1501) TEST NOT PERFORMED APPEARANCE (test code = 1502) TEST NOT PERFORMED SPECIFIC GRAVITY (test code = 1503) TEST NOT PERFORMED LEUKOCYTE ESTERASE (test code = 1504) TEST NOT PERFORMED NITRITE (test code = 1505) TEST NOT PERFORMED pH (test code = 1506) TEST NOT PERFORMED PROTEIN (test code = 1507) TEST NOT PERFORMED GLUCOSE (test code = 1508) TEST NOT PERFORMED KETONES (test code = 1509) TEST NOT PERFORMED UROBILINOGEN (test code = 1510) TEST NOT PERFORMED MG/DL BILIRUBIN (test code = 1511) TEST NOT PERFORMED OCCULT BLOOD (test code = 1512) TEST NOT PERFORMED Michael Borjas AustinURINALYSIS W/REFLEX [id number] 00:00:00* Test Item Value Reference Range Interpretation Comme nts COLOR (test code = 1501) TEST NOT PERFORMED APPEARANCE (test code = 1502) TEST NOT PERFORMED SPECIFIC GRAVITY (test code = 1503) TEST NOT PERFORMED LEUKOCYTE ESTERASE (test code = 1504) TEST NOT PERFORMED NITRITE (test code = 1505) TEST NOT PERFORMED pH (test code = 1506) TEST NOT PERFORMED PROTEIN (test code = 1507) TEST NOT PERFORMED GLUCOSE (test code = 1508) TEST NOT PERFORMED KETONES (test code = 1509) TEST NOT PERFORMED UROBILINOGEN (test code = 1510) TEST NOT PERFORMED MG/DL BILIRUBIN (test code = 1511) TEST NOT PERFORMED OCCULT BLOOD (test code = 1512) TEST NOT PERFORMED Michael Borjas AustinURINALYSIS W/REFLEX [id number] 00:00:00* Test Item Value Reference Range Interpretation Comme nts COLOR (test code = 1501) TEST NOT PERFORMED APPEARANCE (test code = 1502) TEST NOT PERFORMED SPECIFIC GRAVITY (test code = 1503) TEST NOT PERFORMED LEUKOCYTE ESTERASE (test code = 1504) TEST NOT PERFORMED NITRITE (test code = 1505) TEST NOT PERFORMED pH (test code = 1506) TEST NOT PERFORMED PROTEIN (test code = 1507) TEST NOT PERFORMED GLUCOSE (test code = 1508) TEST NOT PERFORMED KETONES (test code = 1509) TEST NOT PERFORMED UROBILINOGEN (test code = 1510) TEST NOT PERFORMED MG/DL BILIRUBIN (test code = 1511) TEST NOT PERFORMED OCCULT BLOOD (test code = 1512) TEST NOT PERFORMED Michael F AustinURINALYSIS W/REFLEX [id number] 00:00:00* Test Item Value Reference Range Interpretation Comme nts COLOR (test code = 1501) TEST NOT PERFORMED APPEARANCE (test code = 1502) TEST NOT PERFORMED SPECIFIC GRAVITY (test code = 1503) TEST NOT PERFORMED LEUKOCYTE ESTERASE (test code = 1504) TEST NOT PERFORMED NITRITE (test code = 1505) TEST NOT PERFORMED pH (test code = 1506) TEST NOT PERFORMED PROTEIN (test code = 1507) TEST NOT PERFORMED GLUCOSE (test code = 1508) TEST NOT PERFORMED KETONES (test code = 1509) TEST NOT PERFORMED UROBILINOGEN (test code = 1510) TEST NOT PERFORMED MG/DL BILIRUBIN (test code = 1511) TEST NOT PERFORMED OCCULT BLOOD (test code = 1512) TEST NOT PERFORMED Michael F AustinURINALYSIS W/REFLEX [id number] 00:00:00* Test Item Value Reference Range Interpretation Comme nts COLOR (test code = 1501) TEST NOT PERFORMED APPEARANCE (test code = 1502) TEST NOT PERFORMED SPECIFIC GRAVITY (test code = 1503) TEST NOT PERFORMED LEUKOCYTE ESTERASE (test code = 1504) TEST NOT PERFORMED NITRITE (test code = 1505) TEST NOT PERFORMED pH (test code = 1506) TEST NOT PERFORMED PROTEIN (test code = 1507) TEST NOT PERFORMED GLUCOSE (test code = 1508) TEST NOT PERFORMED KETONES (test code = 1509) TEST NOT PERFORMED UROBILINOGEN (test code = 1510) TEST NOT PERFORMED MG/DL BILIRUBIN (test code = 1511) TEST NOT PERFORMED OCCULT BLOOD (test code = 1512) TEST NOT PERFORMED Michael F AustinCBC W/AUTO [id number] 00:00:00* Test Item Value Reference Range Interpretation Comme nts WBC (test code = 1001) 6.7 K/UL RBC (test code = 1002) 5.02 M/UL HEMOGLOBIN (test code = 1003) 13.8 G/DL HEMATOCRIT (test code = 1004) 42.7 % MCV (test code = 1005) 85.1 fL MCH (test code = 1006) 27.5 PG MCHC (test code = 1007) 32.3 G/DL RDW (test code = 1038) 14.9 % NEUTROPHILS (test code = 1008) 62.5 % LYMPHOCYTES (test code = 1010) 24.6 % MONOCYTES (test code = 1011) 10.3 % EOSINOPHILS (test code = 1012) 2.1 % BASOPHILS (test code = 1013) 0.4 % IMMATURE GRANULOCYTES (test code = 1036) 0.1 % NUCLEATED RBCS (test code = 1065) 0.0 /100WBC'S PLATELET COUNT (test code = 1015) 263 K/UL ABSOLUTE NEUTROPHILS (test c ode = 1066) 4.17 K/UL ABSOLUTE LYMPHOCYTES (test c ode = 1067) 1.64 K/UL ABSOLUTE MONOCYTES (test cod e = 1068) 0.69 K/UL ABSOLUTE EOSINOPHILS (test c ode = 1040) 0.14 K/UL ABSOLUTE BASOPHILS (test cod e = 1069) 0.03 K/UL ABS IMMATURE GRANULOCYTES (t est code = 1020) 0.01 K/UL ABS NUCLEATED RBCS (test cod e = 88482) 0.00 K/UL Michael MarinCOMPREHENSIVE METABOLIC [id number] 00:00:00* Test Item Value Reference Range Interpretation Comme nts GLUCOSE (test code = 2217) 80 MG/DL BUN (test code = 2208) 8 MG/DL CREATININE (test code = 2214) 0.94 MG/DL eGFR (2020 CKD-EPI) (test co de = 44464) 68 ML/MIN/1.73 CALC BUN/CREAT (test code = 2235) 9 RATIO SODIUM (test code = 2231) 143 MEQ/L POTASSIUM (test code = 2228) 3.9 MEQ/L CHLORIDE (test code = 2215) 103 MEQ/L CARBON DIOXIDE (test code = 2206) 28 MEQ/L CALCIUM (test code = 2209) 9.3 MG/DL PROTEIN, TOTAL (test code = 2229) 7.4 G/DL ALBUMIN (test code = 2201) 4.4 G/DL CALC GLOBULIN (test code = 2240) 3.0 G/DL CALC A/G RATIO (test code = 2234) 1.5 RATIO BILIRUBIN, TOTAL (test code = 2207) 0.4 MG/DL ALKALINE PHOSPHATASE (test code = 2204) 112 U/L AST (test code = 2218) 14 U/L ALT (test code = 2219) 13 U/L Michael MarinLIPID [id number] 00:00:00* Test Item Value Reference Range Interpretation Comme nts CHOLESTEROL (test code = 2210) 210 MG/DL TRIGLYCERIDES (test code = 2232) 70 MG/DL HDL CHOLESTEROL (test code = 2220) 54 MG/DL CALC LDL CHOL (test code = 2237) 140 MG/DL RISK RATIO LDL/HDL (test cod e = 2238) 2.59 RATIO Michael MarinCBC W/AUTO [id number] 00:00:00* Test Item Value Reference Range Interpretation Comme nts WBC (test code = 1001) 6.7 K/UL RBC (test code = 1002) 5.02 M/UL HEMOGLOBIN (test code = 1003) 13.8 G/DL HEMATOCRIT (test code = 1004) 42.7 % MCV (test code = 1005) 85.1 fL MCH (test code = 1006) 27.5 PG MCHC (test code = 1007) 32.3 G/DL RDW (test code = 1038) 14.9 % NEUTROPHILS (test code = 1008) 62.5 % LYMPHOCYTES (test code = 1010) 24.6 % MONOCYTES (test code = 1011) 10.3 % EOSINOPHILS (test code = 1012) 2.1 % BASOPHILS (test code = 1013) 0.4 % IMMATURE GRANULOCYTES (test code = 1036) 0.1 % NUCLEATED RBCS (test code = 1065) 0.0 /100WBC'S PLATELET COUNT (test code = 1015) 263 K/UL ABSOLUTE NEUTROPHILS (test c ode = 1066) 4.17 K/UL ABSOLUTE LYMPHOCYTES (test c ode = 1067) 1.64 K/UL ABSOLUTE MONOCYTES (test cod e = 1068) 0.69 K/UL ABSOLUTE EOSINOPHILS (test c ode = 1040) 0.14 K/UL ABSOLUTE BASOPHILS (test cod e = 1069) 0.03 K/UL ABS IMMATURE GRANULOCYTES (t est code = 1020) 0.01 K/UL ABS NUCLEATED RBCS (test cod e = 83557) 0.00 K/UL Michael MarinCOMPREHENSIVE METABOLIC [id number] 00:00:00* Test Item Value Reference Range Interpretation Comme nts GLUCOSE (test code = 2217) 80 MG/DL BUN (test code = 2208) 8 MG/DL CREATININE (test code = 2214) 0.94 MG/DL eGFR (2020 CKD-EPI) (test co de = 03096) 68 ML/MIN/1.73 CALC BUN/CREAT (test code = 2235) 9 RATIO SODIUM (test code = 2231) 143 MEQ/L POTASSIUM (test code = 2228) 3.9 MEQ/L CHLORIDE (test code = 2215) 103 MEQ/L CARBON DIOXIDE (test code = 2206) 28 MEQ/L CALCIUM (test code = 2209) 9.3 MG/DL PROTEIN, TOTAL (test code = 2229) 7.4 G/DL ALBUMIN (test code = 2201) 4.4 G/DL CALC GLOBULIN (test code = 2240) 3.0 G/DL CALC A/G RATIO (test code = 2234) 1.5 RATIO BILIRUBIN, TOTAL (test code = 2207) 0.4 MG/DL ALKALINE PHOSPHATASE (test code = 2204) 112 U/L AST (test code = 2218) 14 U/L ALT (test code = 2219) 13 U/L Michael MarinLIPID [id number] 00:00:00* Test Item Value Reference Range Interpretation Comme nts CHOLESTEROL (test code = 2210) 210 MG/DL TRIGLYCERIDES (test code = 2232) 70 MG/DL HDL CHOLESTEROL (test code = 2220) 54 MG/DL CALC LDL CHOL (test code = 2237) 140 MG/DL RISK RATIO LDL/HDL (test cod e = 2238) 2.59 RATIO Michael MarinCBC W/AUTO [id number] 00:00:00* Test Item Value Reference Range Interpretation Comme nts WBC (test code = 1001) 6.7 K/UL RBC (test code = 1002) 5.02 M/UL HEMOGLOBIN (test code = 1003) 13.8 G/DL HEMATOCRIT (test code = 1004) 42.7 % MCV (test code = 1005) 85.1 fL MCH (test code = 1006) 27.5 PG MCHC (test code = 1007) 32.3 G/DL RDW (test code = 1038) 14.9 % NEUTROPHILS (test code = 1008) 62.5 % LYMPHOCYTES (test code = 1010) 24.6 % MONOCYTES (test code = 1011) 10.3 % EOSINOPHILS (test code = 1012) 2.1 % BASOPHILS (test code = 1013) 0.4 % IMMATURE GRANULOCYTES (test code = 1036) 0.1 % NUCLEATED RBCS (test code = 1065) 0.0 /100WBC'S PLATELET COUNT (test code = 1015) 263 K/UL ABSOLUTE NEUTROPHILS (test c ode = 1066) 4.17 K/UL ABSOLUTE LYMPHOCYTES (test c ode = 1067) 1.64 K/UL ABSOLUTE MONOCYTES (test cod e = 1068) 0.69 K/UL ABSOLUTE EOSINOPHILS (test c ode = 1040) 0.14 K/UL ABSOLUTE BASOPHILS (test cod e = 1069) 0.03 K/UL ABS IMMATURE GRANULOCYTES (t est code = 1020) 0.01 K/UL ABS NUCLEATED RBCS (test cod e = 79202) 0.00 K/UL Michael F TomasCOMPREHENSIVE METABOLIC [id number] 00:00:00* Test Item Value Reference Range Interpretation Comme nts GLUCOSE (test code = 2217) 80 MG/DL BUN (test code = 2208) 8 MG/DL CREATININE (test code = 2214) 0.94 MG/DL eGFR (2020 CKD-EPI) (test co de = 78261) 68 ML/MIN/1.73 CALC BUN/CREAT (test code = 2235) 9 RATIO SODIUM (test code = 2231) 143 MEQ/L POTASSIUM (test code = 2228) 3.9 MEQ/L CHLORIDE (test code = 2215) 103 MEQ/L CARBON DIOXIDE (test code = 2206) 28 MEQ/L CALCIUM (test code = 2209) 9.3 MG/DL PROTEIN, TOTAL (test code = 2229) 7.4 G/DL ALBUMIN (test code = 2201) 4.4 G/DL CALC GLOBULIN (test code = 2240) 3.0 G/DL CALC A/G RATIO (test code = 2234) 1.5 RATIO BILIRUBIN, TOTAL (test code = 2207) 0.4 MG/DL ALKALINE PHOSPHATASE (test code = 2204) 112 U/L AST (test code = 2218) 14 U/L ALT (test code = 2219) 13 U/L Michael MarinLIPID [id number] 00:00:00* Test Item Value Reference Range Interpretation Comme nts CHOLESTEROL (test code = 2210) 210 MG/DL TRIGLYCERIDES (test code = 2232) 70 MG/DL HDL CHOLESTEROL (test code = 2220) 54 MG/DL CALC LDL CHOL (test code = 2237) 140 MG/DL RISK RATIO LDL/HDL (test cod e = 2238) 2.59 RATIO Michael MarinCBC W/AUTO [id number] 00:00:00* Test Item Value Reference Range Interpretation Comme nts WBC (test code = 1001) 6.7 K/UL RBC (test code = 1002) 5.02 M/UL HEMOGLOBIN (test code = 1003) 13.8 G/DL HEMATOCRIT (test code = 1004) 42.7 % MCV (test code = 1005) 85.1 fL MCH (test code = 1006) 27.5 PG MCHC (test code = 1007) 32.3 G/DL RDW (test code = 1038) 14.9 % NEUTROPHILS (test code = 1008) 62.5 % LYMPHOCYTES (test code = 1010) 24.6 % MONOCYTES (test code = 1011) 10.3 % EOSINOPHILS (test code = 1012) 2.1 % BASOPHILS (test code = 1013) 0.4 % IMMATURE GRANULOCYTES (test code = 1036) 0.1 % NUCLEATED RBCS (test code = 1065) 0.0 /100WBC'S PLATELET COUNT (test code = 1015) 263 K/UL ABSOLUTE NEUTROPHILS (test c ode = 1066) 4.17 K/UL ABSOLUTE LYMPHOCYTES (test c ode = 1067) 1.64 K/UL ABSOLUTE MONOCYTES (test cod e = 1068) 0.69 K/UL ABSOLUTE EOSINOPHILS (test c ode = 1040) 0.14 K/UL ABSOLUTE BASOPHILS (test cod e = 1069) 0.03 K/UL ABS IMMATURE GRANULOCYTES (t est code = 1020) 0.01 K/UL ABS NUCLEATED RBCS (test cod e = 32346) 0.00 K/UL Michael MarinCOMPREHENSIVE METABOLIC [id number] 00:00:00* Test Item Value Reference Range Interpretation Comme nts GLUCOSE (test code = 2217) 80 MG/DL BUN (test code = 2208) 8 MG/DL CREATININE (test code = 2214) 0.94 MG/DL eGFR (2020 CKD-EPI) (test co de = 34271) 68 ML/MIN/1.73 CALC BUN/CREAT (test code = 2235) 9 RATIO SODIUM (test code = 2231) 143 MEQ/L POTASSIUM (test code = 2228) 3.9 MEQ/L CHLORIDE (test code = 2215) 103 MEQ/L CARBON DIOXIDE (test code = 2206) 28 MEQ/L CALCIUM (test code = 2209) 9.3 MG/DL PROTEIN, TOTAL (test code = 2229) 7.4 G/DL ALBUMIN (test code = 2201) 4.4 G/DL CALC GLOBULIN (test code = 2240) 3.0 G/DL CALC A/G RATIO (test code = 2234) 1.5 RATIO BILIRUBIN, TOTAL (test code = 2207) 0.4 MG/DL ALKALINE PHOSPHATASE (test code = 2204) 112 U/L AST (test code = 2218) 14 U/L ALT (test code = 2219) 13 U/L Michael MarinLIPID [id number] 00:00:00* Test Item Value Reference Range Interpretation Comme nts CHOLESTEROL (test code = 2210) 210 MG/DL TRIGLYCERIDES (test code = 2232) 70 MG/DL HDL CHOLESTEROL (test code = 2220) 54 MG/DL CALC LDL CHOL (test code = 2237) 140 MG/DL RISK RATIO LDL/HDL (test cod e = 2238) 2.59 RATIO Michael MarinCBC W/AUTO [id number] 00:00:00* Test Item Value Reference Range Interpretation Comme nts WBC (test code = 1001) 6.7 K/UL RBC (test code = 1002) 5.02 M/UL HEMOGLOBIN (test code = 1003) 13.8 G/DL HEMATOCRIT (test code = 1004) 42.7 % MCV (test code = 1005) 85.1 fL MCH (test code = 1006) 27.5 PG MCHC (test code = 1007) 32.3 G/DL RDW (test code = 1038) 14.9 % NEUTROPHILS (test code = 1008) 62.5 % LYMPHOCYTES (test code = 1010) 24.6 % MONOCYTES (test code = 1011) 10.3 % EOSINOPHILS (test code = 1012) 2.1 % BASOPHILS (test code = 1013) 0.4 % IMMATURE GRANULOCYTES (test code = 1036) 0.1 % NUCLEATED RBCS (test code = 1065) 0.0 /100WBC'S PLATELET COUNT (test code = 1015) 263 K/UL ABSOLUTE NEUTROPHILS (test c ode = 1066) 4.17 K/UL ABSOLUTE LYMPHOCYTES (test c ode = 1067) 1.64 K/UL ABSOLUTE MONOCYTES (test cod e = 1068) 0.69 K/UL ABSOLUTE EOSINOPHILS (test c ode = 1040) 0.14 K/UL ABSOLUTE BASOPHILS (test cod e = 1069) 0.03 K/UL ABS IMMATURE GRANULOCYTES (t est code = 1020) 0.01 K/UL ABS NUCLEATED RBCS (test cod e = 64737) 0.00 K/UL Michael MarinCOMPREHENSIVE METABOLIC [id number] 00:00:00* Test Item Value Reference Range Interpretation Comme nts GLUCOSE (test code = 2217) 80 MG/DL BUN (test code = 2208) 8 MG/DL CREATININE (test code = 2214) 0.94 MG/DL eGFR (2020 CKD-EPI) (test co de = 72177) 68 ML/MIN/1.73 CALC BUN/CREAT (test code = 2235) 9 RATIO SODIUM (test code = 2231) 143 MEQ/L POTASSIUM (test code = 2228) 3.9 MEQ/L CHLORIDE (test code = 2215) 103 MEQ/L CARBON DIOXIDE (test code = 2206) 28 MEQ/L CALCIUM (test code = 2209) 9.3 MG/DL PROTEIN, TOTAL (test code = 2229) 7.4 G/DL ALBUMIN (test code = 2201) 4.4 G/DL CALC GLOBULIN (test code = 2240) 3.0 G/DL CALC A/G RATIO (test code = 2234) 1.5 RATIO BILIRUBIN, TOTAL (test code = 2207) 0.4 MG/DL ALKALINE PHOSPHATASE (test code = 2204) 112 U/L AST (test code = 2218) 14 U/L ALT (test code = 2219) 13 U/L Michael MarinLIPID [id number] 00:00:00* Test Item Value Reference Range Interpretation Comme nts CHOLESTEROL (test code = 2210) 210 MG/DL TRIGLYCERIDES (test code = 2232) 70 MG/DL HDL CHOLESTEROL (test code = 2220) 54 MG/DL CALC LDL CHOL (test code = 2237) 140 MG/DL RISK RATIO LDL/HDL (test cod e = 2238) 2.59 RATIO Michael MarinCBC W/AUTO [id number] 00:00:00* Test Item Value Reference Range Interpretation Comme nts WBC (test code = 1001) 6.7 K/UL RBC (test code = 1002) 5.02 M/UL HEMOGLOBIN (test code = 1003) 13.8 G/DL HEMATOCRIT (test code = 1004) 42.7 % MCV (test code = 1005) 85.1 fL MCH (test code = 1006) 27.5 PG MCHC (test code = 1007) 32.3 G/DL RDW (test code = 1038) 14.9 % NEUTROPHILS (test code = 1008) 62.5 % LYMPHOCYTES (test code = 1010) 24.6 % MONOCYTES (test code = 1011) 10.3 % EOSINOPHILS (test code = 1012) 2.1 % BASOPHILS (test code = 1013) 0.4 % IMMATURE GRANULOCYTES (test code = 1036) 0.1 % NUCLEATED RBCS (test code = 1065) 0.0 /100WBC'S PLATELET COUNT (test code = 1015) 263 K/UL ABSOLUTE NEUTROPHILS (test c ode = 1066) 4.17 K/UL ABSOLUTE LYMPHOCYTES (test c ode = 1067) 1.64 K/UL ABSOLUTE MONOCYTES (test cod e = 1068) 0.69 K/UL ABSOLUTE EOSINOPHILS (test c ode = 1040) 0.14 K/UL ABSOLUTE BASOPHILS (test cod e = 1069) 0.03 K/UL ABS IMMATURE GRANULOCYTES (t est code = 1020) 0.01 K/UL ABS NUCLEATED RBCS (test cod e = 48452) 0.00 K/UL Michael MarinCOMPREHENSIVE METABOLIC [id number] 00:00:00* Test Item Value Reference Range Interpretation Comme nts GLUCOSE (test code = 2217) 80 MG/DL BUN (test code = 2208) 8 MG/DL CREATININE (test code = 2214) 0.94 MG/DL eGFR (2020 CKD-EPI) (test co de = 47853) 68 ML/MIN/1.73 CALC BUN/CREAT (test code = 2235) 9 RATIO SODIUM (test code = 2231) 143 MEQ/L POTASSIUM (test code = 2228) 3.9 MEQ/L CHLORIDE (test code = 2215) 103 MEQ/L CARBON DIOXIDE (test code = 2206) 28 MEQ/L CALCIUM (test code = 2209) 9.3 MG/DL PROTEIN, TOTAL (test code = 2229) 7.4 G/DL ALBUMIN (test code = 2201) 4.4 G/DL CALC GLOBULIN (test code = 2240) 3.0 G/DL CALC A/G RATIO (test code = 2234) 1.5 RATIO BILIRUBIN, TOTAL (test code = 2207) 0.4 MG/DL ALKALINE PHOSPHATASE (test code = 2204) 112 U/L AST (test code = 2218) 14 U/L ALT (test code = 2219) 13 U/L Michael MarinLIPID [id number] 00:00:00* Test Item Value Reference Range Interpretation Comme nts CHOLESTEROL (test code = 2210) 210 MG/DL TRIGLYCERIDES (test code = 2232) 70 MG/DL HDL CHOLESTEROL (test code = 2220) 54 MG/DL CALC LDL CHOL (test code = 2237) 140 MG/DL RISK RATIO LDL/HDL (test cod e = 2238) 2.59 RATIO Michael MarinCBC W/AUTO [id number] 00:00:00* Test Item Value Reference Range Interpretation Comme nts WBC (test code = 1001) 8.5 K/UL RBC (test code = 1002) 5.17 M/UL HEMOGLOBIN (test code = 1003) 13.5 G/DL HEMATOCRIT (test code = 1004) 43.3 % MCV (test code = 1005) 83.8 fL MCH (test code = 1006) 26.1 PG MCHC (test code = 1007) 31.2 G/DL RDW (test code = 1038) 14.5 % NEUTROPHILS (test code = 1008) 60.2 % LYMPHOCYTES (test code = 1010) 26.4 % MONOCYTES (test code = 1011) 10.7 % EOSINOPHILS (test code = 1012) 2.1 % BASOPHILS (test code = 1013) 0.4 % IMMATURE GRANULOCYTES (test code = 1036) 0.2 % NUCLEATED RBCS (test code = 1065) 0.0 /100WBC'S PLATELET COUNT (test code = 1015) 281 K/UL ABSOLUTE NEUTROPHILS (test c ode = 1066) 5.13 K/UL ABSOLUTE LYMPHOCYTES (test c ode = 1067) 2.25 K/UL ABSOLUTE MONOCYTES (test cod e = 1068) 0.91 K/UL ABSOLUTE EOSINOPHILS (test c ode = 1040) 0.18 K/UL ABSOLUTE BASOPHILS (test cod e = 1069) 0.03 K/UL ABS IMMATURE GRANULOCYTES (t est code = 1020) 0.02 K/UL ABS NUCLEATED RBCS (test cod e = 00638) 0.00 K/UL Michael Borjas AustinLIPID [id number] 00:00:00* Test Item Value Reference Range Interpretation Comme nts CHOLESTEROL (test code = 2210) 212 MG/DL TRIGLYCERIDES (test code = 2232) 69 MG/DL HDL CHOLESTEROL (test code = 2220) 60 MG/DL CALC LDL CHOL (test code = 2237) 136 MG/DL RISK RATIO LDL/HDL (test cod e = 2238) 2.27 RATIO Michael MarinCOMPREHENSIVE METABOLIC [id number] 00:00:00* Test Item Value Reference Range Interpretation Comme nts GLUCOSE (test code = 2217) 75 MG/DL BUN (test code = 2208) 9 MG/DL CREATININE (test code = 2214) 0.87 MG/DL eGFR (2020 CKD-EPI) (test co de = 33677) 75 ML/MIN/1.73 CALC BUN/CREAT (test code = 2235) 10 RATIO SODIUM (test code = 2231) 140 MEQ/L POTASSIUM (test code = 2228) 4.7 MEQ/L CHLORIDE (test code = 2215) 100 MEQ/L CARBON DIOXIDE (test code = 2206) 25 MEQ/L CALCIUM (test code = 2209) 9.7 MG/DL PROTEIN, TOTAL (test code = 2229) 7.7 G/DL ALBUMIN (test code = 2201) 4.7 G/DL CALC GLOBULIN (test code = 2240) 3.0 G/DL CALC A/G RATIO (test code = 2234) 1.6 RATIO BILIRUBIN, TOTAL (test code = 2207) 0.4 MG/DL ALKALINE PHOSPHATASE (test code = 2204) 124 U/L AST (test code = 2218) 17 U/L ALT (test code = 2219) 11 U/L Michael Borjas AustinURINALYSIS W/REFLEX [id number] 00:00:00* Test Item Value Reference Range Interpretation Comme nts COLOR (test code = 1501) YELLOW APPEARANCE (test code = 1502) CLEAR SPECIFIC GRAVITY (test code = 1503) 1.013 LEUKOCYTE ESTERASE (test cod e = 1504) 1+ NITRITE (test code = 1505) POSITIVE pH (test code = 1506) 6.5 PROTEIN (test code = 1507) NEGATIVE GLUCOSE (test code = 1508) NEGATIVE KETONES (test code = 1509) NEGATIVE UROBILINOGEN (test code = 1510) 1.0 MG/DL BILIRUBIN (test code = 1511) NEGATIVE OCCULT BLOOD (test code = 1512) NEGATIVE WHITE BLOOD CELLS (test code = 1513) 6-10 /HPF RED BLOOD CELLS (test code = 1514) 3-5 /HPF EPITHELIAL CELLS (test code = 30529) 6-10 /HPF BACTERIA (test code = 1515) 3+ CASTS, HYALINE (test code = 1517) TRACE Michael MarinCBC W/AUTO [id number] 00:00:00* Test Item Value Reference Range Interpretation Comme nts WBC (test code = 1001) 8.5 K/UL RBC (test code = 1002) 5.17 M/UL HEMOGLOBIN (test code = 1003) 13.5 G/DL HEMATOCRIT (test code = 1004) 43.3 % MCV (test code = 1005) 83.8 fL MCH (test code = 1006) 26.1 PG MCHC (test code = 1007) 31.2 G/DL RDW (test code = 1038) 14.5 % NEUTROPHILS (test code = 1008) 60.2 % LYMPHOCYTES (test code = 1010) 26.4 % MONOCYTES (test code = 1011) 10.7 % EOSINOPHILS (test code = 1012) 2.1 % BASOPHILS (test code = 1013) 0.4 % IMMATURE GRANULOCYTES (test code = 1036) 0.2 % NUCLEATED RBCS (test code = 1065) 0.0 /100WBC'S PLATELET COUNT (test code = 1015) 281 K/UL ABSOLUTE NEUTROPHILS (test c ode = 1066) 5.13 K/UL ABSOLUTE LYMPHOCYTES (test c ode = 1067) 2.25 K/UL ABSOLUTE MONOCYTES (test cod e = 1068) 0.91 K/UL ABSOLUTE EOSINOPHILS (test c ode = 1040) 0.18 K/UL ABSOLUTE BASOPHILS (test cod e = 1069) 0.03 K/UL ABS IMMATURE GRANULOCYTES (t est code = 1020) 0.02 K/UL ABS NUCLEATED RBCS (test cod e = 02487) 0.00 K/UL Michael Borjas AustinLIPID [id number] 00:00:00* Test Item Value Reference Range Interpretation Comme nts CHOLESTEROL (test code = 2210) 212 MG/DL TRIGLYCERIDES (test code = 2232) 69 MG/DL HDL CHOLESTEROL (test code = 2220) 60 MG/DL CALC LDL CHOL (test code = 2237) 136 MG/DL RISK RATIO LDL/HDL (test cod e = 2238) 2.27 RATIO Michael MarinCOMPREHENSIVE METABOLIC [id number] 00:00:00* Test Item Value Reference Range Interpretation Comme nts GLUCOSE (test code = 2217) 75 MG/DL BUN (test code = 2208) 9 MG/DL CREATININE (test code = 2214) 0.87 MG/DL eGFR (2020 CKD-EPI) (test co de = 95503) 75 ML/MIN/1.73 CALC BUN/CREAT (test code = 2235) 10 RATIO SODIUM (test code = 2231) 140 MEQ/L POTASSIUM (test code = 2228) 4.7 MEQ/L CHLORIDE (test code = 2215) 100 MEQ/L CARBON DIOXIDE (test code = 2206) 25 MEQ/L CALCIUM (test code = 2209) 9.7 MG/DL PROTEIN, TOTAL (test code = 2229) 7.7 G/DL ALBUMIN (test code = 2201) 4.7 G/DL CALC GLOBULIN (test code = 2240) 3.0 G/DL CALC A/G RATIO (test code = 2234) 1.6 RATIO BILIRUBIN, TOTAL (test code = 2207) 0.4 MG/DL ALKALINE PHOSPHATASE (test code = 2204) 124 U/L AST (test code = 2218) 17 U/L ALT (test code = 2219) 11 U/L Michael MarinURINALYSIS W/REFLEX [id number] 00:00:00* Test Item Value Reference Range Interpretation Comme nts COLOR (test code = 1501) YELLOW APPEARANCE (test code = 1502) CLEAR SPECIFIC GRAVITY (test code = 1503) 1.013 LEUKOCYTE ESTERASE (test cod e = 1504) 1+ NITRITE (test code = 1505) POSITIVE pH (test code = 1506) 6.5 PROTEIN (test code = 1507) NEGATIVE GLUCOSE (test code = 1508) NEGATIVE KETONES (test code = 1509) NEGATIVE UROBILINOGEN (test code = 1510) 1.0 MG/DL BILIRUBIN (test code = 1511) NEGATIVE OCCULT BLOOD (test code = 1512) NEGATIVE WHITE BLOOD CELLS (test code = 1513) 6-10 /HPF RED BLOOD CELLS (test code = 1514) 3-5 /HPF EPITHELIAL CELLS (test code = 55322) 6-10 /HPF BACTERIA (test code = 1515) 3+ CASTS, HYALINE (test code = 1517) TRACE Michael Borjas AustinCBC W/AUTO [id number] 00:00:00* Test Item Value Reference Range Interpretation Comme nts WBC (test code = 1001) 8.5 K/UL RBC (test code = 1002) 5.17 M/UL HEMOGLOBIN (test code = 1003) 13.5 G/DL HEMATOCRIT (test code = 1004) 43.3 % MCV (test code = 1005) 83.8 fL MCH (test code = 1006) 26.1 PG MCHC (test code = 1007) 31.2 G/DL RDW (test code = 1038) 14.5 % NEUTROPHILS (test code = 1008) 60.2 % LYMPHOCYTES (test code = 1010) 26.4 % MONOCYTES (test code = 1011) 10.7 % EOSINOPHILS (test code = 1012) 2.1 % BASOPHILS (test code = 1013) 0.4 % IMMATURE GRANULOCYTES (test code = 1036) 0.2 % NUCLEATED RBCS (test code = 1065) 0.0 /100WBC'S PLATELET COUNT (test code = 1015) 281 K/UL ABSOLUTE NEUTROPHILS (test c ode = 1066) 5.13 K/UL ABSOLUTE LYMPHOCYTES (test c ode = 1067) 2.25 K/UL ABSOLUTE MONOCYTES (test cod e = 1068) 0.91 K/UL ABSOLUTE EOSINOPHILS (test c ode = 1040) 0.18 K/UL ABSOLUTE BASOPHILS (test cod e = 1069) 0.03 K/UL ABS IMMATURE GRANULOCYTES (t est code = 1020) 0.02 K/UL ABS NUCLEATED RBCS (test cod e = 86529) 0.00 K/UL Michael MarinLIPID [id number] 00:00:00* Test Item Value Reference Range Interpretation Comme nts CHOLESTEROL (test code = 2210) 212 MG/DL TRIGLYCERIDES (test code = 2232) 69 MG/DL HDL CHOLESTEROL (test code = 2220) 60 MG/DL CALC LDL CHOL (test code = 2237) 136 MG/DL RISK RATIO LDL/HDL (test cod e = 2238) 2.27 RATIO Michael MarinCOMPREHENSIVE METABOLIC [id number] 00:00:00* Test Item Value Reference Range Interpretation Comme nts GLUCOSE (test code = 2217) 75 MG/DL BUN (test code = 2208) 9 MG/DL CREATININE (test code = 2214) 0.87 MG/DL eGFR (2020 CKD-EPI) (test co de = 58272) 75 ML/MIN/1.73 CALC BUN/CREAT (test code = 2235) 10 RATIO SODIUM (test code = 2231) 140 MEQ/L POTASSIUM (test code = 2228) 4.7 MEQ/L CHLORIDE (test code = 2215) 100 MEQ/L CARBON DIOXIDE (test code = 2206) 25 MEQ/L CALCIUM (test code = 2209) 9.7 MG/DL PROTEIN, TOTAL (test code = 2229) 7.7 G/DL ALBUMIN (test code = 2201) 4.7 G/DL CALC GLOBULIN (test code = 2240) 3.0 G/DL CALC A/G RATIO (test code = 2234) 1.6 RATIO BILIRUBIN, TOTAL (test code = 2207) 0.4 MG/DL ALKALINE PHOSPHATASE (test code = 2204) 124 U/L AST (test code = 2218) 17 U/L ALT (test code = 2219) 11 U/L Michael Borjas AustinURINALYSIS W/REFLEX [id number] 00:00:00* Test Item Value Reference Range Interpretation Comme nts COLOR (test code = 1501) YELLOW APPEARANCE (test code = 1502) CLEAR SPECIFIC GRAVITY (test code = 1503) 1.013 LEUKOCYTE ESTERASE (test cod e = 1504) 1+ NITRITE (test code = 1505) POSITIVE pH (test code = 1506) 6.5 PROTEIN (test code = 1507) NEGATIVE GLUCOSE (test code = 1508) NEGATIVE KETONES (test code = 1509) NEGATIVE UROBILINOGEN (test code = 1510) 1.0 MG/DL BILIRUBIN (test code = 1511) NEGATIVE OCCULT BLOOD (test code = 1512) NEGATIVE WHITE BLOOD CELLS (test code = 1513) 6-10 /HPF RED BLOOD CELLS (test code = 1514) 3-5 /HPF EPITHELIAL CELLS (test code = 52644) 6-10 /HPF BACTERIA (test code = 1515) 3+ CASTS, HYALINE (test code = 1517) TRACE Michael Borjas AustinCBC W/AUTO [id number] 00:00:00* Test Item Value Reference Range Interpretation Comme nts WBC (test code = 1001) 8.5 K/UL RBC (test code = 1002) 5.17 M/UL HEMOGLOBIN (test code = 1003) 13.5 G/DL HEMATOCRIT (test code = 1004) 43.3 % MCV (test code = 1005) 83.8 fL MCH (test code = 1006) 26.1 PG MCHC (test code = 1007) 31.2 G/DL RDW (test code = 1038) 14.5 % NEUTROPHILS (test code = 1008) 60.2 % LYMPHOCYTES (test code = 1010) 26.4 % MONOCYTES (test code = 1011) 10.7 % EOSINOPHILS (test code = 1012) 2.1 % BASOPHILS (test code = 1013) 0.4 % IMMATURE GRANULOCYTES (test code = 1036) 0.2 % NUCLEATED RBCS (test code = 1065) 0.0 /100WBC'S PLATELET COUNT (test code = 1015) 281 K/UL ABSOLUTE NEUTROPHILS (test c ode = 1066) 5.13 K/UL ABSOLUTE LYMPHOCYTES (test c ode = 1067) 2.25 K/UL ABSOLUTE MONOCYTES (test cod e = 1068) 0.91 K/UL ABSOLUTE EOSINOPHILS (test c ode = 1040) 0.18 K/UL ABSOLUTE BASOPHILS (test cod e = 1069) 0.03 K/UL ABS IMMATURE GRANULOCYTES (t est code = 1020) 0.02 K/UL ABS NUCLEATED RBCS (test cod e = 66434) 0.00 K/UL Michael Borjas TmoasLIPID [id number] 00:00:00* Test Item Value Reference Range Interpretation Comme nts CHOLESTEROL (test code = 2210) 212 MG/DL TRIGLYCERIDES (test code = 2232) 69 MG/DL HDL CHOLESTEROL (test code = 2220) 60 MG/DL CALC LDL CHOL (test code = 2237) 136 MG/DL RISK RATIO LDL/HDL (test cod e = 2238) 2.27 RATIO Michael Borjas TomasCOMPREHENSIVE METABOLIC [id number] 00:00:00* Test Item Value Reference Range Interpretation Comme nts GLUCOSE (test code = 2217) 75 MG/DL BUN (test code = 2208) 9 MG/DL CREATININE (test code = 2214) 0.87 MG/DL eGFR (2020 CKD-EPI) (test co de = 23657) 75 ML/MIN/1.73 CALC BUN/CREAT (test code = 2235) 10 RATIO SODIUM (test code = 2231) 140 MEQ/L POTASSIUM (test code = 2228) 4.7 MEQ/L CHLORIDE (test code = 2215) 100 MEQ/L CARBON DIOXIDE (test code = 2206) 25 MEQ/L CALCIUM (test code = 2209) 9.7 MG/DL PROTEIN, TOTAL (test code = 2229) 7.7 G/DL ALBUMIN (test code = 2201) 4.7 G/DL CALC GLOBULIN (test code = 2240) 3.0 G/DL CALC A/G RATIO (test code = 2234) 1.6 RATIO BILIRUBIN, TOTAL (test code = 2207) 0.4 MG/DL ALKALINE PHOSPHATASE (test code = 2204) 124 U/L AST (test code = 2218) 17 U/L ALT (test code = 2219) 11 U/L Michael Borjas TomasURINALYSIS W/REFLEX [id number] 00:00:00* Test Item Value Reference Range Interpretation Comme nts COLOR (test code = 1501) YELLOW APPEARANCE (test code = 1502) CLEAR SPECIFIC GRAVITY (test code = 1503) 1.013 LEUKOCYTE ESTERASE (test cod e = 1504) 1+ NITRITE (test code = 1505) POSITIVE pH (test code = 1506) 6.5 PROTEIN (test code = 1507) NEGATIVE GLUCOSE (test code = 1508) NEGATIVE KETONES (test code = 1509) NEGATIVE UROBILINOGEN (test code = 1510) 1.0 MG/DL BILIRUBIN (test code = 1511) NEGATIVE OCCULT BLOOD (test code = 1512) NEGATIVE WHITE BLOOD CELLS (test code = 1513) 6-10 /HPF RED BLOOD CELLS (test code = 1514) 3-5 /HPF EPITHELIAL CELLS (test code = 22897) 6-10 /HPF BACTERIA (test code = 1515) 3+ CASTS, HYALINE (test code = 1517) TRACE Michael Borjas [facility] W/AUTO [id number] 00:00:00* Test Item Value Reference Range Interpretation Comme nts WBC (test code = 1001) 8.5 K/UL RBC (test code = 1002) 5.17 M/UL HEMOGLOBIN (test code = 1003) 13.5 G/DL HEMATOCRIT (test code = 1004) 43.3 % MCV (test code = 1005) 83.8 fL MCH (test code = 1006) 26.1 PG MCHC (test code = 1007) 31.2 G/DL RDW (test code = 1038) 14.5 % NEUTROPHILS (test code = 1008) 60.2 % LYMPHOCYTES (test code = 1010) 26.4 % MONOCYTES (test code = 1011) 10.7 % EOSINOPHILS (test code = 1012) 2.1 % BASOPHILS (test code = 1013) 0.4 % IMMATURE GRANULOCYTES (test code = 1036) 0.2 % NUCLEATED RBCS (test code = 1065) 0.0 /100WBC'S PLATELET COUNT (test code = 1015) 281 K/UL ABSOLUTE NEUTROPHILS (test c ode = 1066) 5.13 K/UL ABSOLUTE LYMPHOCYTES (test c ode = 1067) 2.25 K/UL ABSOLUTE MONOCYTES (test cod e = 1068) 0.91 K/UL ABSOLUTE EOSINOPHILS (test c ode = 1040) 0.18 K/UL ABSOLUTE BASOPHILS (test cod e = 1069) 0.03 K/UL ABS IMMATURE GRANULOCYTES (t est code = 1020) 0.02 K/UL ABS NUCLEATED RBCS (test cod e = 75485) 0.00 K/UL Michael MarinLIPID [id number] 00:00:00* Test Item Value Reference Range Interpretation Comme nts CHOLESTEROL (test code = 2210) 212 MG/DL TRIGLYCERIDES (test code = 2232) 69 MG/DL HDL CHOLESTEROL (test code = 2220) 60 MG/DL CALC LDL CHOL (test code = 2237) 136 MG/DL RISK RATIO LDL/HDL (test cod e = 2238) 2.27 RATIO Michael MarinCOMPREHENSIVE METABOLIC [id number] 00:00:00* Test Item Value Reference Range Interpretation Comme nts GLUCOSE (test code = 2217) 75 MG/DL BUN (test code = 2208) 9 MG/DL CREATININE (test code = 2214) 0.87 MG/DL eGFR (2020 CKD-EPI) (test co de = 12883) 75 ML/MIN/1.73 CALC BUN/CREAT (test code = 2235) 10 RATIO SODIUM (test code = 2231) 140 MEQ/L POTASSIUM (test code = 2228) 4.7 MEQ/L CHLORIDE (test code = 2215) 100 MEQ/L CARBON DIOXIDE (test code = 2206) 25 MEQ/L CALCIUM (test code = 2209) 9.7 MG/DL PROTEIN, TOTAL (test code = 2229) 7.7 G/DL ALBUMIN (test code = 2201) 4.7 G/DL CALC GLOBULIN (test code = 2240) 3.0 G/DL CALC A/G RATIO (test code = 2234) 1.6 RATIO BILIRUBIN, TOTAL (test code = 2207) 0.4 MG/DL ALKALINE PHOSPHATASE (test code = 2204) 124 U/L AST (test code = 2218) 17 U/L ALT (test code = 2219) 11 U/L Michael Borjas AustinURINALYSIS W/REFLEX [id number] 00:00:00* Test Item Value Reference Range Interpretation Comme nts COLOR (test code = 1501) YELLOW APPEARANCE (test code = 1502) CLEAR SPECIFIC GRAVITY (test code = 1503) 1.013 LEUKOCYTE ESTERASE (test cod e = 1504) 1+ NITRITE (test code = 1505) POSITIVE pH (test code = 1506) 6.5 PROTEIN (test code = 1507) NEGATIVE GLUCOSE (test code = 1508) NEGATIVE KETONES (test code = 1509) NEGATIVE UROBILINOGEN (test code = 1510) 1.0 MG/DL BILIRUBIN (test code = 1511) NEGATIVE OCCULT BLOOD (test code = 1512) NEGATIVE WHITE BLOOD CELLS (test code = 1513) 6-10 /HPF RED BLOOD CELLS (test code = 1514) 3-5 /HPF EPITHELIAL CELLS (test code = 33404) 6-10 /HPF BACTERIA (test code = 1515) 3+ CASTS, HYALINE (test code = 1517) TRACE Michael Borjas [facility] W/AUTO [id number] 00:00:00* Test Item Value Reference Range Interpretation Comme nts WBC (test code = 1001) 8.5 K/UL RBC (test code = 1002) 5.17 M/UL HEMOGLOBIN (test code = 1003) 13.5 G/DL HEMATOCRIT (test code = 1004) 43.3 % MCV (test code = 1005) 83.8 fL MCH (test code = 1006) 26.1 PG MCHC (test code = 1007) 31.2 G/DL RDW (test code = 1038) 14.5 % NEUTROPHILS (test code = 1008) 60.2 % LYMPHOCYTES (test code = 1010) 26.4 % MONOCYTES (test code = 1011) 10.7 % EOSINOPHILS (test code = 1012) 2.1 % BASOPHILS (test code = 1013) 0.4 % IMMATURE GRANULOCYTES (test code = 1036) 0.2 % NUCLEATED RBCS (test code = 1065) 0.0 /100WBC'S PLATELET COUNT (test code = 1015) 281 K/UL ABSOLUTE NEUTROPHILS (test c ode = 1066) 5.13 K/UL ABSOLUTE LYMPHOCYTES (test c ode = 1067) 2.25 K/UL ABSOLUTE MONOCYTES (test cod e = 1068) 0.91 K/UL ABSOLUTE EOSINOPHILS (test c ode = 1040) 0.18 K/UL ABSOLUTE BASOPHILS (test cod e = 1069) 0.03 K/UL ABS IMMATURE GRANULOCYTES (t est code = 1020) 0.02 K/UL ABS NUCLEATED RBCS (test cod e = 85710) 0.00 K/UL Michael Borjas AustinLIPID [id number] 00:00:00* Test Item Value Reference Range Interpretation Comme nts CHOLESTEROL (test code = 2210) 212 MG/DL TRIGLYCERIDES (test code = 2232) 69 MG/DL HDL CHOLESTEROL (test code = 2220) 60 MG/DL CALC LDL CHOL (test code = 2237) 136 MG/DL RISK RATIO LDL/HDL (test cod e = 2238) 2.27 RATIO Michael MarinCOMPREHENSIVE METABOLIC [id number] 00:00:00* Test Item Value Reference Range Interpretation Comme nts GLUCOSE (test code = 2217) 75 MG/DL BUN (test code = 2208) 9 MG/DL CREATININE (test code = 2214) 0.87 MG/DL eGFR (2020 CKD-EPI) (test co de = 88547) 75 ML/MIN/1.73 CALC BUN/CREAT (test code = 2235) 10 RATIO SODIUM (test code = 2231) 140 MEQ/L POTASSIUM (test code = 2228) 4.7 MEQ/L CHLORIDE (test code = 2215) 100 MEQ/L CARBON DIOXIDE (test code = 2206) 25 MEQ/L CALCIUM (test code = 2209) 9.7 MG/DL PROTEIN, TOTAL (test code = 2229) 7.7 G/DL ALBUMIN (test code = 2201) 4.7 G/DL CALC GLOBULIN (test code = 2240) 3.0 G/DL CALC A/G RATIO (test code = 2234) 1.6 RATIO BILIRUBIN, TOTAL (test code = 2207) 0.4 MG/DL ALKALINE PHOSPHATASE (test code = 2204) 124 U/L AST (test code = 2218) 17 U/L ALT (test code = 2219) 11 U/L Michael Borjas AustinURINALYSIS W/REFLEX [id number] 00:00:00* Test Item Value Reference Range Interpretation Comme nts COLOR (test code = 1501) YELLOW APPEARANCE (test code = 1502) CLEAR SPECIFIC GRAVITY (test code = 1503) 1.013 LEUKOCYTE ESTERASE (test cod e = 1504) 1+ NITRITE (test code = 1505) POSITIVE pH (test code = 1506) 6.5 PROTEIN (test code = 1507) NEGATIVE GLUCOSE (test code = 1508) NEGATIVE KETONES (test code = 1509) NEGATIVE UROBILINOGEN (test code = 1510) 1.0 MG/DL BILIRUBIN (test code = 1511) NEGATIVE OCCULT BLOOD (test code = 1512) NEGATIVE WHITE BLOOD CELLS (test code = 1513) 6-10 /HPF RED BLOOD CELLS (test code = 1514) 3-5 /HPF EPITHELIAL CELLS (test code = 96710) 6-10 /HPF BACTERIA (test code = 1515) 3+ CASTS, HYALINE (test code = 1517) TRACE Michael MarinC W/AUTO [id number] 00:00:00* Test Item Value Reference Range Interpretation Comme nts WBC (test code = 1001) 8.5 K/UL RBC (test code = 1002) 5.17 M/UL HEMOGLOBIN (test code = 1003) 13.5 G/DL HEMATOCRIT (test code = 1004) 43.3 % MCV (test code = 1005) 83.8 fL MCH (test code = 1006) 26.1 PG MCHC (test code = 1007) 31.2 G/DL RDW (test code = 1038) 14.5 % NEUTROPHILS (test code = 1008) 60.2 % LYMPHOCYTES (test code = 1010) 26.4 % MONOCYTES (test code = 1011) 10.7 % EOSINOPHILS (test code = 1012) 2.1 % BASOPHILS (test code = 1013) 0.4 % IMMATURE GRANULOCYTES (test code = 1036) 0.2 % NUCLEATED RBCS (test code = 1065) 0.0 /100WBC'S PLATELET COUNT (test code = 1015) 281 K/UL ABSOLUTE NEUTROPHILS (test c ode = 1066) 5.13 K/UL ABSOLUTE LYMPHOCYTES (test c ode = 1067) 2.25 K/UL ABSOLUTE MONOCYTES (test cod e = 1068) 0.91 K/UL ABSOLUTE EOSINOPHILS (test c ode = 1040) 0.18 K/UL ABSOLUTE BASOPHILS (test cod e = 1069) 0.03 K/UL ABS IMMATURE GRANULOCYTES (t est code = 1020) 0.02 K/UL ABS NUCLEATED RBCS (test cod e = 65928) 0.00 K/UL Michael MarinLIPID [id number] 00:00:00* Test Item Value Reference Range Interpretation Comme nts CHOLESTEROL (test code = 2210) 212 MG/DL TRIGLYCERIDES (test code = 2232) 69 MG/DL HDL CHOLESTEROL (test code = 2220) 60 MG/DL CALC LDL CHOL (test code = 2237) 136 MG/DL RISK RATIO LDL/HDL (test cod e = 2238) 2.27 RATIO Michael MarinCOMPREHENSIVE METABOLIC [id number] 00:00:00* Test Item Value Reference Range Interpretation Comme nts GLUCOSE (test code = 2217) 75 MG/DL BUN (test code = 2208) 9 MG/DL CREATININE (test code = 2214) 0.87 MG/DL eGFR (2020 CKD-EPI) (test co de = 43472) 75 ML/MIN/1.73 CALC BUN/CREAT (test code = 2235) 10 RATIO SODIUM (test code = 2231) 140 MEQ/L POTASSIUM (test code = 2228) 4.7 MEQ/L CHLORIDE (test code = 2215) 100 MEQ/L CARBON DIOXIDE (test code = 2206) 25 MEQ/L CALCIUM (test code = 2209) 9.7 MG/DL PROTEIN, TOTAL (test code = 2229) 7.7 G/DL ALBUMIN (test code = 2201) 4.7 G/DL CALC GLOBULIN (test code = 2240) 3.0 G/DL CALC A/G RATIO (test code = 2234) 1.6 RATIO BILIRUBIN, TOTAL (test code = 2207) 0.4 MG/DL ALKALINE PHOSPHATASE (test code = 2204) 124 U/L AST (test code = 2218) 17 U/L ALT (test code = 2219) 11 U/L Michael Borjas AustinURINALYSIS W/REFLEX [id number] 00:00:00* Test Item Value Reference Range Interpretation Comme nts COLOR (test code = 1501) YELLOW APPEARANCE (test code = 1502) CLEAR SPECIFIC GRAVITY (test code = 1503) 1.013 LEUKOCYTE ESTERASE (test cod e = 1504) 1+ NITRITE (test code = 1505) POSITIVE pH (test code = 1506) 6.5 PROTEIN (test code = 1507) NEGATIVE GLUCOSE (test code = 1508) NEGATIVE KETONES (test code = 1509) NEGATIVE UROBILINOGEN (test code = 1510) 1.0 MG/DL BILIRUBIN (test code = 1511) NEGATIVE OCCULT BLOOD (test code = 1512) NEGATIVE WHITE BLOOD CELLS (test code = 1513) 6-10 /HPF RED BLOOD CELLS (test code = 1514) 3-5 /HPF EPITHELIAL CELLS (test code = 99695) 6-10 /HPF BACTERIA (test code = 1515) 3+ CASTS, HYALINE (test code = 1517) TRACE Michael MarinCBC W/AUTO [id number] 00:00:00* Test Item Value Reference Range Interpretation Comme nts WBC (test code = 1001) 8.5 K/UL RBC (test code = 1002) 5.17 M/UL HEMOGLOBIN (test code = 1003) 13.5 G/DL HEMATOCRIT (test code = 1004) 43.3 % MCV (test code = 1005) 83.8 fL MCH (test code = 1006) 26.1 PG MCHC (test code = 1007) 31.2 G/DL RDW (test code = 1038) 14.5 % NEUTROPHILS (test code = 1008) 60.2 % LYMPHOCYTES (test code = 1010) 26.4 % MONOCYTES (test code = 1011) 10.7 % EOSINOPHILS (test code = 1012) 2.1 % BASOPHILS (test code = 1013) 0.4 % IMMATURE GRANULOCYTES (test code = 1036) 0.2 % NUCLEATED RBCS (test code = 1065) 0.0 /100WBC'S PLATELET COUNT (test code = 1015) 281 K/UL ABSOLUTE NEUTROPHILS (test c ode = 1066) 5.13 K/UL ABSOLUTE LYMPHOCYTES (test c ode = 1067) 2.25 K/UL ABSOLUTE MONOCYTES (test cod e = 1068) 0.91 K/UL ABSOLUTE EOSINOPHILS (test c ode = 1040) 0.18 K/UL ABSOLUTE BASOPHILS (test cod e = 1069) 0.03 K/UL ABS IMMATURE GRANULOCYTES (t est code = 1020) 0.02 K/UL ABS NUCLEATED RBCS (test cod e = 12645) 0.00 K/UL Michael MarinLIPID [id number] 00:00:00* Test Item Value Reference Range Interpretation Comme nts CHOLESTEROL (test code = 2210) 212 MG/DL TRIGLYCERIDES (test code = 2232) 69 MG/DL HDL CHOLESTEROL (test code = 2220) 60 MG/DL CALC LDL CHOL (test code = 2237) 136 MG/DL RISK RATIO LDL/HDL (test cod e = 2238) 2.27 RATIO Michael MarinCOMPREHENSIVE METABOLIC [id number] 00:00:00* Test Item Value Reference Range Interpretation Comme nts GLUCOSE (test code = 2217) 75 MG/DL BUN (test code = 2208) 9 MG/DL CREATININE (test code = 2214) 0.87 MG/DL eGFR (2020 CKD-EPI) (test co de = 98498) 75 ML/MIN/1.73 CALC BUN/CREAT (test code = 2235) 10 RATIO SODIUM (test code = 2231) 140 MEQ/L POTASSIUM (test code = 2228) 4.7 MEQ/L CHLORIDE (test code = 2215) 100 MEQ/L CARBON DIOXIDE (test code = 2206) 25 MEQ/L CALCIUM (test code = 2209) 9.7 MG/DL PROTEIN, TOTAL (test code = 2229) 7.7 G/DL ALBUMIN (test code = 2201) 4.7 G/DL CALC GLOBULIN (test code = 2240) 3.0 G/DL CALC A/G RATIO (test code = 2234) 1.6 RATIO BILIRUBIN, TOTAL (test code = 2207) 0.4 MG/DL ALKALINE PHOSPHATASE (test code = 2204) 124 U/L AST (test code = 2218) 17 U/L ALT (test code = 2219) 11 U/L Michael Borjas AustinURINALYSIS W/REFLEX [id number] 00:00:00* Test Item Value Reference Range Interpretation Comme nts COLOR (test code = 1501) YELLOW APPEARANCE (test code = 1502) CLEAR SPECIFIC GRAVITY (test code = 1503) 1.013 LEUKOCYTE ESTERASE (test cod e = 1504) 1+ NITRITE (test code = 1505) POSITIVE pH (test code = 1506) 6.5 PROTEIN (test code = 1507) NEGATIVE GLUCOSE (test code = 1508) NEGATIVE KETONES (test code = 1509) NEGATIVE UROBILINOGEN (test code = 1510) 1.0 MG/DL BILIRUBIN (test code = 1511) NEGATIVE OCCULT BLOOD (test code = 1512) NEGATIVE WHITE BLOOD CELLS (test code = 1513) 6-10 /HPF RED BLOOD CELLS (test code = 1514) 3-5 /HPF EPITHELIAL CELLS (test code = 09364) 6-10 /HPF BACTERIA (test code = 1515) 3+ CASTS, HYALINE (test code = 1517) TRACE Michael Marin Notes Date/Time Note [facility]2025-05-01 00:00:00 [facility]2025-04-02 00:00:00 [facility]2025-03-12 00:00:00 [facility]2025-03-07 00:00:00 [facility]2024-11-18 00:00:00 [facility]2024-09-13 00:00:00 [facility]
[2025-03-27] MEDS ORDERED: GABAPENTIN 300 MG CAP ONE (12:07)
--- NOTE | 2025-03-27 12:43 | RAD REPORT ---
EXAMINATION: CT LUMBAR SPINE WITHOUT CONTRAST CLINICAL INDICATION: Female, 64 years old. Pain;Radiculopathy TECHNIQUE: Axial CT images were obtained through the lumbar spine in soft tissue and bone windows wit hout intravenous contrast. Coronal and Sagittal reformatted images were created from the data set. One or more of the following dose reduction techniques were used: Automated exposure control, adjustm ent of the mA and/ or kV according to patient size, and/or iterative reconstruction. Unless otherwise specified, incidental findings do not require dedicated imaging follow-up. COMPARISON: No prior exam. FINDINGS: For purposes of this dictation, it is assumed that there are 5 non rib-bearing lumbar type vertebrae, and the most caudal fully segmented lumbar vertebra is labeled L5. ALIGNMENT: 10 mm degenerative anterolisthesis noted of L5 on S1. BONES: No significant soft tissue abnormalities. No aggressive osseous lesions. DISCS: Disc thinning with broad-based posterior disc bulging lower lumbar spine. LEVELS: Evidence of previous surgery suspected at L5-S1 with bony fusion of the facet joints. There i s mild central canal narrowing seen at the lower lumbar levels. SOFT TISSUE: No soft tissue abnormalities. IMPRESSION: No acute lumbar spine abnormalities. Moderate lower lumbar spondylosis with evidence of prior surgical intervention. Chronic appearing 10 mm degenerative retrolisthesis L5 on S1.
--- NOTE | 2025-03-27 13:06 | ER ---
Nurse's Notes [facility] Name: Chery Mane Age: 64 yrs Sex: Female : 1960 Arrival Date: 03/27/2025 Time: 11:36 Bed 13 Private MD: Diagnosis: Lumbago with sciatica, right side Presentation: 03/27 11:59 Chief complaint: Patient states: Right low back and hip pain x 1 week. Coronavirus jl7 screen: At this time, the client does not indicate any symptoms associated with coronavirus-19. Ebola Screen: No symptoms or risks identified at this time. Initial Sepsis Screen: Does the patient meet any 2 criteria? No. Patient's initial sepsis screen is negative. Does the patient have a suspected source of infection? No. Patient's initial sepsis screen is negative. Risk Assessment: Do you want to hurt yourself or someone else? Patient reports no desire to harm self or others. Onset of symptoms was March 20, 2025. 11:59 Method Of Arrival: Ambulatory [facility] 11:59 Acuity: JOHANN 4 jl7 Triage Assessment: 12:02 General: Appears in no apparent distress. Behavior is calm, cooperative, appropriate jl7 for age. Pain: Complains of pain in right low back Pain currently is 10 out of 10 on a pain scale. Historical: - Allergies: 12:02 Codeine; jl7 12:02 Sulfa (Sulfonamide Antibiotics); jl7 12:02 tramadol; jl7 - PMHx: 12:02 Atrial fibrillation; CAD; Hyperlipidemia; Hypertension; Myocardial infarction; jl7 Congestive heart failure; - PSHx: 12:02 Leg sx; jl7 - Immunization history:: Adult Immunizations up to date. - Infectious Disease History:: Denies. - Social history:: Smoking status: Patient denies any tobacco usage or history of. Screenin:09 [facility] ED Fall Risk Assessment (Adult) History of falling in the last 3 months, db including since admission No falls in past 3 months (0 pts) Confusion or Disorientation No (0 pts) Intoxicated or Sedated No (0 pts) Impaired Gait No (0 pts) Mobility Assist Device Used No (0 pt) Altered Elimination No (0 pt) Score/Fall Risk Level 0 - 2 = Low Risk Oriented to surroundings, Maintained a safe environment. Abuse screen: Denies threats or abuse. Denies injuries from another. Nutritional screening: No deficits noted. Tuberculosis screening: No symptoms or risk factors identified. Assessment: 13:09 Reassessment: Patient appears in no apparent distress at this time. Patient and/or db family updated on plan of care and expected duration. Pain level reassessed. Patient is alert, oriented x 3, equal unlabored respirations, skin warm/dry/pink. General: Appears in no apparent distress. comfortable, Behavior is calm, cooperative. Neuro: Level of Consciousness is awake, alert, obeys commands, Oriented to person, place, time, situation. Vital Signs: 11:59 BP 144 / 123; Pulse 86; Resp 17; Temp 97; Pulse Ox 100% ; Weight 108.86 kg; Height 5 jl7 ft. 7 in. ; Pain 10/10; 12:15 BP 137 / 61; Pulse 62; Resp 16; Pulse Ox 99% ; db 13:09 BP 151 / 73; Pulse 63; Resp 16; Pulse Ox 100% on R/A; db 11:59 Body Mass Index 37.59 (108.86 kg, 170.18 cm) jl7 11:59 Pain Scale: Adult jl7 ED Course: 11:41 Patient arrived in ED. cj3 11:42 Grisel Curry PA-C is PHCP. sb4 11:42 Alexander Ulloa MD is Attending Physician. sb4 12:02 Triage completed. jl7 12:02 Arm band placed on right wrist. jl7 12:05 Elke Dunn, RN is Primary Nurse. db 12:34 CT Lumbar Spine Wo Con In Process Unspecified. EDMS 13:09 Patient has correct armband on for positive identification. Placed in gown. Bed in low db position. Call light in reach. Side rails up X 1. Provided Education on: FOLLOWUP CARE. Pillow given. 13:09 No provider procedures requiring assistance completed. Patient did not have IV access db during this emergency room visit. Administered Medications: 12:14 Drug: Gabapentin PO 600 mg PO once Route: PO; db 13:23 Follow up: Response: No adverse reaction db 12:14 Drug: Dexamethasone IM 10 mg IM once Route: IM; Site: right deltoid; db 13:23 Follow up: Response: No adverse reaction db Medication: 13:09 VIS not applicable for this client. db Outcome: 13:06 Discharge ordered by MD. romeo 13:21 Discharged to home ambulatory, with family, db 13:21 Condition: stable 13:21 Discharge instructions given to patient, family, Instructed on discharge instructions, follow up and referral plans. Prescriptions given X 3, 13:23 Patient left the ED. db Signatures: Dispatcher [employer] Otf Whalen RN RN jl7 Elke Dunn RN RN db Brown, Sophia, PA-C PA-C [id number] Danyell Swartz cj3
--- NOTE | 2025-03-27 13:06 | EDPHYS ---
Physician Documentation [facility] Name: Chery Mane Age: 64 yrs Sex: Female : 1960 Arrival Date: 03/27/2025 Time: 11:36 Bed 13 Private MD: ED Physician Alexander Ulloa HPI: 03/27 12:01 This 64 yrs old Black Female presents to ER via Unassigned with complaints of Hip Pain, sb4 Leg Pain. 12:01 Patient reports right low back/hip pain for about 1 week now. She denies any injury. sb4 States the pain radiates down her leg. Denies any numbness or tingling. Denies any urinary or bowel incontinence. Denies any saddle paresthesia. Denies any prior episodes of this. States that about 2 weeks ago, she was on antibiotics and steroids for bronchitis. Has tried putting Biofreeze on the area without significant improvement in symptoms. Did take Tylenol PM last night. Historical: - Allergies: 12:02 Codeine; jl7 12:02 Sulfa (Sulfonamide Antibiotics); jl7 12:02 tramadol; jl7 - PMHx: 12:02 Atrial fibrillation; CAD; Hyperlipidemia; Hypertension; Myocardial infarction; jl7 Congestive heart failure; - PSHx: 12:02 Leg sx; jl7 - Immunization history:: Adult Immunizations up to date. - Infectious Disease History:: Denies. - Social history:: Smoking status: Patient denies any tobacco usage or history of. ROS: 12:01 Constitutional: Negative for fever, chills, and weight loss, sb4 12:01 Back: Positive for pain at rest, of the right low back, 12:01 All other systems are negative, Exam: 12:01 Head/Face: Normocephalic, atraumatic. Eyes: Extra-ocular motions intact. Periorbital sb4 areas with no swelling, redness, or edema. ENT: Mucous membranes moist. Respiratory: No increased work of breathing, no retractions or nasal flaring. Skin: Warm, dry with normal turgor. Normal color with no rashes, no lesions, and no evidence of cellulitis. MS/ Extremity: Pulses equal, no cyanosis. Neurovascular intact. Full, normal range of motion. Neuro: Awake and alert, GCS 15, oriented to person, place, time, and situation. Motor strength 5/5 in all extremities. Sensory grossly intact. 12:01 Constitutional: The patient appears in no acute distress, alert, awake, 12:01 Back: pain, that is mild, of the right low back, ROM is painful, with all movement, normal spinal alignment noted, CVA tenderness, is absent, vertebral tenderness, is not appreciated, muscle spasm, is not present, Vital Signs: 11:59 BP 144 / 123; Pulse 86; Resp 17; Temp 97; Pulse Ox 100% ; Weight 108.86 kg; Height 5 jl7 ft. 7 in. ; Pain 10/10; 12:15 BP 137 / 61; Pulse 62; Resp 16; Pulse Ox 99% ; db 13:09 BP 151 / 73; Pulse 63; Resp 16; Pulse Ox 100% on R/A; db 11:59 Body Mass Index 37.59 (108.86 kg, 170.18 cm) jl7 11:59 Pain Scale: Adult jl7 MDM: 11:43 Medical Screening Exam initiated sb4 12:03 Differential diagnosis: bursitis, arthritis, strain, sciatica. sb4 13:05 Data reviewed: vital signs, nurses notes, radiologic studies, and as a result, I will sb4 discharge patient. Counseling: I had a detailed discussion with the patient and/or guardian regarding the historical points, exam findings, and any diagnostic results supporting the discharge/admit diagnosis, radiology results, the need for outpatient follow up, for definitive care, to return to the emergency department if symptoms worsen or persist or if there are any questions or concerns that arise at home. 13:07 Care significantly affected by the following chronic conditions: Hypertension, sb4 Congestive Heart Failure, Chronic Obstructive Pulmonary Disease, Obesity. 03/27 11:58 Order name: CT Lumbar Spine Wo Con; Complete Time: 12:44 sb4 Administered Medications: 12:14 Drug: Gabapentin PO 600 mg PO once Route: PO; db 13:23 Follow up: Response: No adverse reaction db 12:14 Drug: Dexamethasone IM 10 mg IM once Route: IM; Site: right deltoid; db 13:23 Follow up: Response: No adverse reaction db Disposition: 16:07 Co-signature as Attending Physician, Alexander Ulloa MD I reviewed the patient's care rn provided by the Advanced Practice Provider and agree with the diagnosis and treatment plan. Disposition Summary: 03/27/25 13:06 Discharge Ordered Notes: Location: Home sb4 Problem: new sb4 Symptoms: have improved sb4 Condition: Stable sb4 Diagnosis - Lumbago with sciatica, right side sb4 Followup: sb4 - With: Private Physician - When: As needed - Reason: Recheck today's complaints, Re-evaluation by your physician Discharge Instructions: - Discharge Summary Sheet sb4 - Sciatica sb4 - Back Exercises, Qkul-[id number] sb4 Forms: - Patient Portal Instructions sb4 - Leadership Thank You Letter sb4 Prescriptions: - gabapentin 300 mg Oral capsule - take 1 capsule ORAL route 2 times per day; 10 capsule; Refills: 0, Product sb4 Selection Permitted - meloxicam 7.5 mg Oral tablet - take 1 tablet ORAL route daily; 5 tablet; Refills: 0, Product Selection sb4 Permitted - Prednisone 20 mg Oral Tablet - take 1 tablet ORAL route once daily for 5 days; 5 tablet; Refills: 0, Product sb4 Selection Permitted Signatures: Dispatcher [employer] EDAlexander Saldana MD MD rn Leal, Jahala, RN RN Elke Damico RN Grisel Marcelo, PAMiles PA-Rigoberto sb4
[2025-03-27 13:28] VITALS: TEMP 97
[2025-03-27 13:31] VITALS: BP 151/73; O2SAT 100
== END 2025-03-27 13:23 | disposition home or self-care (01) ==
LOC: ER 11:36
DX: M54.41 Lumbago with sciatica, right side (principal); I10 Essential (primary) hypertension; I48.91 Unspecified atrial fibrillation; Z88.2 Allergy status to sulfonamides; Z88.5 Allergy status to narcotic agent
CPT/HCPCS: 72131; 96372; 99284; J1100